=== PATIENT | female | born 1940 | race Caucasian/White ===

== ENCOUNTER 2021-05-27 18:54 | Inpatient (IN) ==
[2021-05-27] MEDS ORDERED: IOPAMIDOL 100 ML BOTTLE IV ONE (18:55)
--- NOTE | 2021-05-27 19:19 | Emergency Department Note ---
HPI General Chief complaint: Abdominal Pain Stated complaint: Abdominal pain Time Seen by Provider: 05/27/21 19:18 Source: patient and family (son) Mode of arrival: ambulatory Limitations: no limitations History of Present Illness HPI Narrative: Narrative: 81-year-old female presents emergency department complaining of severe right lower quadrant pain that radiates across the lower abdomen to the left lower quadrant. She rates the pain is a 10 on a 0-to-10 scale. States it is constant. Describes it as sharp. No prior similar. States it has somewhat of a rumbly feeling with it. States the pain began at 1430 today. Has associated mild bilateral lower back pain. Nothing makes it better. Palpation makes it worse. Patient has a history of diverticulitis and possibly polyps. She had a partial colectomy years ago. Patient has COPD which has left her oxygen dependent. States that she quit smoking tobacco. Related Data Home Medications Medication Instructions Recorded Confirmed ascorbate calcium (vitamin C) 500 500 mg PO QDAY 05/23/19 05/28/21 mg tablet cholecalciferol (vitamin D3) 1,000 mg PO DAILY 05/23/19 05/28/21 lorazepam 0.5 mg tablet 0.5 mg PO PRN PRN 05/27/21 05/28/21 Previous Rx's Medication Instructions Recorded fluticasone fur. 100 mcg-umeclid 1 inh INHALATION Q24H #60 ea 11/16/20 62.5 mcg-vilant 25 mcg inhalat.powder (Trelegy Ellipta) lisinopril 20 mg tablet 20 mg PO QDAY #90 tab 11/30/20 Allergies Allergy/AdvReac Type Severity Reaction Status Date / Time prednisone Allergy Intermediate Nervousness Verified 05/27/21 18:58 Review of Systems ROS ROS Narrative: Narrative: Constitutional: Denies fever Eyes: Denies eye pain ENT ED: Reports rhinorrhea; Denies ear pain or throat pain Cardiovascular: Denies chest pain Respiratory: Reports shortness of breath (Chronic, COPD,.) Gastrointestinal: Reports abdominal pain (Right lower quadrant with radiation to the left lower quadrant); Denies nausea or vomiting Genitourinary: Denies dysuria Musculoskeletal: Reports back pain Integumentary: Denies rash Neurological: Denies headache Psychiatric: Reports anxiety; Denies depression Hematological/Lymphatic: Denies easy bleeding Allergic/Immunologic: Denies facial swelling PFSH Narrative Patient History Narrative: Narrative: Medical/Surgical/Family History All Active Problems (Updated 05/28/21 @ 11:34 by Stef Bruno MD) Small bowel obstruction (Acute) COPD (chronic obstructive pulmonary disease) (Acute) Diverticulosis of colon (Acute) SBO (small bowel obstruction) (Acute) Allergic contact dermatitis (Acute) Acute diverticulitis (Chronic) Lower abdominal pain (Chronic) Medicare annual wellness visit, subsequent (Chronic) Asymptomatic bacteriuria (Chronic) Community acquired pneumonia (Chronic) Generalized anxiety disorder with panic attacks (Chronic) Osteoporosis (Chronic) Hypoxia (Chronic) HTN (hypertension) (Chronic) Emphysema of lung (Chronic) Bronchitis (Chronic) Mumps (Chronic) Measles (Chronic) Diverticulitis (Chronic ~2006) COPD (chronic obstructive pulmonary disease) (Chronic) Medication side effects (Chronic) Acute anxiety (Chronic) Abdominal pain (Chronic) Medical History Abdominal pain Acute anxiety Acute exacerbation of chronic obstructive airways disease Treated for pneumonia with COPD exacerbation. Back to baseline. Continue baseline treatment for COPD including Pulmicort, Anoro, as needed albuterol, and supplemental O2. Bronchitis COPD (chronic obstructive pulmonary disease) Diverticulitis (~2006) Emphysema of lung HTN (hypertension) Well-controlled at rest Continue lisinopril 20 mg daily Low-sodium diet Hypoxia 3 L continuously Measles As a child Medicare annual wellness visit, subsequent Medication side effects Mumps As a child Surgical History H/O section History of colonoscopy History of hernia repair History of hysterectomy Hx of appendectomy Hx of tonsillectomy S/P KLARISSA-BSO (~1969) Family History Father Old age Father Old age Social History Smoking Status: Former smoker Alcohol Intake Frequency: holiday/special occasion only Substance Use: does not use Exam Narrative Narrative: Narrative: Well-developed well-nourished almost cachectic appearing elderly female. Moderate acute distress. General Limitations: no limitations General appearance: Present alert and in distress Head Head: Present atraumatic and normocephalic Eye Eye: Present normal appearance and EOMI ENT ENT: Present mucous membranes moist and other (Mostly edentulous. Rotten tooth left upper.) Neck Neck: Present normal inspection, full ROM and trachea midline Chest Chest: Present symmetric chest wall rise Respiratory Respiratory: Present normal lung sounds bilaterally; Absent respiratory distress or wheezes Cardiovascular Cardiovascular: Present regular rate and normal rhythm Adbominal Abdominal: Present tenderness (Right lower quadrant at McBurney's point maximally. No rebound tenderness. Minimal to no referred pain with palpation.) and guarding; Absent rebound Extremities Extremities: Present normal inspection; Absent pedal edema Back Back: Present normal inspection and tenderness (Minimal tenderness with percussion of lower back bilaterally.) Neurological Neurological: Present alert and oriented X3 Psychiatric Psychiatric: Present normal affect and normal mood Skin Skin: Present warm (WNL) and dry Course Reevaluation(s) Reevaluation #1: Patient states her pain after the first dose of morphine was now down to a 4 or 5 out of 10. She was laughing with her son. I advised her that she may require hospitalization for this small bowel obstruction. Time: 20:50 Consultations Consultation #1: Patient CT came back showing findings consistent with small bowel obstruction. I discussed the case with our on-call surgeon Dr. Almaguer. He felt that because the patient was O2 dependent with her COPD and that she may require surgery which could lead to complications which could require an ICU stay and because we do not have a brass finisher and because we do not have an bottle feeder and because the patient could have an extended course he felt itwas most appropriate for the patient to be transferred to a higher level of care. Time: 20:40 Consultation #2: Discussed with Dr. Aj the hospitalist at [facility]. He pointed out that it would be a lateral transfer since they do not have a brass finisher or bottle feeder either. He stated that 60 to 70% of the time patients with this small bowel obstruction will resolve on their own and go home and not require surgery. He suggested that our hospitalist may be able to admit the patient to this facility since the patient today does not require higher level of care. If the patient fell into the category that did require higher level of care later in the patient be transferred to that point. Time: 21:35 Vital Signs Vital signs: Vital Signs Temperature 97.5 F 05/27/21 18:55 Pulse Rate 91 H 05/27/21 18:55 Respiratory Rate 22 05/27/21 18:55 Blood Pressure 167/97 05/27/21 18:55 Pulse Oximetry (%) 98 05/27/21 18:55 Temperature 97.7 F 05/28/21 07:23 Pulse Rate 73 05/28/21 07:23 Respiratory Rate 18 05/28/21 07:23 Blood Pressure 109/63 05/28/21 07:23 Pulse Oximetry (%) 99 05/28/21 08:30 MDM MDM Narrative Medical decision making narrative: Narrative: Elderly cachectic female presents to the emergency department complaining of s evere right lower quadrant pain. History of partial colectomy secondary to diverticulitis and possibly polyps. Quit smoking but has oxygen dependent COPD. Differential diagnosis includes acute appendicitis, diverticulitis, perforated viscus, Meckel's diverticulum, UTI, pyelonephritis, bowel obstruction, tumor, other UA will be obtained to evaluate for urinary tract infection or pyelonephritis. Blood work will be obtained to assess the patient. CT scan of the abdomen is pending. Patient was medicated with morphine initially to help control her 10 out of 10 pain. She was given Zofran for control of nausea. White count normal at 10.4. hg. 13.1. plt 145. LACTATE normal at 1.0. lipase normal at 44. Chem panel unremarkable. UA neg. CT = Extensive Diverticulosis. small bowel obstruction with transition point within the RLQ. Discussed paraprofessional aide Surgeon Dr. Almaguer. He felt pt. should be transferred to higher level of care because we did not have brass finisher nor bottle feeder. Discussed with Dr. Vitale, hospitalist at [facility]. He said they were not a higher level of care, but this was a pt. that they would admit if she presented to their hospital. He felt our hospitalist would likely admit since 60-70% of these pt. are discharged home without surgery. Said if our hospitalist would not admit, then call him back and he would accept even though they do not have a brass finisher nor an bottle feeder. Discussed with our hospitalist Dr. Shay. He had some concerns about the difficulty of transferring the pt. if pt needed higher level of care. he also said chance of pt. gonig home without surgery was >70%. he agreed to accept the pt. for admission. Post Morphine 2 mg. pt. was feeling much better. Covid test negative. Lab Data Result diagrams: 05/27/21 19:39 05/28/21 05:27 Labs: Lab Results 05/27/21 05/27/21 05/27/21 Range/Units 19:39 19:39 19:39 WBC 10.4 (4.5-11.0) K/mcL RBC 4.17 (3.59-5.38) M/mcL Hgb 13.1 (11.2-15.7) g/dL Hct 41.0 (34.1-44.9) % MCV 98.3 (80.0-100.0) fL MCH 31.4 (26.0-34.0) pg MCHC 32.0 (31.0-36.0) g/dL RDW 12.7 (11.5-14.5) % Plt Count 145 (140-440) K/mcL MPV 13.6 H (7.4-10.4) fL Neut % (Auto) 82.4 H (38.0-78.0) % Lymph % (Auto) 10.0 L (15.5-49.0) % [place] % (Auto) 6.0 (1.0-12.0) % Eos % (Auto) 1.3 (0.0-7.0) % Baso % (Auto) 0.3 (0.0-2.0) % Lymph # (Auto) 1.04 L (1.50-4.80) K/mcL [place] # (Auto) 0.62 (0.10-0.90) K/mcL Eos # (Auto) 0.14 (0.00-0.70) K/mcL Baso # (Auto) 0.03 (0.00-0.30) K/mcL Absolute Neutrophils 8.56 H (1.80-8.00) K/mcL VBG Lactic Acid 1.0 (0.5-2.0) mmol/L Sodium 137 (133-145) mmol/L Potassium 4.0 (3.3-5.1) mmol/L Chloride 98 (96-108) mmol/L Carbon Dioxide 33 H (22-30) mmol/L Anion Gap 6.0 L (8.0-16.0) BUN 12 (8-23) mg/dL Creatinine 0.5 L (0.6-1.1) mg/dL POC Creatinine 0.6 (0.6-1.2) mg/dL GFR Calculation 91 Glucose 118 H (70-105) mg/dL Calcium 9.6 (8.6-10.4) mg/dL Total Bilirubin 0.5 (0.1-1.0) mg/dL AST 21 (<32) U/L ALT 16 (<40) U/L Alkaline Phosphatase 69 (39-117) U/L Total Protein 6.7 (5.9-8.4) gm/dL Albumin 4.2 (3.2-5.2) gm/dL Globulin 2.5 (2.2-3.7) gm/dL Albumin/Globulin Ratio 1.7 (1.0-2.3) Lipase 44 (7-60) U/L Urine Color Urine Appearance (Clear) Urine pH (5.0-9.0) Ur Specific [place] (1.000-1.035) Urine Protein (Negative) mg/dL Urine Glucose (UA) (Negative) mg/dL Urine Ketones (Negative) mg/dL Urine Occult Blood (Negative) mg/dL Urine Nitrate (Negative) Urine Bilirubin (Negative) mg/dL Urine Urobilinogen mg/dL Ur Leukocyte Esterase (Negative) /uL Ur Culture Indicated? 05/27/21 Range/Units 20:55 WBC (4.5-11.0) K/mcL RBC (3.59-5.38) M/mcL Hgb (11.2-15.7) g/dL Hct (34.1-44.9) % MCV (80.0-100.0) fL MCH (26.0-34.0) pg MCHC (31.0-36.0) g/dL RDW (11.5-14.5) % Plt Count (140-440) K/mcL MPV (7.4-10.4) fL Neut % (Auto) (38.0-78.0) % Lymph % (Auto) (15.5-49.0) % [place] % (Auto) (1.0-12.0) % Eos % (Auto) (0.0-7.0) % Baso % (Auto) (0.0-2.0) % Lymph # (Auto) (1.50-4.80) K/mcL [place] # (Auto) (0.10-0.90) K/mcL Eos # (Auto) (0.00-0.70) K/mcL Baso # (Auto) (0.00-0.30) K/mcL Absolute Neutrophils (1.80-8.00) K/mcL VBG Lactic Acid (0.5-2.0) mmol/L Sodium (133-145) mmol/L Potassium (3.3-5.1) mmol/L Chloride (96-108) mmol/L Carbon Dioxide (22-30) mmol/L Anion Gap (8.0-16.0) BUN (8-23) mg/dL Creatinine (0.6-1.1) mg/dL POC Creatinine (0.6-1.2) mg/dL GFR Calculation Glucose (70-105) mg/dL Calcium (8.6-10.4) mg/dL Total Bilirubin (0.1-1.0) mg/dL AST (<32) U/L ALT (<40) U/L Alkaline Phosphatase (39-117) U/L Total Protein (5.9-8.4) gm/dL Albumin (3.2-5.2) gm/dL Globulin (2.2-3.7) gm/dL Albumin/Globulin Ratio (1.0-2.3) Lipase (7-60) U/L Urine Color Yellow Urine Appearance Hazy A (Clear) Urine pH 8.0 (5.0-9.0) Ur Specific [place] 1.030 (1.000-1.035) Urine Protein Negative (Negative) mg/dL Urine Glucose (UA) Negative (Negative) mg/dL Urine Ketones Negative (Negative) mg/dL Urine Occult Blood Negative (Negative) mg/dL Urine Nitrate Negative (Negative) Urine Bilirubin Negative (Negative) mg/dL Urine Urobilinogen Negative mg/dL Ur Leukocyte Esterase Negative (Negative) /uL Ur Culture Indicated? No ED POC Tests ED POC Tests: FABIANA - SARS Antigen Negative EKG Data EKG #1: EKG attestation: Yes I reviewed and interpreted this EKG. EKG shows normal: sinus rhythm Rate: normal Rhythm: NSR and PAC's [place]/QRS: normal Voltage: normal Heart block present: None ST segment elevation in: None ST segment depression in: None Hyperacute T waves: None Ectopy: PAC Interpretation: other (Abnormal EKG) Discharge Plan Patient/Caregiver Discharge Instructions Pt seen by ELECTRIC TRUCKER/PA only: No Clinical Impression: Small bowel obstruction, Diverticulosis of colon COPD (chronic obstructive pulmonary disease) Qualifiers: COPD type: emphysema Emphysema type: unspecified Qualified Code(s): J43.9 - Emphysema, unspecified Patient Disposition: Xfer As Inpt ([facility]) Condition: Fair Discharge Date/Time: 05/27/21 23:23
[2021-05-27] MEDS ORDERED: 0.9 % SODIUM CHLORIDE 1,000 ML IV ONE (19:29)
[2021-05-27] MEDS ORDERED: ONDANSETRON 4 MG/2 ML VIAL IV ONE (19:29)
[2021-05-27 19:55] LABS: POC Creatinine 0.6 mg/dL (0.6-1.2)
[2021-05-27] MEDS: morphine 2 MG/ML VIAL IV PRN ×2 (19:55→21:54)
[2021-05-27 20:24] LABS: Basophils # (Auto) 0.03 K/mcL (0.00-0.30); Basophils % (Auto) 0.3 % (0.0-2.0); Eosinophils # (Auto) 0.14 K/mcL (0.00-0.70); Eosinophils % (Auto) 1.3 % (0.0-7.0); Hemoglobin 13.1 g/dL (11.2-15.7); Lymphocytes # (Auto) 1.04 K/mcL (1.50-4.80); Mean Cell Volume 98.3 fL (80.0-100.0); Mean Platelet Volume 13.6 fL (7.4-10.4); Monocytes # (Auto) 0.62 K/mcL (0.10-0.90); Neutrophils % (Auto) 82.4 % (38.0-78.0); Platelet Count 145 K/mcL (140-440); RBC 4.17 M/mcL (3.59-5.38); Red Cell Distribution Width 12.7 % (11.5-14.5); WBC 10.4 K/mcL (4.5-11.0)
[2021-05-27 20:42] LABS: ALT/SGPT 16 U/L (<40); AST/SGOT 21 U/L (<32); Albumin 4.2 gm/dL (3.2-5.2); Albumin/Globulin Ratio 1.7 (1.0-2.3); Alkaline Phosphatase 69 U/L (39-117); Bilirubin,Total 0.5 mg/dL (0.1-1.0); Blood Urea Nitrogen 12 mg/dL (8-23); Calcium 9.6 mg/dL (8.6-10.4); Carbon Dioxide 33 mmol/L (22-30); Chloride 98 mmol/L (96-108); Globulin 2.5 gm/dL (2.2-3.7); Glomerular Filtration Rate 91; Glucose 118 mg/dL (70-105)
--- NOTE | 2021-05-27 22:05 | Internal Med History&Physical ---
HPI History of Present Illness Patient information: Note initiated : 05/27/21 at 10:00 pm Service Date, if different from initiated Date: [] Patient: Georgina Isaacs 81 y/o F admitted on for Abdominal pain. Chief Complaint: [] History of present illness: Ms. Isaacs is a 81 year old female with a history of partial colectomy, hysterectomy, oxygen dependent COPD, hypertension who presented to the emergency department for abdominal pain was found to have a small bowel obstruction on CT scan showing a transitional point in the right lower quadrant. General surgery recommended that the patient be transferred to a higher level of care, the emergency room department provider consulted with [facility] however transfer was refused at that facility. The patient did not want to transfer out of the [facility], instead wanted to try conservative management at [facility]. The concern is the patient's severe oxygen dependent COPD, if she required surgery it is unlikely we would be able to extubate the patient after surgery leading to prolonged ventilator weaning and possible requirement for tracheostomy. With the understanding that we would not provide operative intervention at [place] instead only conservative management, in keeping with the patient's wishes to remain in the [facility] medicine agreed to admit the patient for conservative management of the small bowel obstruction. Review of systems Constitutional: no fever, fatigue, or weight loss Eyes: no vision changes or pain Cardiovascular: no chest pain, no palpitations Respiratory: no cough or dyspnea Gastrointestinal: Positive for nausea, abdominal pain. Genitourinary: no dysuria or difficulty voiding Musculoskeletal: no arthralgia or myalgia Integumentary: no skin lesion or wound Neurological: no focal weakness or numbness Psychiatric: no anxiety or depression Physical exam Head: Atraumatic, normal inspection. Eyes: normal appearance, no scleral icterus. Neck: full ROM Respiratory: no respiratory distress. Cardiovascular: normal rate and rhythm, S1, S2. GI/Abdominal: Abdominal tenderness most pronounced in the right lower quadrant, no guarding, no rebound tenderness. Extremities: full range of motion, nontender. Neurological: CN II-XII intact, intact motor, intact sensation. Psychiatric: normal mood. Skin: warm, normal color PFSH PFSH All Active Problems (Updated 05/28/21 @ 11:34 by Stef Bruno MD) Small bowel obstruction (Acute) COPD (chronic obstructive pulmonary disease) (Acute) Diverticulosis of colon (Acute) SBO (small bowel obstruction) (Acute) Allergic contact dermatitis (Acute) Acute diverticulitis (Chronic) Lower abdominal pain (Chronic) Medicare annual wellness visit, subsequent (Chronic) Asymptomatic bacteriuria (Chronic) Community acquired pneumonia (Chronic) Generalized anxiety disorder with panic attacks (Chronic) Osteoporosis (Chronic) Hypoxia (Chronic) HTN (hypertension) (Chronic) Emphysema of lung (Chronic) Bronchitis (Chronic) Mumps (Chronic) Measles (Chronic) Diverticulitis (Chronic ~2006) COPD (chronic obstructive pulmonary disease) (Chronic) Medication side effects (Chronic) Acute anxiety (Chronic) Abdominal pain (Chronic) Medical History Abdominal pain Acute anxiety Acute exacerbation of chronic obstructive airways disease Treated for pneumonia with COPD exacerbation. Back to baseline. Continue baseline treatment for COPD including Pulmicort, Anoro, as needed albuterol, and supplemental O2. Bronchitis COPD (chronic obstructive pulmonary disease) Diverticulitis (~2006) Emphysema of lung HTN (hypertension) Well-controlled at rest Continue lisinopril 20 mg daily Low-sodium diet Hypoxia 3 L continuously Measles As a child Medicare annual wellness visit, subsequent Medication side effects Mumps As a child Surgical History H/O section History of colonoscopy History of hernia repair History of hysterectomy Hx of appendectomy Hx of tonsillectomy S/P KLARISSA-BSO (~1969) Family History Father Old age Father Old age Social History marital status: occupational status: retired smoking status: Former smoker quit date: 02/20/11 smoking status start date: 02/21/84 smoking status stop date: 02/20/11 alcohol intake frequency: holiday/special occasion only substance use type: does not use MEDS/ALLERGIES Home Medications and Allergies Home Medications Medication Instructions Recorded Confirmed Type ascorbate calcium (vitamin C) 500 500 mg PO QDAY 05/23/19 05/28/21 History mg tablet cholecalciferol (vitamin D3) 1,000 mg PO DAILY 05/23/19 05/28/21 History fluticasone fur. 100 mcg-umeclid 1 inh INHALATION Q24H #60 ea 11/16/20 05/28/21 Rx 62.5 mcg-vilant 25 mcg inhalat.powder (Trelegy Ellipta) lisinopril 20 mg tablet 20 mg PO QDAY #90 tab 11/30/20 05/28/21 Rx lorazepam 0.5 mg tablet 0.5 mg PO PRN PRN 05/27/21 05/28/21 History Allergies Allergy/AdvReac Type Severity Reaction Status Date / Time prednisone Allergy Intermediate Nervousness Verified 05/27/21 18:58 EXAM Constitutional Vitals: Temp Pulse Resp BP Pulse Ox 97.5 F 92 H 22 139/76 100 05/27/21 18:55 05/27/21 21:46 05/27/21 21:46 05/27/21 21:46 05/27/21 21:46 DATA Data Completed and Pending Labs: Labs from last 24 hours 05/27/21 05/27/21 05/27/21 20:55 19:39 19:39 WBC RBC Hgb Hct MCV MCH MCHC RDW Plt Count MPV Neut % (Auto) Lymph % (Auto) [place] % (Auto) Eos % (Auto) Baso % (Auto) Lymph # (Auto) [place] # (Auto) Eos # (Auto) Baso # (Auto) Absolute Neutrophils VBG Lactic Acid 1.0 Sodium 137 Potassium 4.0 Chloride 98 Carbon Dioxide 33 H Anion Gap 6.0 L BUN 12 Creatinine 0.5 L POC Creatinine 0.6 GFR Calculation 91 Glucose 118 H Calcium 9.6 Total Bilirubin 0.5 AST 21 ALT 16 Alkaline Phosphatase 69 Total Protein 6.7 Albumin 4.2 Globulin 2.5 Albumin/Globulin Ratio 1.7 Lipase 44 Urine Color Pending Urine Appearance Pending Urine pH Pending Ur Specific [place] Pending Urine Protein Pending Urine Glucose (UA) Pending Urine Ketones Pending Urine Occult Blood Pending Urine Nitrate Pending Urine Bilirubin Pending Urine Urobilinogen Pending Ur Leukocyte Esterase Pending 05/27/21 19:39 WBC 10.4 RBC 4.17 Hgb 13.1 Hct 41.0 MCV 98.3 MCH 31.4 MCHC 32.0 RDW 12.7 Plt Count 145 MPV 13.6 H Neut % (Auto) 82.4 H Lymph % (Auto) 10.0 L [place] % (Auto) 6.0 Eos % (Auto) 1.3 Baso % (Auto) 0.3 Lymph # (Auto) 1.04 L [place] # (Auto) 0.62 Eos # (Auto) 0.14 Baso # (Auto) 0.03 Absolute Neutrophils 8.56 H VBG Lactic Acid Sodium Potassium Chloride Carbon Dioxide Anion Gap BUN Creatinine POC Creatinine GFR Calculation Glucose Calcium Total Bilirubin AST ALT Alkaline Phosphatase Total Protein Albumin Globulin Albumin/Globulin Ratio Lipase Urine Color Urine Appearance Urine pH Ur Specific [place] Urine Protein Urine Glucose (UA) Urine Ketones Urine Occult Blood Urine Nitrate Urine Bilirubin Urine Urobilinogen Ur Leukocyte Esterase A/P Narrative A/P Narrative: Assessment: 81 year old female with a history of partial colectomy, hysterectomy, oxygen dependent COPD, hypertension admitted for a small bowel obstruction. #Small bowel obstruction #COPD with chronic hypoxia, stable #Essential hypertension Plan -IV fluid, analgesics prn. -Serial abdominal exams. -Replace electrolytes as needed. -Nasogastric tube placement for suctioning. -NPO until bowel function begins to recover. -Consider empiric antibiotic coverage -Home medications reconciliation, resume important meds. -DVT prophylaxis: Lovenox -Disposition: TBD, if small bowel obstruction does not resolve with conservative management will likely have to transfer to a higher level of care. Time Spent With Patient Time: Total time spent is greater than 50% in coordination of care (as documented) at patient's floor/unit and/or counseling patient:
[2021-05-27 22:25] LABS: Appearance,Urine HAZY (Clear); Bilirubin,Urine Negative (Negative); Color,Urine YELLOW; Culture Indicated,Urine No; Glucose,Urine (UA) Negative (Negative); Ketones,Urine Negative (Negative); Leukocyte Esterase,Urine Negative /uL (Negative); Nitrate,Urine Negative (Negative); Protein,Urine Negative (Negative); Urine Blood Negative (Negative); Urobilinogen,Urine Negative
[2021-05-27] MEDS: 0.9 % SODIUM CHLORIDE 10 ML SYRINGE IV SCH (23:48)
[2021-05-27] MEDS: LACTATED RINGERS 1,000 ML IV SCH (23:49)
[2021-05-28] MEDS: HYDROcodone/APAP 5/325MG TABLET PO PRN ×2 (02:46→10:36)
[2021-05-28] MEDS ORDERED: HYDROcodone/APAP 5/325MG TABLET PO ONE (02:51)
[2021-05-28] MEDS: HYDROmorphone 0.5 MG/0.5 ML SYRINGE IV PRN ×2 (04:48→20:28)
[2021-05-28] MEDS: 0.9 % SODIUM CHLORIDE 10 ML SYRINGE IV SCH ×3 (04:54→21:26)
[2021-05-28] MEDS ORDERED: HYDROmorphone 0.5 MG/0.5 ML SYRINGE ONE (04:55)
[2021-05-28] MEDS: ONDANSETRON 4 MG/2 ML VIAL IV PRN ×2 (06:02→12:38)
--- NOTE | 2021-05-28 06:56 | Cat Scan Report ---
INDICATION: RLQ abd pain. s/p part colectomy divertic. polyps? COMPARISON: Previous examinations dated 03/25/2020, 08/29/2018, 10/11/2017 TECHNIQUE: Axial images were obtained through the abdomen and pelvis. Sagittally and coronally reformatted images. 70 mL Isovue 370 injected intravenously. Oral contrast material was not administered FINDINGS: Examination was initially interpreted by [facility] Lung bases:Severe emphysema. No parenchymal consolidation or suspicious mass. Liver:Negative. No focal intrahepatic mass. No focal abnormality. Liver contour is smooth. No evidence for cirrhosis Gallbladder, bilary:No calcified gallstones. No gallbladder wall thickening. No dilated intra or extrahepatic bile ducts. Spleen:No splenomegaly. Normal enhancement of splenic and portal veins. Pancreas:No pancreatic mass. No peripancreatic abnormality Adrenal glands:Negative Kidneys,ureters,bladder:Negative right kidney. No hydronephrosis. No solid right renal mass. 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 Patient does not give a history of left nephrectomy No hydroureter. No ureteral calculus. No bladder stone. No detectable bladder mass. Gastrointestinal:History of previous partial colon resection. There is extensive sigmoid diverticulosis. No evidence for diverticulitis. No detectable colonic mass Dilated jejunum and portion of the ileum. Appearance is consistent with mechanical small bowel obstruction. There is small bowel dilatation. Small bowel contains fluid and gas. Small bowel measures approximately 2.5 cm in cross-sectional diameter. There is a transition point in the right lower quadrant. There is no evidence for closed loop obstruction. Bowel appears perfused. Stomach is not significantly distended. Appendix: The appendix is nonvisualized and probably removed Vascular:Calcification of the abdominal aorta. No abdominal aortic aneurysm. 14 mm calcified right renal artery as described above Lymphatic:No retroperitoneal or mesenteric adenopathy Mesentery, peritoneum: No pneumoperitoneum. No intra-abdominal abscess. Reproductive:Previous hysterectomy. No pelvic mass Musculoskeletal:Degenerative disc disease at L4-5. No compression fractures. No sacral or pelvic fracture. Hips are negative There is a large anterior abdominal wall has. No abdominal wall or inguinal hernia IMPRESSION: 1. Mechanical small bowel obstruction. Transition point in the right lower quadrant 2. Severe emphysema 3. 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 Extensive diverticulosis. No evidence for diverticulitis 5. 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 Previous partial colon resection, left nephrectomy, appendectomy, hysterectomy, oophorectomy The exam was performed using radiation dose optimization techniques including, but not limited to, automated exposure control, adjustment of the mA and/or kV according to patient size and use of iterative reconstruction technique. Interpreted and Authenticated by: Darell Milner 05/28/21
--- NOTE | 2021-05-28 06:57 | XRay Report ---
INDICATION: Severe abdominal pain TECHNIQUE: AP portable semiupright chest x-ray COMPARISON: Previous chest x-ray dated 11/24/2019. Previous chest CT scan dated 11/24/2019, 07/05/2019 FINDINGS: Lungs:Severe emphysema. No acute parenchymal infiltrate or mass. Heart, vascular:No significant cardiomegaly. Pulmonary vascularity is normal. No pulmonary edema or pulmonary congestion Mediastinum, too:No mediastinal widening. No hilar mass Pleura:No pleural fluid. No pleural-based mass or calcification Skeletal:Negative. IMPRESSION: 1. Severe emphysema 2. No acute infiltrate Interpreted and Authenticated by: Darell Milner 05/28/21
[2021-05-28 07:34] LABS: ALT/SGPT 14 U/L (<40); AST/SGOT 22 U/L (<32); Albumin 3.7 gm/dL (3.2-5.2); Albumin/Globulin Ratio 1.9 (1.0-2.3); Alkaline Phosphatase 60 U/L (39-117); Bilirubin,Direct < 0.2 mg/dL (0-0.3); Bilirubin,Total 0.6 mg/dL (0.1-1.0); Blood Urea Nitrogen 8 mg/dL (8-23); Calcium 8.8 mg/dL (8.6-10.4); Carbon Dioxide 32 mmol/L (22-30); Chloride 100 mmol/L (96-108); Globulin 1.9 gm/dL (2.2-3.7); Glomerular Filtration Rate 91; Glucose 104 mg/dL (70-105); Lactate Dehydrogenase 284 U/L (135-225); Triglycerides 51 mg/dL (<150); Uric Acid 3.8 mg/dL (2.5-8.0)
[2021-05-28] MEDS: LACTATED RINGERS 1,000 ML IV SCH ×2 (10:03→20:27)
[2021-05-28] MEDS: ENOXAPARIN 40 MG/0.4 ML SYRINGE SQ SCH (10:04)
[2021-05-28] MEDS: DOCUSATE SODIUM 100 MG CAPSULE PO SCH ×2 (10:06→20:27)
--- NOTE | 2021-05-28 10:06 | EKG ---
[facility] Test Date: 2021-05-27 Pat Name: Georgina Isaacs Department: ED Room: Gender: Female [employer] Referee: MARIA DEL CARMEN : 1940 Requested By: Stef Bruno Order Number: [id number] Reading MD: Darell Sanderson M.D. Measurements Intervals [place] Rate: 91 P: 82 OH: 164 QRS: 85 QRSD: 86 T: 68 QT: 333 QTc: 410 Interpretive Statements Sinus rhythm Atrial premature complexes Biatrial enlargement Electronically Signed On 05-28-2021 10:06:49 PDT by Darell Sanderson M.D. /store/[email or web address]/[id number]
--- NOTE | 2021-05-28 11:05 | General Surgery Consult Note ---
HPI Data of Consult Patient: new to practice Consult date: 05/28/21 Requesting physician: Celestino Jo Primary Care Provider: Darell Leo DO Consult Narrative Chief complaint: Abdominal Pain Reason for consult: Evidence of a SBO History of present illness: Ms Isaacs is seen in consultation today after presentation to the ER last night with a short duration of increasing abdominal pain localized to the RLQ and radi ographic evidence of an SBO. She has had numerous past operations including a prior presumed Left or Sigmoid Colectomy for past bouts of diverticulitis. This was many years ago. She has not had prior bowel obstructions per her history. Of note, she has severe end stage COPD/Emphysema and remains SOB on constant supplemental Oxygen. She is not currently on any oral anticoagulation. cc:: CC: Celestino Jo MD PFSH PFSH All Active Problems (Updated 05/28/21 @ 11:12 by Familia Almaguer MD) SBO (small bowel obstruction) (Acute) Allergic contact dermatitis (Acute) Acute diverticulitis (Chronic) Lower abdominal pain (Chronic) Medicare annual wellness visit, subsequent (Chronic) Asymptomatic bacteriuria (Chronic) Community acquired pneumonia (Chronic) Generalized anxiety disorder with panic attacks (Chronic) Osteoporosis (Chronic) Hypoxia (Chronic) HTN (hypertension) (Chronic) Emphysema of lung (Chronic) Bronchitis (Chronic) Mumps (Chronic) Measles (Chronic) Diverticulitis (Chronic ~2006) COPD (chronic obstructive pulmonary disease) (Chronic) Medication side effects (Chronic) Acute anxiety (Chronic) Abdominal pain (Chronic) Medical History Abdominal pain Acute anxiety Acute exacerbation of chronic obstructive airways disease Treated for pneumonia with COPD exacerbation. Back to baseline. Continue baseline treatment for COPD including Pulmicort, Anoro, as needed albuterol, and supplemental O2. Bronchitis COPD (chronic obstructive pulmonary disease) Diverticulitis (~2006) Emphysema of lung HTN (hypertension) Well-controlled at rest Continue lisinopril 20 mg daily Low-sodium diet Hypoxia 3 L continuously Measles As a child Medicare annual wellness visit, subsequent Medication side effects Mumps As a child Surgical History H/O section History of colonoscopy History of hernia repair History of hysterectomy Hx of appendectomy Hx of tonsillectomy S/P KLARISSA-BSO (~1970) Family History Father Old age Father Old age Social History marital status: occupational status: retired smoking status: Former smoker quit date: 02/20/11 smoking status start date: 02/21/84 smoking status stop date: 02/20/11 alcohol intake frequency: holiday/special occasion only substance use type: does not use MEDS/ALLERGIES Home Medications and Allergies Home Medications Medication Instructions Recorded Confirmed Type ascorbate calcium (vitamin C) 500 500 mg PO QDAY 05/23/19 05/28/21 History mg tablet cholecalciferol (vitamin D3) 1,000 mg PO DAILY 05/23/19 05/28/21 History fluticasone fur. 100 mcg-umeclid 1 inh INHALATION Q24H #60 ea 11/16/20 05/28/21 Rx 62.5 mcg-vilant 25 mcg inhalat.powder (Trelegy Ellipta) lisinopril 20 mg tablet 20 mg PO QDAY #90 tab 11/30/20 05/28/21 Rx lorazepam 0.5 mg tablet 0.5 mg PO PRN PRN 05/27/21 05/28/21 History Allergies Allergy/AdvReac Type Severity Reaction Status Date / Time prednisone Allergy Intermediate Nervousness Verified 05/27/21 18:58 Physical Examination Vital Signs Vital signs: Temp Pulse Resp BP Pulse Ox 97.7 F 73 18 109/63 99 05/28/21 07:23 05/28/21 07:23 05/28/21 07:23 05/28/21 07:23 05/28/21 08:30 General physical appearance General physical exam: other (Speaks in short sentences but otherwise appears in NAD and states her abdominal pain is substantially improved ) ENT ENT exam: other (normal appearing facial exam ) Head Head exam IM: Present atraumatic, normal inspection and normocephalic Neck Neck exam: no masses, trachea midline and no lymphadenopathy Cardiovascular Cardiovascular exam IM: Present normal rate and rhythm Respiratory Respiratory exam: other (on supplemental O2 with minimally labored respiratory effort ) Abdomen Abdomen: Present soft (belly is soft but somewhat protuberant, minimally tender in the RLQ and non tender elsewhere. No mass or hernia is noted ) and distended Integumentary Integumentary: Present other (normal appearing intact skin ) Neurologic Neurologic: Present other (appears intact and fully oriented ) Results Labs Result diagrams: 05/27/21 19:39 05/28/21 05:27 Labs: Abnormal lab results 05/27/21 05/27/21 05/27/21 Range/Units 19:39 19:39 20:55 MPV 13.6 H (7.4-10.4) fL Neut % (Auto) 82.4 H (38.0-78.0) % Lymph % (Auto) 10.0 L (15.5-49.0) % Lymph # (Auto) 1.04 L (1.50-4.80) K/mcL Absolute Neutrophils 8.56 H (1.80-8.00) K/mcL Carbon Dioxide 33 H (22-30) mmol/L Anion Gap 6.0 L (8.0-16.0) Creatinine 0.5 L (0.6-1.1) mg/dL Glucose 118 H (70-105) mg/dL Lactate Dehydrogenase (135-225) U/L Total Protein (5.9-8.4) gm/dL Globulin (2.2-3.7) gm/dL Urine Appearance Hazy A (Clear) 05/28/21 Range/Units 05:27 MPV (7.4-10.4) fL Neut % (Auto) (38.0-78.0) % Lymph % (Auto) (15.5-49.0) % Lymph # (Auto) (1.50-4.80) K/mcL Absolute Neutrophils (1.80-8.00) K/mcL Carbon Dioxide 32 H (22-30) mmol/L Anion Gap 5.0 L (8.0-16.0) Creatinine 0.5 L (0.6-1.1) mg/dL Glucose (70-105) mg/dL Lactate Dehydrogenase 284 H (135-225) U/L Total Protein 5.6 L (5.9-8.4) gm/dL Globulin 1.9 L (2.2-3.7) gm/dL Urine Appearance (Clear) Diabetes panel 05/27/21 05/28/21 Range/Units 19:39 05:27 Sodium 137 137 (133-145) mmol/L Potassium 4.0 4.2 (3.3-5.1) mmol/L Chloride 98 100 (96-108) mmol/L Carbon Dioxide 33 H 32 H (22-30) mmol/L BUN 12 8 (8-23) mg/dL Creatinine 0.5 L 0.5 L (0.6-1.1) mg/dL Glucose 118 H 104 (70-105) mg/dL Calcium 9.6 8.8 (8.6-10.4) mg/dL AST 21 22 (<32) U/L ALT 16 14 (<40) U/L Alkaline Phosphatase 69 60 (39-117) U/L Total Protein 6.7 5.6 L (5.9-8.4) gm/dL Albumin 4.2 3.7 (3.2-5.2) gm/dL Triglycerides 51 (<150) mg/dL Calcium panel 05/27/21 05/28/21 Range/Units 19:39 05:27 Calcium 9.6 8.8 (8.6-10.4) mg/dL Phosphorus 3.0 (2.5-4.5) mg/dL Albumin 4.2 3.7 (3.2-5.2) gm/dL Pituitary panel 05/27/21 05/28/21 Range/Units 19:39 05:27 Sodium 137 137 (133-145) mmol/L Potassium 4.0 4.2 (3.3-5.1) mmol/L Chloride 98 100 (96-108) mmol/L Carbon Dioxide 33 H 32 H (22-30) mmol/L BUN 12 8 (8-23) mg/dL Creatinine 0.5 L 0.5 L (0.6-1.1) mg/dL Glucose 118 H 104 (70-105) mg/dL Calcium 9.6 8.8 (8.6-10.4) mg/dL Adrenal panel 05/27/21 05/28/21 Range/Units 19:39 05:27 Sodium 137 137 (133-145) mmol/L Potassium 4.0 4.2 (3.3-5.1) mmol/L Chloride 98 100 (96-108) mmol/L Carbon Dioxide 33 H 32 H (22-30) mmol/L BUN 12 8 (8-23) mg/dL Creatinine 0.5 L 0.5 L (0.6-1.1) mg/dL Glucose 118 H 104 (70-105) mg/dL Calcium 9.6 8.8 (8.6-10.4) mg/dL Total Bilirubin 0.5 0.6 (0.1-1.0) mg/dL AST 21 22 (<32) U/L ALT 16 14 (<40) U/L Alkaline Phosphatase 69 60 (39-117) U/L Total Protein 6.7 5.6 L (5.9-8.4) gm/dL Albumin 4.2 3.7 (3.2-5.2) gm/dL All other labs normal. A/P Assessment and plan (1) SBO (small bowel obstruction): Status: Acute Narrative A/P Narrative: Presumed adhesion related SBO Recommend NGT, IVFs, bowel rest and IV ABs Any operative intervention would almost certainly leave her intubated requiring prolonged ventilatory support post operatively and consideration of transfer to a higher level of care is again recommended and discussed We will continue to follow Time Spent With Patient Time: Total time spent is greater than 50% in coordination of care (as documented) at patient's floor/unit and/or counseling patient:
--- NOTE | 2021-05-28 15:13 | XRay Report ---
INDICATION: NG tube placement TECHNIQUE: Supine abdomen. COMPARISON: Previous CT scan dated 05/27/2021 FINDINGS:Esophagogastric tube with its tip in the body the stomach. There is dilated gas-filled small bowel consistent with this patient's diagnosis of mechanical small bowel obstruction. IMPRESSION: Esophagogastric tube within the stomach. Complete Interpreted and Authenticated by: Darell Milner 05/28/21
[2021-05-28] MEDS ORDERED: LORazepam 0.5 MG TABLET PO PRN (16:23)
[2021-05-28] MEDS: PIPERACILLIN SODIUM/TAZOBACTAM 3.375 GM in DEXTROSE 5% IN WATER 50 ML IV SCH (17:13)
[2021-05-28] MEDS: LORazepam 2 MG/ML VIAL IV PRN (17:26)
[2021-05-28] MEDS: SENNOSIDES 1 TABLET PO SCH (20:27)
[2021-05-29] MEDS: PIPERACILLIN SODIUM/TAZOBACTAM 3.375 GM in DEXTROSE 5% IN WATER 50 ML IV SCH ×5 (00:03→23:14)
[2021-05-29] MEDS: 0.9 % SODIUM CHLORIDE 10 ML SYRINGE IV SCH ×4 (05:06→23:14)
[2021-05-29] MEDS: ONDANSETRON 4 MG/2 ML VIAL IV PRN (05:41)
[2021-05-29] MEDS: LACTATED RINGERS 1,000 ML IV SCH ×2 (06:10→19:03)
[2021-05-29 07:13] LABS: ALT/SGPT 13 U/L (<40); AST/SGOT 25 U/L (<32); Albumin 3.9 gm/dL (3.2-5.2); Albumin/Globulin Ratio 2.1 (1.0-2.3); Alkaline Phosphatase 61 U/L (39-117); Bilirubin,Direct < 0.2 mg/dL (0-0.3); Bilirubin,Total 0.8 mg/dL (0.1-1.0); Blood Urea Nitrogen 8 mg/dL (8-23); Calcium 9.2 mg/dL (8.6-10.4); Carbon Dioxide 32 mmol/L (22-30); Chloride 96 mmol/L (96-108); Globulin 1.9 gm/dL (2.2-3.7); Glomerular Filtration Rate 86; Glucose 81 mg/dL (70-105); Lactate Dehydrogenase 217 U/L (135-225); Phosphorous 2.8 mg/dL (2.5-4.5); Triglycerides 72 mg/dL (<150); Uric Acid 3.1 mg/dL (2.5-8.0)
[2021-05-29] MEDS ORDERED: MAGNESIUM SULFATE 2 GM/50 ML BAG IV ONE (08:00)
[2021-05-29] MEDS: DOCUSATE SODIUM 100 MG CAPSULE PO SCH ×2 (09:56→21:06)
[2021-05-29] MEDS: ENOXAPARIN 40 MG/0.4 ML SYRINGE SQ SCH (09:57)
[2021-05-29] MEDS: Fluticasone-Umeclidin-Vilanter [Trelegy Ellipta] Inhaler INH SCH (10:08)
--- NOTE | 2021-05-29 15:03 | Internal Med Progress Note ---
SUBJECTIVE Subjective Patient information: Note initiated : 05/29/21 at 3:02 pm Service Date, if different from initiated Date: [] Patient: Georgina Isaacs 81 y/o F admitted on 05/27/21 for Abdominal pain. Chief Complaint: [] Interval history: Ms. Isaacs is a 81 year old female with a history of partial colectomy, hysterectomy, oxygen dependent COPD, hypertension who presented to the emergency department for abdominal pain was found to have a small bowel obstruction on CT scan showing a transitional point in the right lower quadrant. General surgery recommended that the patient be transferred to a higher level of care, the emergency room department provider consulted with [facility] however transfer was refused at that facility. The patient did not want to transfer out of the [facility], instead wanted to try conservative management at [facility]. The concern is the patient's severe oxygen dependent COPD, if she required surgery it is unlikely we would be able to extubate the patient after surgery leading to prolonged ventilator weaning and possible requirement for tracheostomy. With the understanding that we would not provide operative intervention at [place] instead only conservative management, in keeping with the patient's wishes to remain in the [facility] medicine agreed to admit the patient for conservative management of the small bowel obstruction. 05/29 Passing gas, NG tube suctioned 200 mL, SBO likely beginning to resolve. Surgery following, on Zosyn. Physical exam Head: Atraumatic, normal inspection. Eyes: normal appearance, no scleral icterus. Neck: full ROM Respiratory: no respiratory distress. Cardiovascular: normal rate and rhythm, S1, S2. GI/Abdominal: Nasogastric tube to suction, abdominal tenderness most pronounced in the right lower quadrant, no guarding, no rebound tenderness. Extremities: full range of motion, nontender. Neurological: CN II-XII intact, intact motor, intact sensation. Psychiatric: normal mood. Skin: warm, normal color Constitutional Vitals: Vital Signs Temp Pulse Resp BP Pulse Ox 98 F 83 16 118/90 96 05/29/21 11:34 05/29/21 11:34 05/29/21 11:34 05/29/21 11:34 05/29/21 11:34 Period Temp Pulse Resp BP Sys/Helm Pulse Ox Last 24 Hr 98 F-99.8 F 83-100 14-20 118-144/65-90 96-100 Intake and Output 05/29/21 05/29/21 05/29/21 05:59 13:59 21:59 Intake Total 50 1650 Output Total 550 250 Balance -500 1400 Intake & Output: Intake & Output 05/29/21 05/29/21 05/29/21 05:59 13:59 21:59 Intake Total 50 1650 Output Total 550 250 Balance -500 1400 Intake: IV 50 1150 Lactated Ringers 1,000 ml @ 100 1000 mls/hr IV .Q10H [facility] Rx#: [id number] Zosyn 3.375 gm In Dextrose 5% 50 100 in Water 50 ml @ 100 mls/hr IV Q6H [facility] Rx#:[id number] Oral 500 Tube Feeding 0 Output: Gastric Drainage 200 Right Nare NG/OG 200 Void Amount 350 250 Other: Urine Appearance Clear Urine Color Dark Yellow Bright Yellow Urine Odor Strong # Voids 1 OBJ DATA Labs CBC & Chem 7: 05/27/21 19:39 05/29/21 05:37 Labs: Abnormal Lab Results 05/29/21 05/28/21 05/27/21 05:37 05:27 20:55 MPV Neut % (Auto) Lymph % (Auto) Lymph # (Auto) Absolute Neutrophils Carbon Dioxide 32 H 32 H Anion Gap 5.0 L Creatinine 0.5 L Glucose Lactate Dehydrogenase 284 H Total Protein 5.8 L 5.6 L Globulin 1.9 L 1.9 L Urine Appearance Hazy A 05/27/21 05/27/21 19:39 19:39 MPV 13.6 H Neut % (Auto) 82.4 H Lymph % (Auto) 10.0 L Lymph # (Auto) 1.04 L Absolute Neutrophils 8.56 H Carbon Dioxide 33 H Anion Gap 6.0 L Creatinine 0.5 L Glucose 118 H Lactate Dehydrogenase Total Protein Globulin Urine Appearance Meds: Medications Acetaminophen (Acetaminophen 325 Mg Tablet) 650 mg PO Q6HP PRN; Protocol PRN Reason: Per Pain Protocol/Fever > 101 Hydrocodone Bitart/Acetaminophen (Hydrocodone/Apap 5/325mg Tablet) 1 tab PO Q4HP PRN; Protocol PRN Reason: Per Pain Protocol Last Admin: 05/28/21 10:36 Dose: 1 tab Documented by: Docusate Sodium (Docusate Sodium 100 Mg Capsule) 100 mg PO BID [facility] Last Admin: 05/29/21 09:56 Dose: 100 mg Documented by: Enoxaparin Sodium (Enoxaparin 40 Mg/0.4 Ml Syringe) 40 mg SQ DAILY [facility] Last Admin: 05/29/21 09:57 Dose: 40 mg Documented by: Hydromorphone HCl (Hydromorphone 0.5 Mg/0.5 Ml Syringe) 0.5 mg IV Q2HP PRN; Protocol PRN Reason: Per Pain Protocol Last Admin: 05/28/21 20:28 Dose: 0.5 mg Documented by: Lactated Ringer's (Lactated Ringers) 1,000 mls @ 100 mls/hr IV .Q10H [facility] Last Admin: 05/29/21 06:10 Dose: 100 mls/hr Documented by: Piperacillin Sod/Tazobactam (Sod 3.375 gm/ Dextrose) 50 mls @ 100 mls/hr IV Q6H [facility]; Protocol Last Infusion: 05/29/21 12:45 Dose: Infused Documented by: Lorazepam (Lorazepam 2 Mg/Ml Vial) 0.5 mg IV Q6HP PRN PRN Reason: ANXIETY/SEDATION Last Admin: 05/28/21 17:26 Dose: 0.5 mg Documented by: Ondansetron HCl (Ondansetron 4 Mg/2 Ml Vial) 4 mg IV Q6HP PRN PRN Reason: Nausea And Vomiting Last Admin: 05/29/21 05:41 Dose: 4 mg Documented by: Fluticasone- Umeclidin-Vilanter [ Trelegy Ellipta] Inhaler 1 dose INH Q24H [facility] Last Admin: 05/29/21 10:08 Dose: Not Given Documented by: Senna (Sennosides 1 Tablet) 2 tab PO HS [facility] Last Admin: 05/28/21 20:27 Dose: 2 tab Documented by: Sodium Chloride (0.9 % Sodium Chloride 10 Ml Syringe) 10 ml IV Q8 [facility] Last Admin: 05/29/21 13:37 Dose: Not Given Documented by: A/P Narrative A/P Narrative: Assessment: 81 year old female with a history of partial colectomy, hysterectomy, oxygen dependent COPD, hypertension admitted for a small bowel obstruction. #Small bowel obstruction #COPD with chronic hypoxia, stable #Essential hypertension Plan -IV fluid, analgesics prn. -Serial abdominal exams. -Replace electrolytes as needed. -Nasogastric tube placement for suctioning. -NPO until bowel function begins to recover. -On Zosyn. -DVT prophylaxis: Lovenox -Disposition: TBD, if small bowel obstruction does not resolve with conservative management will likely have to transfer to a higher level of care. Time Spent With Patient Time: Total time spent is greater than 50% in coordination of care (as documented) at patient's floor/unit and/or counseling patient: QUALITY VTE Deep Vein Thrombosis/Pulmonary Embolism Present on Admission: No
[2021-05-29] MEDS: LORazepam 2 MG/ML VIAL IV PRN (16:12)
--- NOTE | 2021-05-29 19:29 | General Surgery Progress Note ---
SUBJECTIVE Subjective Patient information: Note initiated : 05/29/21 at 1030 am Service Date, if different from initiated Date: [] Patient: Georgina Isaacs 81 y/o F admitted on 05/27/21 for Abdominal pain. Chief Complaint: [] Feels better this am, has now started to pass some gas and feels RLQ pain has largely resolved Constitutional Vitals: Vital Signs Temp Pulse Resp BP Pulse Ox 98.5 F 102 H 20 145/86 97 05/29/21 19:03 05/29/21 19:03 05/29/21 19:03 05/29/21 19:03 05/29/21 19:03 Period Temp Pulse Resp BP Sys/Helm Pulse Ox Last 24 Hr 97.6 F-98.6 F 80-102 14-20 118-145/65-90 90-100 Intake and Output 05/29/21 05/29/21 05/29/21 05:59 13:59 21:59 Intake Total 50 1650 1050 Output Total 550 250 300 Balance -500 1400 750 Weight 103 lb 4 oz Patient Weight 05/30/21 05:59 Weight 103 lb 4 oz Intake & Output: Intake & Output 05/29/21 05/29/21 05/29/21 05:59 13:59 21:59 Intake Total 50 1650 1050 Output Total 550 250 300 Balance -500 1400 750 Weight 103 lb 4 oz Intake: IV 50 1150 1050 Lactated Ringers 1,000 ml @ 100 1000 1000 mls/hr IV .Q10H [facility] Rx#: [id number] Zosyn 3.375 gm In Dextrose 5% 50 100 50 in Water 50 ml @ 100 mls/hr IV Q6H [facility] Rx#:[id number] Oral 500 Tube Feeding 0 Output: Gastric Drainage 200 150 Right Nare NG/OG 200 150 Void Amount 350 250 150 Other: Urine Appearance Clear Clear Urine Color Dark Yellow Bright Yellow Bright Yellow Urine Odor Strong Strong # Voids 1 Exam: awake and fully conversant GI/Abdominal Additional comments: remains mildly distended still but soft today and entirely non tender NGT in place and appears functional A/P Assessment and plan (1) Small bowel obstruction: Status: Acute Plan Presumed adhesion related SBO Appears to be clinically resolving Re check Abdominal plain films in the AM Continue NGT and NPO for now Time Spent With Patient Time: Total time spent is greater than 50% in coordination of care (as documented) at patient's floor/unit and/or counseling patient:
[2021-05-29] MEDS: SENNOSIDES 1 TABLET PO SCH (21:06)
[2021-05-30] MEDS: LACTATED RINGERS 1,000 ML IV SCH ×2 (05:11→15:56)
[2021-05-30] MEDS: 0.9 % SODIUM CHLORIDE 10 ML SYRINGE IV SCH ×3 (05:12→21:54)
[2021-05-30] MEDS: PIPERACILLIN SODIUM/TAZOBACTAM 3.375 GM in DEXTROSE 5% IN WATER 50 ML IV SCH ×3 (05:22→17:00)
[2021-05-30 07:34] LABS: ALT/SGPT 13 U/L (<40); AST/SGOT 25 U/L (<32); Albumin 3.6 gm/dL (3.2-5.2); Alkaline Phosphatase 53 U/L (39-117); Bilirubin,Direct < 0.2 mg/dL (0-0.3); Bilirubin,Total 0.5 mg/dL (0.1-1.0); Blood Urea Nitrogen 9 mg/dL (8-23); Carbon Dioxide 33 mmol/L (22-30); Chloride 94 mmol/L (96-108); Globulin 1.8 gm/dL (2.2-3.7); Glomerular Filtration Rate 86; Glucose 80 mg/dL (70-105); Lactate Dehydrogenase 205 U/L (135-225); Phosphorous 2.9 mg/dL (2.5-4.5); Triglycerides 89 mg/dL (<150); Uric Acid 3.6 mg/dL (2.5-8.0)
[2021-05-30] MEDS: Fluticasone-Umeclidin-Vilanter [Trelegy Ellipta] Inhaler INH SCH (08:11)
[2021-05-30] MEDS: DOCUSATE SODIUM 100 MG CAPSULE PO SCH ×2 (08:16→20:10)
[2021-05-30] MEDS: ENOXAPARIN 40 MG/0.4 ML SYRINGE SQ SCH (08:17)
--- NOTE | 2021-05-30 08:30 | XRay Report ---
INDICATION: eval SBO TECHNIQUE: Supine and upright abdomen. COMPARISON: Previous plain film examination dated 05/28/2021. Previous CT scan dated 05/27/2021 FINDINGS:No change in endotracheal tube position. Tube tip is in the stomach. There is persistent small bowel obstruction. There is gas-filled small bowel with dilatation. Cross-sectional diameter small bowel measures approximately 4.5 cm. There are associated air-fluid levels. There is no significant gas or fecal material within the colon. Bowel gas pattern is essentially stable since 05/28/2021 IMPRESSION: 1. Mechanical small bowel obstruction 2. No significant interval change since 05/28/2021 Interpreted and Authenticated by: Darell Milner 05/30/21
--- NOTE | 2021-05-30 11:11 | Internal Med Progress Note ---
SUBJECTIVE Subjective Patient information: Note initiated : 05/30/21 at 11:08 am Service Date, if different from initiated Date: [] Patient: Georgina Isaacs 81 y/o F admitted on 05/27/21 for Abdominal pain. Chief Complaint: [] Interval history: Ms. Isaacs is a 81 year old female with a history of partial colectomy, hysterectomy, oxygen dependent COPD, hypertension who presented to the emergency department for abdominal pain was found to have a small bowel obstruction on CT scan showing a transitional point in the right lower quadrant. General surgery recommended that the patient be transferred to a higher level of care, the emergency room department provider consulted with [facility] however transfer was refused at that facility. The patient did not want to transfer out of the [facility], instead wanted to try conservative management at [facility]. The concern is the patient's severe oxygen dependent COPD, if she required surgery it is unlikely we would be able to extubate the patient after surgery leading to prolonged ventilator weaning and possible requirement for tracheostomy. With the understanding that we would not provide operative intervention at [place] instead only conservative management, in keeping with the patient's wishes to remain in the [facility] medicine agreed to admit the patient for conservative management of the small bowel obstruction. 05/29 Passing gas, NG tube suctioned 200 mL, SBO likely beginning to resolve. Surgery following, on Zosyn. 05/30 Passing more gas today and no bowel movement yet. Abdominal x-ray showed mechanical small bowel obstruction, no significant interval change since 05/28/2021. Physical exam Head: Atraumatic, normal inspection. Eyes: normal appearance, no scleral icterus. Neck: full ROM Respiratory: no respiratory distress. Cardiovascular: normal rate and rhythm, S1, S2. GI/Abdominal: Nasogastric tube to suction, abdominal tenderness most pronounced in the right lower quadrant, no guarding, no rebound tenderness. Extremities: full range of motion, nontender. Neurological: CN II-XII intact, intact motor, intact sensation. Psychiatric: normal mood. Skin: warm, normal color Constitutional Vitals: Vital Signs Temp Pulse Resp BP Pulse Ox 97.6 F 90 18 138/65 100 05/30/21 08:00 05/30/21 08:00 05/30/21 08:00 05/30/21 08:00 05/30/21 08:00 Period Temp Pulse Resp BP Sys/Helm Pulse Ox Last 24 Hr 97.6 F-98.7 F 80-102 16-20 100-145/56-90 90-100 Intake and Output 05/29/21 05/30/21 05/30/21 21:59 05:59 13:59 Intake Total 1050 1200 0 Output Total 450 875 150 Balance 600 325 -150 Weight 46.833 kg Intake & Output: Intake & Output 05/29/21 05/30/21 05/30/21 21:59 05:59 13:59 Intake Total 1050 1200 0 Output Total 450 875 150 Balance 600 325 -150 Weight 46.833 kg Intake: IV 1050 1100 Lactated Ringers 1,000 ml @ 100 1000 1000 mls/hr IV .Q10H [facility] Rx#: [id number] Zosyn 3.375 gm In Dextrose 5% 50 100 in Water 50 ml @ 100 mls/hr IV Q6H [facility] Rx#:[id number] Oral 100 Tube Feeding 0 0 Output: Gastric Drainage 150 550 Right Nare NG/OG 150 550 Void Amount 300 325 150 Other: Urine Appearance Clear Clear Urine Color Dark Yellow Dark Yellow Urine Odor Strong Strong Stool Size Small Stool Color Brown Stool Consistency Soft OBJ DATA Labs CBC & Chem 7: 05/27/21 19:39 05/30/21 05:52 Labs: Abnormal Lab Results 05/30/21 05/29/21 05/28/21 05:52 05:37 05:27 MPV Neut % (Auto) Lymph % (Auto) Lymph # (Auto) Absolute Neutrophils Chloride 94 L Carbon Dioxide 33 H 32 H 32 H Anion Gap 5.0 L Creatinine 0.5 L Glucose Lactate Dehydrogenase 284 H Total Protein 5.4 L 5.8 L 5.6 L Globulin 1.8 L 1.9 L 1.9 L Urine Appearance 05/27/21 05/27/21 05/27/21 20:55 19:39 19:39 MPV 13.6 H Neut % (Auto) 82.4 H Lymph % (Auto) 10.0 L Lymph # (Auto) 1.04 L Absolute Neutrophils 8.56 H Chloride Carbon Dioxide 33 H Anion Gap 6.0 L Creatinine 0.5 L Glucose 118 H Lactate Dehydrogenase Total Protein Globulin Urine Appearance Hazy A Meds: Medications Acetaminophen (Acetaminophen 325 Mg Tablet) 650 mg PO Q6HP PRN; Protocol PRN Reason: Per Pain Protocol/Fever > 101 Hydrocodone Bitart/Acetaminophen (Hydrocodone/Apap 5/325mg Tablet) 1 tab PO Q4HP PRN; Protocol PRN Reason: Per Pain Protocol Last Admin: 05/28/21 10:36 Dose: 1 tab Documented by: Docusate Sodium (Docusate Sodium 100 Mg Capsule) 100 mg PO BID [facility] Last Admin: 05/30/21 08:16 Dose: 100 mg Documented by: Enoxaparin Sodium (Enoxaparin 40 Mg/0.4 Ml Syringe) 40 mg SQ DAILY [facility] Last Admin: 05/30/21 08:17 Dose: 40 mg Documented by: Hydromorphone HCl (Hydromorphone 0.5 Mg/0.5 Ml Syringe) 0.5 mg IV Q2HP PRN; Protocol PRN Reason: Per Pain Protocol Last Admin: 05/28/21 20:28 Dose: 0.5 mg Documented by: Lactated Ringer's (Lactated Ringers) 1,000 mls @ 100 mls/hr IV .Q10H [facility] Last Admin: 05/30/21 05:11 Dose: 100 mls/hr Documented by: Piperacillin Sod/Tazobactam (Sod 3.375 gm/ Dextrose) 50 mls @ 100 mls/hr IV Q6H [facility]; Protocol Last Infusion: 05/30/21 05:53 Dose: Infused Documented by: Lorazepam (Lorazepam 2 Mg/Ml Vial) 0.5 mg IV Q6HP PRN PRN Reason: ANXIETY/SEDATION Last Admin: 05/29/21 16:12 Dose: 0.5 mg Documented by: Ondansetron HCl (Ondansetron 4 Mg/2 Ml Vial) 4 mg IV Q6HP PRN PRN Reason: Nausea And Vomiting Last Admin: 05/29/21 05:41 Dose: 4 mg Documented by: Fluticasone- Umeclidin-Vilanter [ Trelegy Ellipta] Inhaler 1 dose INH Q24H [facility] Last Admin: 05/30/21 08:11 Dose: Not Given Documented by: Senna (Sennosides 1 Tablet) 2 tab PO HS [facility] Last Admin: 05/29/21 21:06 Dose: 2 tab Documented by: Sodium Chloride (0.9 % Sodium Chloride 10 Ml Syringe) 10 ml IV Q8 [facility] Last Admin: 05/30/21 05:12 Dose: 10 ml Documented by: A/P Narrative A/P Narrative: Assessment: 81 year old female with a history of partial colectomy, hysterectomy, oxygen dependent COPD (4 L/min nasal cannula) hypertension admitted for a small bowel obstruction. CT abdomen and pelvis showed a mechanical small bowel obstruction with a transition point in the right lower quadrant. #Small bowel obstruction #Severe with chronic hypoxia #Essential hypertension #History of left nephrectomy #History of prior partial colectomy, appendectomy, hysterectomy, oophorectomy Plan -IV fluid, analgesics prn. -Serial abdominal exams. -Replace electrolytes as needed. -Nasogastric tube placement for suctioning. -NPO until bowel function begins to recover. -On Zosyn. -General surgery following. -DVT prophylaxis: Lovenox -Disposition: TBD, if small bowel obstruction does not resolve with conservative management will likely have to transfer to a higher level of care. Time Spent With Patient Time: Total time spent is greater than 50% in coordination of care (as documented) at patient's floor/unit and/or counseling patient: QUALITY VTE Deep Vein Thrombosis/Pulmonary Embolism Present on Admission: No
--- NOTE | 2021-05-30 14:39 | Internal Med Progress Note ---
SUBJECTIVE Subjective Patient information: Note initiated : 05/30/21 at 2:36 pm Service Date, if different from initiated Date: [] Patient: Georgina Isaacs 81 y/o F admitted on 05/27/21 for Abdominal pain. Chief Complaint: [] Interval history: Ms. Isaacs is a 81 year old female with a history of partial colectomy, hysterectomy, oxygen dependent COPD, hypertension who presented to the emergency department for abdominal pain was found to have a small bowel obstruction on CT scan showing a transitional point in the right lower quadrant. General surgery recommended that the patient be transferred to a higher level of care, the emergency room department provider consulted with [facility] however transfer was refused at that facility. The patient did not want to transfer out of the [facility], instead wanted to try conservative management at [facility]. The concern is the patient's severe oxygen dependent COPD, if she required surgery it is unlikely we would be able to extubate the patient after surgery leading to prolonged ventilator weaning and possible requirement for tracheostomy. With the understanding that we would not provide operative intervention at [place] instead only conservative management, in keeping with the patient's wishes to remain in the [facility] medicine agreed to admit the patient for conservative management of the small bowel obstruction. 05/29 Passing gas, NG tube suctioned 200 mL, SBO likely beginning to resolve. Surgery following, on Zosyn. 05/30 Passing more gas today and no bowel movement yet. Abdominal x-ray showed mechanical small bowel obstruction, no significant interval change since 05/28/2021. Physical exam Head: Atraumatic, normal inspection. Eyes: normal appearance, no scleral icterus. Neck: full ROM Respiratory: no respiratory distress. Cardiovascular: normal rate and rhythm, S1, S2. GI/Abdominal: Nasogastric tube to suction, abdominal tenderness most pronounced in the right lower quadrant, no guarding, no rebound tenderness. Extremities: full range of motion, nontender. Neurological: CN II-XII intact, intact motor, intact sensation. Psychiatric: normal mood. Skin: warm, normal color Constitutional Vitals: Vital Signs Temp Pulse Resp BP Pulse Ox 98.7 F 95 H 20 147/79 98 05/30/21 12:00 05/30/21 12:00 05/30/21 12:00 05/30/21 12:05/30/21 12:00 Period Temp Pulse Resp BP Sys/Helm Pulse Ox Last 24 Hr 97.6 F-98.7 F 80-102 18-20 100-147/56-86 90-100 Intake and Output 05/30/21 05/30/21 05/30/21 05:59 13:59 21:59 Intake Total 1200 0 50 Output Total 875 300 Balance 325 -300 50 Intake & Output: Intake & Output 05/30/21 05/30/21 05/30/21 05:59 13:59 21:59 Intake Total 1200 0 50 Output Total 875 300 Balance 325 -300 50 Intake: IV 1100 50 Lactated Ringers 1,000 ml @ 100 1000 mls/hr IV .Q10H [facility] Rx#: [id number] Zosyn 3.375 gm In Dextrose 5% 100 50 in Water 50 ml @ 100 mls/hr IV Q6H [facility] Rx#:[id number] Oral 100 Tube Feeding 0 Output: Gastric Drainage 550 Right Nare NG/OG 550 Void Amount 325 300 Other: Urine Appearance Clear Urine Color Pale Urine Odor Normal Stool Size Small Stool Color Brown Stool Consistency Soft OBJ DATA Labs CBC & Chem 7: 05/27/21 19:39 05/30/21 05:52 Labs: Abnormal Lab Results 05/30/21 05/29/21 05/28/21 05:52 05:37 05:27 MPV Neut % (Auto) Lymph % (Auto) Lymph # (Auto) Absolute Neutrophils Chloride 94 L Carbon Dioxide 33 H 32 H 32 H Anion Gap 5.0 L Creatinine 0.5 L Glucose Lactate Dehydrogenase 284 H Total Protein 5.4 L 5.8 L 5.6 L Globulin 1.8 L 1.9 L 1.9 L Urine Appearance 05/27/21 05/27/21 05/27/21 20:55 19:39 19:39 MPV 13.6 H Neut % (Auto) 82.4 H Lymph % (Auto) 10.0 L Lymph # (Auto) 1.04 L Absolute Neutrophils 8.56 H Chloride Carbon Dioxide 33 H Anion Gap 6.0 L Creatinine 0.5 L Glucose 118 H Lactate Dehydrogenase Total Protein Globulin Urine Appearance Hazy A Meds: Medications Acetaminophen (Acetaminophen 325 Mg Tablet) 650 mg PO Q6HP PRN; Protocol PRN Reason: Per Pain Protocol/Fever > 101 Hydrocodone Bitart/Acetaminophen (Hydrocodone/Apap 5/325mg Tablet) 1 tab PO Q4HP PRN; Protocol PRN Reason: Per Pain Protocol Last Admin: 05/28/21 10:36 Dose: 1 tab Documented by: Docusate Sodium (Docusate Sodium 100 Mg Capsule) 100 mg PO BID [facility] Last Admin: 05/30/21 08:16 Dose: 100 mg Documented by: Enoxaparin Sodium (Enoxaparin 40 Mg/0.4 Ml Syringe) 40 mg SQ DAILY [facility] Last Admin: 05/30/21 08:17 Dose: 40 mg Documented by: Hydromorphone HCl (Hydromorphone 0.5 Mg/0.5 Ml Syringe) 0.5 mg IV Q2HP PRN; Protocol PRN Reason: Per Pain Protocol Last Admin: 05/28/21 20:28 Dose: 0.5 mg Documented by: Lactated Ringer's (Lactated Ringers) 1,000 mls @ 100 mls/hr IV .Q10H [facility] Last Admin: 05/30/21 05:11 Dose: 100 mls/hr Documented by: Piperacillin Sod/Tazobactam (Sod 3.375 gm/ Dextrose) 50 mls @ 100 mls/hr IV Q6H [facility]; Protocol Last Infusion: 05/30/21 14:21 Dose: Infused Documented by: Lorazepam (Lorazepam 2 Mg/Ml Vial) 0.5 mg IV Q6HP PRN PRN Reason: ANXIETY/SEDATION Last Admin: 05/29/21 16:12 Dose: 0.5 mg Documented by: Ondansetron HCl (Ondansetron 4 Mg/2 Ml Vial) 4 mg IV Q6HP PRN PRN Reason: Nausea And Vomiting Last Admin: 05/29/21 05:41 Dose: 4 mg Documented by: Fluticasone- Umeclidin-Vilanter [ Trelegy Ellipta] Inhaler 1 dose INH Q24H [facility] Last Admin: 05/30/21 08:11 Dose: Not Given Documented by: Senna (Sennosides 1 Tablet) 2 tab PO HS [facility] Last Admin: 05/29/21 21:06 Dose: 2 tab Documented by: Sodium Chloride (0.9 % Sodium Chloride 10 Ml Syringe) 10 ml IV Q8 [facility] Last Admin: 05/30/21 14:21 Dose: 10 ml Documented by: A/P Narrative A/P Narrative: A: #SBO: #Severe COPD with chronic hypoxia (4L@home) #HTN: #h/o left nephrectomy: #h/o partial colectomy/appendectomy/hysterectomy/oophorectomy Plan -IV fluid, analgesics prn -Serial abdominal exam -Nasogastric tube placement for suctioning. -NPO until bowel function begins to recover. -Replace electrolytes as needed -Gen surgery following -On Zosyn per surgery. -DVT prophylaxis: Lovenox Time Spent With Patient Time: Total time spent is greater than 50% in coordination of care (as documented) at patient's floor/unit and/or counseling patient: QUALITY VTE Deep Vein Thrombosis/Pulmonary Embolism Present on Admission: No
--- NOTE | 2021-05-30 20:04 | General Surgery Progress Note ---
SUBJECTIVE Subjective Patient information: Note initiated : 05/30/21 at 7:51 pm Service Date, if different from initiated Date: [] Patient: Georgina Isaacs 81 y/o F admitted on 05/27/21 for Abdominal pain. Chief Complaint: [Abdominal Pain] Continues to feel like she has improved, has had several small stools per her history with some flatus. Abdominal x rays this am continue to show evidence of SBO Principal diagnosis: SBO Constitutional Vitals: Vital Signs Temp Pulse Resp BP Pulse Ox 98.9 F 89 16 133/76 96 05/30/21 16:00 05/30/21 16:00 05/30/21 16:00 05/30/21 16:00 05/30/21 16:00 Period Temp Pulse Resp BP Sys/Helm Pulse Ox Last 24 Hr 97.6 F-98.9 F 89-99 16-20 100-147/56-79 96-100 Intake and Output 05/30/21 05/30/21 05/30/21 05:59 13:59 21:59 Intake Total 1200 0 1200 Output Total 875 300 650 Balance 325 -300 550 Intake & Output: Intake & Output 05/30/21 05/30/21 05/30/21 05:59 13:59 21:59 Intake Total 1200 0 1200 Output Total 875 300 650 Balance 325 -300 550 Intake: IV 1100 1100 Lactated Ringers 1,000 ml @ 100 1000 1000 mls/hr IV .Q10H [facility] Rx#: [id number] Zosyn 3.375 gm In Dextrose 5% 100 100 in Water 50 ml @ 100 mls/hr IV Q6H [facility] Rx#:[id number] Oral 100 100 Tube Feeding 0 Output: Gastric Drainage 550 550 Right Nare NG/OG 550 550 Void Amount 325 300 100 Other: Urine Appearance Clear Clear Urine Color Pale Bright Yellow Urine Odor Normal Normal Stool Size Small Small Stool Color Brown Brown Stool Consistency Soft Soft Formed Formed # Bowel Movements 1 Exam: conversant, non toxic, NAD GI/Abdominal Additional comments: soft and minimally tender, distension remains, NGT non functional - irrigated and flushed, returned to function A/P Assessment and plan (1) Small bowel obstruction: Assessment and plan: Despite the improvement she's had, radiographic evidence of obstruction remains If she hasn't resolved in the next few days then in all likelihood operative intervention will be required to resolve this Small Bowel Follow Through has the potential to be therapeutic and so if she's not substantially improved in 48 hours or so, then will proceed with SBFT and if obstruction remains evident on that study, then would recommend operative intervention ? PICC Line TPN Status: Acute Time Spent With Patient Time: Total time spent is greater than 50% in coordination of care (as documented) at patient's floor/unit and/or counseling patient:
[2021-05-30] MEDS: SENNOSIDES 1 TABLET PO SCH (20:10)
[2021-05-30] MEDS: LORazepam 2 MG/ML VIAL IV PRN (21:53)
[2021-05-31] MEDS: PIPERACILLIN SODIUM/TAZOBACTAM 3.375 GM in DEXTROSE 5% IN WATER 50 ML IV SCH ×5 (00:02→23:48)
[2021-05-31] MEDS: LACTATED RINGERS 1,000 ML IV SCH ×3 (02:11→17:45)
[2021-05-31] MEDS: 0.9 % SODIUM CHLORIDE 10 ML SYRINGE IV SCH ×3 (04:21→22:35)
[2021-05-31 07:12] LABS: Basophils # (Auto) 0.02 K/mcL (0.00-0.30); Basophils % (Auto) 0.2 % (0.0-2.0); Eosinophils # (Auto) 0.28 K/mcL (0.00-0.70); Eosinophils % (Auto) 3.5 % (0.0-7.0); Hematocrit 36.1 % (34.1-44.9); Hemoglobin 11.9 g/dL (11.2-15.7); Lymphocytes # (Auto) 0.94 K/mcL (1.50-4.80); Lymphocytes % (Auto) 11.7 % (15.5-49.0); Mean Cell Volume 95.8 fL (80.0-100.0); Mean Platelet Volume 12.8 fL (7.4-10.4); Neutrophils % (Auto) 74.6 % (38.0-78.0); Platelet Count 132 K/mcL (140-440); RBC 3.77 M/mcL (3.59-5.38); Red Cell Distribution Width 12.5 % (11.5-14.5)
[2021-05-31 07:40] LABS: ALT/SGPT 15 U/L (<40); AST/SGOT 31 U/L (<32); Albumin 3.6 gm/dL (3.2-5.2); Alkaline Phosphatase 50 U/L (39-117); Bilirubin,Direct < 0.2 mg/dL (0-0.3); Bilirubin,Total 0.6 mg/dL (0.1-1.0); Blood Urea Nitrogen 10 mg/dL (8-23); Calcium 8.9 mg/dL (8.6-10.4); Carbon Dioxide 36 mmol/L (22-30); Chloride 94 mmol/L (96-108); Globulin 1.8 gm/dL (2.2-3.7); Glomerular Filtration Rate 86; Glucose 63 mg/dL (70-105); Lactate Dehydrogenase 225 U/L (135-225); Phosphorous 2.7 mg/dL (2.5-4.5); Triglycerides 85 mg/dL (<150); Uric Acid 4.2 mg/dL (2.5-8.0)
--- NOTE | 2021-05-31 08:38 | Internal Med Progress Note ---
SUBJECTIVE Subjective Patient information: Note initiated : 05/31/21 at 8:36 am Service Date, if different from initiated Date: [] Patient: Georgina Isaacs 81 y/o F admitted on 05/27/21 for Abdominal pain. Chief Complaint: [] Principal diagnosis: SBO Interval history: Ms. Isaacs is a 81 year old female with a history of partial colectomy, hysterectomy, oxygen dependent COPD, hypertension who presented to the emergency department for abdominal pain was found to have a small bowel obstruction on CT scan showing a transitional point in the right lower quadrant. General surgery recommended that the patient be transferred to a higher level of care, the emergency room department provider consulted with [facility] however transfer was refused at that facility. The patient did not want to transfer out of the [facility], instead wanted to try conservative management at [facility]. The concern is the patient's severe oxygen dependent COPD, if she required surgery it is unlikely we would be able to extubate the patient after surgery leading to prolonged ventilator weaning and possible requirement for tracheostomy. With the understanding that we would not provide operative intervention at [place] instead only conservative management, in keeping with the patient's wishes to remain in the [facility] medicine agreed to admit the patient for conservative management of the small bowel obstruction. 05/29 Passing gas, NG tube suctioned 200 mL, SBO likely beginning to resolve. Surgery following, on Zosyn. 05/30 Passing more gas today and no bowel movement yet. Abdominal x-ray showed mechanical small bowel obstruction, no significant interval change since 05/28/2021. 05/31 Yesterday abdominal x-ray no improvement. Patient did states she had a BM this morning. NG tube in place with significant output. Small bowel follow-through pending Review of Systems: denies headache/fever/chills/nausea/vomiting/chest or abdominal pain/cough/dyspnea/diarrhea. Otherwise see above. Constitutional Vitals: Vital Signs Temp Pulse Resp BP Pulse Ox 98.2 F 82 15 139/72 94 05/31/21 07:39 05/31/21 07:39 05/31/21 07:39 05/31/21 07:39 05/31/21 07:39 Period Temp Pulse Resp BP Sys/Helm Pulse Ox Last 24 Hr 97.2 F-98.9 F 82-95 15-22 132-150/72-92 94-98 Intake and Output 05/30/21 05/31/21 05/31/21 21:59 05:59 13:59 Intake Total 1200 1170 Output Total 1100 900 175 Balance 100 270 -175 Weight 48.081 kg Intake & Output: Intake & Output 05/30/21 05/31/21 05/31/21 21:59 05:59 13:59 Intake Total 1200 1170 Output Total 1100 900 175 Balance 100 270 -175 Weight 48.081 kg Intake: IV 1100 1050 Lactated Ringers 1,000 ml @ 100 1000 1000 mls/hr IV .Q10H [facility] Rx#: [id number] Zosyn 3.375 gm In Dextrose 5% 100 50 in Water 50 ml @ 100 mls/hr IV Q6H [facility] Rx#:[id number] Oral 100 120 Tube Feeding 0 0 Output: Gastric Drainage 1000 500 Right Nare NG/OG 1000 500 Void Amount 100 400 Urine/Stool Mix 175 Other: Urine Appearance Clear Clear Clear Urine Color Bright Yellow Bright Yellow Bright Yellow Urine Odor Normal Normal Normal Stool Size Small Small Small Stool Color Brown Brown Brown Stool Consistency Soft Soft Loose Formed Formed # Bowel Movements 1 1 Exam: General: Alert, Awake, No acute Distress Eyes/N/T: EOMI, PERRL, MM Head/Neck: neck supple, normocephalic atraumatic CV: RRR, No murmurs, normal s1/s2 Pulm: Clear b/l, no wheezing/rhonchi/rales Abd: soft, mild tenderness, +BS x4, NG tube in place Ext: no clubbing/cyanosis/edema Neuro: Alert, no focal deficits, moves all extremities, Skin: warm/dry OBJ DATA Labs CBC & Chem 7: 05/31/21 05:16 05/31/21 05:16 Labs: Abnormal Lab Results 05/31/21 05/31/21 05/30/21 05:16 05:16 05:52 Plt Count 132 L MPV 12.8 H Lymph % (Auto) 11.7 L Lymph # (Auto) 0.94 L Potassium 3.1 L Chloride 94 L 94 L Carbon Dioxide 36 H 33 H Glucose 63 L Total Protein 5.4 L 5.4 L Globulin 1.8 L 1.8 L 05/29/21 05:37 Plt Count MPV Lymph % (Auto) Lymph # (Auto) Potassium Chloride Carbon Dioxide 32 H Glucose Total Protein 5.8 L Globulin 1.9 L Meds: Medications Acetaminophen (Acetaminophen 325 Mg Tablet) 650 mg PO Q6HP PRN; Protocol PRN Reason: Per Pain Protocol/Fever > 101 Hydrocodone Bitart/Acetaminophen (Hydrocodone/Apap 5/325mg Tablet) 1 tab PO Q4HP PRN; Protocol PRN Reason: Per Pain Protocol Last Admin: 05/28/21 10:36 Dose: 1 tab Documented by: Docusate Sodium (Docusate Sodium 100 Mg Capsule) 100 mg PO BID [facility] Last Admin: 05/30/21 20:10 Dose: 100 mg Documented by: Enoxaparin Sodium (Enoxaparin 40 Mg/0.4 Ml Syringe) 40 mg SQ DAILY [facility] Last Admin: 05/30/21 08:17 Dose: 40 mg Documented by: Hydromorphone HCl (Hydromorphone 0.5 Mg/0.5 Ml Syringe) 0.5 mg IV Q2HP PRN; Protocol PRN Reason: Per Pain Protocol Last Admin: 05/28/21 20:28 Dose: 0.5 mg Documented by: Lactated Ringer's (Lactated Ringers) 1,000 mls @ 100 mls/hr IV .Q10H [facility] Last Admin: 05/31/21 02:11 Dose: 100 mls/hr Documented by: Piperacillin Sod/Tazobactam (Sod 3.375 gm/ Dextrose) 50 mls @ 100 mls/hr IV Q6H [facility]; Protocol Last Admin: 05/31/21 06:02 Dose: 100 mls/hr Documented by: Lorazepam (Lorazepam 2 Mg/Ml Vial) 0.5 mg IV Q6HP PRN PRN Reason: ANXIETY/SEDATION Last Admin: 05/30/21 21:53 Dose: 0.5 mg Documented by: Ondansetron HCl (Ondansetron 4 Mg/2 Ml Vial) 4 mg IV Q6HP PRN PRN Reason: Nausea And Vomiting Last Admin: 05/29/21 05:41 Dose: 4 mg Documented by: Fluticasone- Umeclidin-Vilanter [ Trelegy Ellipta] Inhaler 1 dose INH Q24H [facility] Last Admin: 05/30/21 08:11 Dose: Not Given Documented by: Senna (Sennosides 1 Tablet) 2 tab PO HS [facility] Last Admin: 05/30/21 20:10 Dose: 2 tab Documented by: Sodium Chloride (0.9 % Sodium Chloride 10 Ml Syringe) 10 ml IV Q8 [facility] Last Admin: 05/31/21 04:21 Dose: 10 ml Documented by: A/P Narrative A/P Narrative: A: #SBO: #Severe COPD with chronic hypoxia (4L@home) #HTN: #h/o left nephrectomy: #h/o partial colectomy/appendectomy/hysterectomy/oophorectomy Plan -IV fluid, analgesics prn -f/u bowel imaging today -Nasogastric tube -NPO until bowel function begins to recover -Replace electrolytes as needed -Gen surgery following -On Zosyn per surgery -ppx: Lovenox Time Spent With Patient Time: Total time spent is greater than 50% in coordination of care (as documented) at patient's floor/unit and/or counseling patient: Total time spent with greater than 50% in coordination of care (as documented) at patient's floor/unit and/or counseling patient:: 25 - 35 minutes QUALITY VTE Deep Vein Thrombosis/Pulmonary Embolism Present on Admission: No
--- NOTE | 2021-05-31 10:04 | General Surgery Progress Note ---
SUBJECTIVE Subjective Patient information: Note initiated : 05/31/21 at 9:59 am Service Date, if different from initiated Date: [] Patient: Georgina Isaacs 81 y/o F admitted on 05/27/21 for Abdominal pain. Chief Complaint: [] Has continued to feel better with improved NGT function yesterday, some small stools, minimal pain SBFT has been ordered and is ongoing now Principal diagnosis: SBO Constitutional Vitals: Vital Signs Temp Pulse Resp BP Pulse Ox 98.2 F 82 15 139/72 94 05/31/21 07:39 05/31/21 07:39 05/31/21 07:39 05/31/21 07:39 05/31/21 07:39 Period Temp Pulse Resp BP Sys/Helm Pulse Ox Last 24 Hr 97.2 F-98.9 F 82-95 - 132-150/72-92 94-98 Intake and Output 05/30/21 05/31/21 05/31/21 21:59 05:59 13:59 Intake Total 1200 1170 Output Total 1100 900 325 Balance 100 270 -325 Weight 106 lb Intake & Output: Intake & Output 05/30/21 05/31/21 05/31/21 21:59 05:59 13:59 Intake Total 1200 1170 Output Total 1100 900 325 Balance 100 270 -325 Weight 106 lb Intake: IV 1100 1050 Lactated Ringers 1,000 ml @ 100 1000 1000 mls/hr IV .Q10H [facility] Rx#: [id number] Zosyn 3.375 gm In Dextrose 5% 100 50 in Water 50 ml @ 100 mls/hr IV Q6H [facility] Rx#:[id number] Oral 100 120 Tube Feeding 0 0 Output: Gastric Drainage 1000 500 Right Nare NG/OG 1000 500 Void Amount 100 400 150 Urine/Stool Mix 175 Other: Urine Appearance Clear Clear Clear Urine Color Bright Yellow Bright Yellow Bright Yellow Urine Odor Normal Normal Normal Stool Size Small Small Small Stool Color Brown Brown Brown Stool Consistency Soft Soft Soft Formed Formed Formed # Bowel Movements 1 1 Exam: she looks well and non toxic GI/Abdominal Additional comments: belly seems non tender, NGT capped for study, some distension remains A/P Assessment and plan (1) Small bowel obstruction: Assessment and plan: Presumed adhesion related SBO Some improvement over the past few days but not full resolution Small Bowel Follow Through is ongoing now If SBFT shows obstruction then will likely require exploration at some point - we're happy to perform that here if her Medical Team feels they can manage her pulmonary needs post operatively but if not then transfer to higher level of care would be needed Status: Acute Time Spent With Patient Time: Total time spent is greater than 50% in coordination of care (as documented) at patient's floor/unit and/or counseling patient:
[2021-05-31] MEDS: ONDANSETRON 4 MG/2 ML VIAL IV PRN (10:41)
[2021-05-31] MEDS: ENOXAPARIN 40 MG/0.4 ML SYRINGE SQ SCH (11:48)
[2021-05-31] MEDS: DOCUSATE SODIUM 100 MG CAPSULE PO SCH ×2 (11:49→22:35)
[2021-05-31] MEDS: Fluticasone-Umeclidin-Vilanter [Trelegy Ellipta] Inhaler INH SCH (11:49)
[2021-05-31] MEDS ORDERED: POTASSIUM CHLORIDE 20 MEQ in DEXTROSE 5% IN WATER 250 ML IV ONE (12:00)
--- NOTE | 2021-05-31 20:08 | XRay Report ---
INDICATION: ?obstruction, transition point TECHNIQUE: Small bowel study was performed with water-soluble contrast material. Contrast material was injected through this patient's esophagogastric tube. Serial imaging through 11 hours post ingestion performed. Patient had significant vomiting and the nasogastric tube was placed to suction. COMPARISON: Previous CT scan dated 05/27/2021. Previous plain film examinations dated 05/28/2021, 05/30/2021 FINDINGS: High-grade mechanical small bowel obstruction. Contrast material passes to the right side of the abdomen at the transition point identified on previous CT scan. There is no colonic contrast material while 11 hours post ingestion. Contrast material has dissipated and examination is terminated at this time IMPRESSION: 1. High-grade mechanical small bowel obstruction with small bowel visualized to the right side of the abdomen the right lower quadrant 2. No contrast material within colon by 11 hours post ingestion Interpreted and Authenticated by: Darell Milner 05/31/21
[2021-05-31] MEDS: SENNOSIDES 1 TABLET PO SCH (22:39)
[2021-06-01] MEDS: LORazepam 2 MG/ML VIAL IV PRN ×2 (00:30→20:54)
[2021-06-01] MEDS: LACTATED RINGERS 1,000 ML IV SCH ×3 (03:54→15:30)
[2021-06-01] MEDS: 0.9 % SODIUM CHLORIDE 10 ML SYRINGE IV SCH ×4 (05:09→20:47)
[2021-06-01] MEDS: ACETAMINOPHEN 325 MG TABLET PO PRN (05:13)
[2021-06-01] MEDS: PIPERACILLIN SODIUM/TAZOBACTAM 3.375 GM in DEXTROSE 5% IN WATER 50 ML IV SCH ×3 (06:05→18:34)
--- NOTE | 2021-06-01 08:17 | Internal Med Progress Note ---
SUBJECTIVE Subjective Patient information: Note initiated : 06/01/21 at 8:15 am Service Date, if different from initiated Date: [] Patient: Georgina Isaacs 81 y/o F admitted on 05/27/21 for Abdominal pain. Chief Complaint: [] Principal diagnosis: SBO Interval history: Ms. Isaacs is a 81 year old female with a history of partial colectomy, hysterectomy, oxygen dependent COPD, hypertension who presented to the emergency department for abdominal pain was found to have a small bowel obstruction on CT scan showing a transitional point in the right lower quadrant. General surgery recommended that the patient be transferred to a higher level of care, the emergency room department provider consulted with [facility] however transfer was refused at that facility. The patient did not want to transfer out of the [facility], instead wanted to try conservative management at [facility]. The concern is the patient's severe oxygen dependent COPD, if she required surgery it is unlikely we would be able to extubate the patient after surgery leading to prolonged ventilator weaning and possible requirement for tracheostomy. With the understanding that we would not provide operative intervention at [facility] instead only conservative management, in keeping with the patient's wishes to remain in the [facility] medicine agreed to admit the patient for conservative management of the small bowel obstruction. 05/29 Passing gas, NG tube suctioned 200 mL, SBO likely beginning to resolve. Surgery following, on Zosyn. 05/30 Passing more gas today and no bowel movement yet. Abdominal x-ray showed mechanical small bowel obstruction, no significant interval change since 05/28/2021. 05/31 Yesterday abdominal x-ray no improvement. Patient did states she had a BM this morning. NG tube in place with significant output. Small bowel follow-through pending 06/01 Patient states she is feeling okay this morning. No worse. She says she had a small bowel movement last night but per nursing note there is no bowel movements. Small bowel follow-through showed high-grade small bowel obstruction. Will await plan once surgery discussion with patient family. Review of Systems: denies headache/fever/chills/nausea/vomiting/chest or abdominal pain/cough/dyspnea/diarrhea. Otherwise see above. Constitutional Vitals: Vital Signs Temp Pulse Resp BP Pulse Ox 97.2 F 101 H 18 144/91 99 06/01/21 07:50 06/01/21 07:50 06/01/21 07:50 06/01/21 07:50 06/01/21 07:50 Period Temp Pulse Resp BP Sys/Helm Pulse Ox Last 24 Hr 97.2 F-99.8 F 92-105 16-20 138-174/75-99 93-99 Intake and Output 05/31/21 06/01/21 06/01/21 21:59 05:59 13:59 Intake Total 1510 50 50 Output Total 125 675 Balance 1385 -625 50 Weight 44.679 kg Intake & Output: Intake & Output 05/31/21 06/01/21 06/01/21 21:59 05:59 13:59 Intake Total 1510 50 50 Output Total 125 675 Balance 1385 -625 50 Weight 44.679 kg Intake: IV 1310 50 50 Lactated Ringers 1,000 ml @ 100 1000 mls/hr IV .Q10H [facility] Rx#: [id number] Zosyn 3.375 gm In Dextrose 5% 50 50 50 in Water 50 ml @ 100 mls/hr IV Q6H [facility] Rx#:[id number] Potassium Chloride 20 Meq In 260 Dextrose 5% in Water 250 ml @ 130 mls/hr IV ONCE ONE Rx#: [id number] Oral 200 0 Tube Feeding 0 Output: Gastric Drainage 400 Right Nare NG/OG 400 Void Amount 125 275 Other: Urine Appearance Clear Clear Urine Color Bright Yellow Dark Yellow Urine Odor Normal Exam: General: Alert, Awake, No acute Distress Eyes/N/T: EOMI, Head/Neck: neck supple, normocephalic atraumatic CV: RRR, No murmurs, normal s1/s2 Pulm: Clear b/l, no wheezing/rhonchi/rales Abd: soft, mild tenderness, +BS x4, NG tube in place Ext: no clubbing/cyanosis/edema Neuro: Alert, no focal deficits, moves all extremities, Skin: warm/dry OBJ DATA Labs CBC & Chem 7: 05/31/21 05:16 05/31/21 05:16 Labs: Abnormal Lab Results 05/31/21 05/31/21 05/30/21 05:16 05:16 05:52 Plt Count 132 L MPV 12.8 H Lymph % (Auto) 11.7 L Lymph # (Auto) 0.94 L Potassium 3.1 L Chloride 94 L 94 L Carbon Dioxide 36 H 33 H Glucose 63 L Total Protein 5.4 L 5.4 L Globulin 1.8 L 1.8 L Meds: Medications Acetaminophen (Acetaminophen 325 Mg Tablet) 650 mg PO Q6HP PRN; Protocol PRN Reason: Per Pain Protocol/Fever > 101 Last Admin: 06/01/21 05:13 Dose: 650 mg Documented by: Hydrocodone Bitart/Acetaminophen (Hydrocodone/Apap 5/325mg Tablet) 1 tab PO Q4HP PRN; Protocol PRN Reason: Per Pain Protocol Last Admin: 05/28/21 10:36 Dose: 1 tab Documented by: Docusate Sodium (Docusate Sodium 100 Mg Capsule) 100 mg PO BID [facility] Last Admin: 05/31/21 22:35 Dose: 100 mg Documented by: Enoxaparin Sodium (Enoxaparin 40 Mg/0.4 Ml Syringe) 40 mg SQ DAILY [facility] Last Admin: 05/31/21 11:48 Dose: 40 mg Documented by: Hydromorphone HCl (Hydromorphone 0.5 Mg/0.5 Ml Syringe) 0.5 mg IV Q2HP PRN; Protocol PRN Reason: Per Pain Protocol Last Admin: 05/28/21 20:28 Dose: 0.5 mg Documented by: Piperacillin Sod/Tazobactam (Sod 3.375 gm/ Dextrose) 50 mls @ 100 mls/hr IV Q6H [facility]; Protocol Last Infusion: 06/01/21 06:35 Dose: Infused Documented by: Lactated Ringer's (Lactated Ringers) 1,000 mls @ 70 mls/hr IV .[id number] [facility] Last Admin: 06/01/21 03:54 Dose: Not Given Documented by: Lorazepam (Lorazepam 2 Mg/Ml Vial) 0.5 mg IV Q6HP PRN PRN Reason: ANXIETY/SEDATION Last Admin: 06/01/21 00:30 Dose: 0.5 mg Documented by: Ondansetron HCl (Ondansetron 4 Mg/2 Ml Vial) 4 mg IV Q6HP PRN PRN Reason: Nausea And Vomiting Last Admin: 05/31/21 10:41 Dose: 4 mg Documented by: Fluticasone- Umeclidin-Vilanter [ Trelegy Ellipta] Inhaler 1 dose INH Q24H [facility] Last Admin: 05/31/21 11:49 Dose: Not Given Documented by: Senna (Sennosides 1 Tablet) 2 tab PO HS [facility] Last Admin: 05/31/21 22:39 Dose: 2 tab Documented by: Sodium Chloride (0.9 % Sodium Chloride 10 Ml Syringe) 10 ml IV Q8 [facility] Last Admin: 06/01/21 05:09 Dose: Not Given Documented by: A/P Narrative A/P Narrative: A: #SBO: not improving to any significant degree #Severe COPD with chronic hypoxia (4L@home) #HTN: #h/o left nephrectomy: #h/o partial colectomy/appendectomy/hysterectomy/oophorectomy Plan: -IV fluid, analgesics prn -Nasogastric tube -NPO -plan to be decided once surgery talks to pt/family -Replace electrolytes as needed -Gen surgery following -On Zosyn per surgery -ppx: Lovenox Time Spent With Patient Time: Total time spent is greater than 50% in coordination of care (as documented) at patient's floor/unit and/or counseling patient: Total time spent with greater than 50% in coordination of care (as documented) at patient's floor/unit and/or counseling patient:: 25 - 35 minutes QUALITY VTE Deep Vein Thrombosis/Pulmonary Embolism Present on Admission: No
[2021-06-01] MEDS: ENOXAPARIN 40 MG/0.4 ML SYRINGE SQ SCH (08:26)
[2021-06-01] MEDS: DOCUSATE SODIUM 100 MG CAPSULE PO SCH ×2 (08:41→20:43)
[2021-06-01] MEDS: Fluticasone-Umeclidin-Vilanter [Trelegy Ellipta] Inhaler INH SCH (10:18)
--- NOTE | 2021-06-01 13:04 | XRay Report ---
INDICATION: NG placement TECHNIQUE: Supine abdomen. COMPARISON: Previous examinations dated 05/31/2021, 05/30/2021, 05/28/2021 FINDINGS:Esophagogastric tube within the stomach. The tip is kinked and deflected cephalad. Apparently there is reduced output. Tube should be straightened. Bowel gas pattern is abnormal. There is persisting gas-filled small bowel, unchanged IMPRESSION: Abnormal esophagogastric tube position as above Interpreted and Authenticated by: Darell Milner 06/01/21
--- NOTE | 2021-06-01 13:05 | General Surgery Progress Note ---
SUBJECTIVE Subjective Patient information: Note initiated : 06/01/21 at 1:00 pm Service Date, if different from initiated Date: [] Patient: Georgina Isaacs 81 y/o F admitted on 05/27/21 for Abdominal pain. Chief Complaint: [SBO] SBFT yesterday demonstrated ongoing obstruction. Passed a small amount of gas late last night and possibly this am. Feels very well, has no abdominal pain at this time. NGT in place. Family at bedside Principal diagnosis: SBO Constitutional Vitals: Vital Signs Temp Pulse Resp BP Pulse Ox 97.7 F 91 H 18 154/84 98 06/01/21 12:00 06/01/21 12:00 06/01/21 12:00 06/01/21 12:00 06/01/21 12:00 Period Temp Pulse Resp BP Sys/Helm Pulse Ox Last 24 Hr 97.2 F-99.8 F 91-105 18-20 140-174/78-99 93-99 Intake and Output 05/31/21 06/01/21 06/01/21 21:59 05:59 13:59 Intake Total 1510 1050 50 Output Total 125 675 Balance 1385 375 50 Weight 98 lb 8 oz Intake & Output: Intake & Output 05/31/21 06/01/21 06/01/21 21:59 05:59 13:59 Intake Total 1510 1050 50 Output Total 125 675 Balance 1385 375 50 Weight 98 lb 8 oz Intake: IV 1310 1050 50 Lactated Ringers 1,000 ml @ 70 1000 1000 mls/hr IV .[id number] [facility] Rx#: [id number] Zosyn 3.375 gm In Dextrose 5% 50 50 50 in Water 50 ml @ 100 mls/hr IV Q6H [facility] Rx#:[id number] Potassium Chloride 20 Meq In 260 Dextrose 5% in Water 250 ml @ 130 mls/hr IV ONCE ONE Rx#: [id number] Oral 200 0 Tube Feeding 0 0 Output: Gastric Drainage 400 Right Nare NG/OG 400 Void Amount 125 275 Other: Urine Appearance Clear Clear Urine Color Bright Yellow Dark Yellow Urine Odor Normal Exam: Looks well, non toxic, fully conversant GI/Abdominal Additional comments: belly does seem far softer and less distended than before and is non tender to exam NGT flushed at bedside A/P Narrative A/P Narrative: SBO presumed adhesion related Despite SBFT yesterday, does seem improved today Will check KUB for progression and for NGT position Options reviewed with patient and family. She would like to hold off on surgery for longer yet in hopes this will resolve of its own accord. My contact info is provided and all questions and concerns discussed and reviewed Time Spent With Patient Time: Total time spent is greater than 50% in coordination of care (as documented) at patient's floor/unit and/or counseling patient:
[2021-06-01] MEDS ORDERED: 0.9 % SODIUM CHLORIDE 10 ML SYRINGE IV PRN (13:46)
--- NOTE | 2021-06-01 15:20 | XRay Report ---
INDICATION: NG confirmtion TECHNIQUE: Supine abdomen. COMPARISON: Previous examination dated 06/01/2021 FINDINGS:No change in position of the esophagogastric tube. This catheter remains kinked with its tip directed cephalad. IMPRESSION: No change in position of the esophagogastric tube 06/01/2021 at 1237 Interpreted and Authenticated by: Darell Milner 06/01/21
--- NOTE | 2021-06-01 16:48 | XRay Report ---
INDICATION: PICC PLACEMENT TECHNIQUE: AP portable semiupright chest x-ray COMPARISON: None FINDINGS: Left-sided PICC line with its tip at the junction of the brachiocephalic vein and superior vena cava. There is an esophagogastric tube with its tip off the plane of this film. The sidehole of the nasogastric tube is at the level of the gastroesophageal junction IMPRESSION: Left-sided PICC line with its tip at the junction of the brachiocephalic vein and superior vena cava Interpreted and Authenticated by: Darell Milner 06/01/21
--- NOTE | 2021-06-01 17:05 | XRay Report ---
INDICATION: NG placement TECHNIQUE: Supine abdomen. COMPARISON: Previous examination dated 06/01/2021 FINDINGS:There is an esophagogastric tube with its tip in the gastric fundus. The sidehole of the catheter is at approximately the gastroesophageal junction Bowel gas pattern remains abnormal consistent with mechanical small bowel obstruction IMPRESSION: Esophagogastric tube as above Interpreted and Authenticated by: Darell Milner 06/01/21
[2021-06-01 18:14] LABS: ALT/SGPT 23 U/L (<40); AST/SGOT 42 U/L (<32); Albumin 3.7 gm/dL (3.2-5.2); Albumin/Globulin Ratio 1.9 (1.0-2.3); Alkaline Phosphatase 47 U/L (39-117); Bilirubin,Direct < 0.2 mg/dL (0-0.3); Bilirubin,Total 0.5 mg/dL (0.1-1.0); Blood Urea Nitrogen 9 mg/dL (8-23); Calcium 8.8 mg/dL (8.6-10.4); Carbon Dioxide 36 mmol/L (22-30); Chloride 90 mmol/L (96-108); Glomerular Filtration Rate 91; Glucose 69 mg/dL (70-105); Lactate Dehydrogenase 294 U/L (135-225); Phosphorous 2.7 mg/dL (2.5-4.5); Triglycerides 100 mg/dL (<150); Uric Acid 4.7 mg/dL (2.5-8.0)
[2021-06-01 18:16] LABS: Prealbumin 11.4 mg/dL (20.0-40.0)
[2021-06-01] MEDS ORDERED: POTASSIUM CHLORIDE 40 MEQ in DEXTROSE 5% IN WATER 500 ML IV ONE (18:46)
[2021-06-01] MEDS ORDERED: POTASSIUM CHLORIDE 20 MEQ in DEXTROSE 5% IN WATER 250 ML IV ONE (18:48)
[2021-06-01] MEDS ORDERED: POTASSIUM CHLORIDE 20 MEQ/10 ML VIAL IV ONE (20:19)
[2021-06-01] MEDS: SENNOSIDES 1 TABLET PO SCH (20:42)
[2021-06-01] MEDS: DEXTROSE 5%-1/2NS W/20MEQ KCL 1,000 ML IV SCH (23:04)
[2021-06-02] MEDS: PIPERACILLIN SODIUM/TAZOBACTAM 3.375 GM in DEXTROSE 5% IN WATER 50 ML IV SCH ×5 (00:38→22:55)
[2021-06-02] MEDS: ACETAMINOPHEN 325 MG TABLET PO PRN (05:39)
[2021-06-02] MEDS: 0.9 % SODIUM CHLORIDE 10 ML SYRINGE IV SCH ×5 (05:41→20:08)
[2021-06-02 06:38] LABS: Basophils # (Auto) 0.02 K/mcL (0.00-0.30); Basophils % (Auto) 0.2 % (0.0-2.0); Eosinophils # (Auto) 0.53 K/mcL (0.00-0.70); Eosinophils % (Auto) 6.1 % (0.0-7.0); Hematocrit 35.3 % (34.1-44.9); Hemoglobin 11.6 g/dL (11.2-15.7); Lymphocytes # (Auto) 0.59 K/mcL (1.50-4.80); Lymphocytes % (Auto) 6.7 % (15.5-49.0); Mean Cell Volume 97.5 fL (80.0-100.0); Mean Corpuscular HGB Conc 32.9 g/dL (31.0-36.0); Mean Platelet Volume 12.9 fL (7.4-10.4); Platelet Count 120 K/mcL (140-440); RBC 3.62 M/mcL (3.59-5.38); Red Cell Distribution Width 12.5 % (11.5-14.5); WBC 8.8 K/mcL (4.5-11.0)
[2021-06-02 06:52] LABS: ALT/SGPT 23 U/L (<40); AST/SGOT 39 U/L (<32); Albumin 3.6 gm/dL (3.2-5.2); Albumin/Globulin Ratio 2.1 (1.0-2.3); Alkaline Phosphatase 44 U/L (39-117); Bilirubin,Direct < 0.2 mg/dL (0-0.3); Bilirubin,Total 0.5 mg/dL (0.1-1.0); Blood Urea Nitrogen 8 mg/dL (8-23); Calcium 8.6 mg/dL (8.6-10.4); Carbon Dioxide 40 mmol/L (22-30); Chloride 93 mmol/L (96-108); Globulin 1.7 gm/dL (2.2-3.7); Glomerular Filtration Rate 91; Glucose 101 mg/dL (70-105); Lactate Dehydrogenase 261 U/L (135-225); Phosphorous 2.4 mg/dL (2.5-4.5); Triglycerides 96 mg/dL (<150); Uric Acid 4.3 mg/dL (2.5-8.0)
--- NOTE | 2021-06-02 08:11 | Internal Med Progress Note ---
SUBJECTIVE Subjective Patient information: Note initiated : 06/02/21 at 8:09 am Service Date, if different from initiated Date: [] Patient: Georgina Isaacs 81 y/o F admitted on 05/27/21 for Abdominal pain. Chief Complaint: [] Principal diagnosis: SBO Interval history: Ms. Isaacs is a 81 year old female with a history of partial colectomy, hysterectomy, oxygen dependent COPD, hypertension who presented to the emergency department for abdominal pain was found to have a small bowel obstruction on CT scan showing a transitional point in the right lower quadrant. General surgery recommended that the patient be transferred to a higher level of care, the emergency room department provider consulted with [facility] however transfer was refused at that facility. The patient did not want to transfer out of the [facility], instead wanted to try conservative management at [facility]. The concern is the patient's severe oxygen dependent COPD, if she required surgery it is unlikely we would be able to extubate the patient after surgery leading to prolonged ventilator weaning and possible requirement for tracheostomy. With the understanding that we would not provide operative intervention at [place] instead only conservative management, in keeping with the patient's wishes to remain in the [facility] medicine agreed to admit the patient for conservative management of the small bowel obstruction. 05/29 Passing gas, NG tube suctioned 200 mL, SBO likely beginning to resolve. Surgery following, on Zosyn. 05/30 Passing more gas today and no bowel movement yet. Abdominal x-ray showed mechanical small bowel obstruction, no significant interval change since 05/28/2021. 05/31 Yesterday abdominal x-ray no improvement. Patient did states she had a BM this morning. NG tube in place with significant output. Small bowel follow-through pending 06/01 Patient states she is feeling okay this morning. No worse. She says she had a small bowel movement last night but per nursing note there is no bowel movements. Small bowel follow-through showed high-grade small bowel obstruction. Will await plan once surgery discussion with patient family. 06/02 Patient reports having several moderate BMs overnight and this morning. NG output seems to be better. TPN ordered for today. Review of Systems: denies headache/fever/chills/nausea/vomiting/chest or abdominal pain/cough/dyspnea/diarrhea. Otherwise see above. Constitutional Vitals: Vital Signs Temp Pulse Resp BP Pulse Ox 98.1 F 78 20 144/83 100 06/02/21 07:22 06/02/21 07:22 06/02/21 07:22 06/02/21 04:10 06/02/21 07:22 Period Temp Pulse Resp BP Sys/Helm Pulse Ox Last 24 Hr 97.4 F-98.7 F 78-93 18-20 138-175/83-99 96-100 Intake and Output 06/01/21 06/02/21 06/02/21 21:59 05:59 13:59 Intake Total 671 430 50 Output Total 700 425 Balance -29 5 50 Weight 46.402 kg Intake & Output: Intake & Output 06/01/21 06/02/21 06/02/21 21:59 05:59 13:59 Intake Total 671 430 50 Output Total 700 425 Balance -29 5 50 Weight 46.402 kg Intake: IV 671 310 50 Lactated Ringers 1,000 ml @ 70 621 mls/hr IV .[id number] [facility] Rx#: [id number] Zosyn 3.375 gm In Dextrose 5% 50 50 50 in Water 50 ml @ 100 mls/hr IV Q6H [facility] Rx#:[id number] Potassium Chloride 20 Meq In 260 Dextrose 5% in Water 250 ml @ 130 mls/hr IV ONCE ONE Rx#: [id number] Oral 120 Tube Feeding 0 Output: Gastric Drainage 500 325 Right Nare NG/OG 500 325 Void Amount 200 100 Other: Urine Appearance Clear Urine Color Dark Yellow Urine Odor Normal Stool Size Small Small Stool Color Brown Brown Stool Consistency Soft Loose Formed # Bowel Movements 1 1 Exam: General: Alert, Awake, No acute Distress Eyes/N/T: EOMI, Head/Neck: neck supple, normocephalic atraumatic CV: RRR, No murmurs, normal s1/s2 Pulm: Clear b/l, no wheezing/rhonchi/rales Abd: soft, minimally tender, +BS x4, NG tube in place Ext: no clubbing/cyanosis/edema Neuro: Alert, no focal deficits, moves all extremities, Skin: warm/dry OBJ DATA Labs CBC & Chem 7: 06/02/21 05:07 06/02/21 05:07 Labs: Abnormal Lab Results 0406/[id number] 06/01/21 05:07 05:07 17:00 Plt Count 120 L MPV 12.9 H Neut % (Auto) 79.0 H Lymph % (Auto) 6.7 L Lymph # (Auto) 0.59 L Potassium 3.0 L Chloride 93 L 90 L Carbon Dioxide 40 H 36 H Anion Gap 6.0 L Creatinine 0.5 L 0.5 L Glucose 69 L Phosphorus 2.4 L AST 39 H 42 H Lactate Dehydrogenase 261 H 294 H Total Protein 5.3 L 5.7 L Globulin 1.7 L 2.0 L Prealbumin 11.4 L 05/31/21 05/31/21 05:16 05:16 Plt Count 132 L MPV 12.8 H Neut % (Auto) Lymph % (Auto) 11.7 L Lymph # (Auto) 0.94 L Potassium 3.1 L Chloride 94 L Carbon Dioxide 36 H Anion Gap Creatinine Glucose 63 L Phosphorus AST Lactate Dehydrogenase Total Protein 5.4 L Globulin 1.8 L Prealbumin Meds: Medications Acetaminophen (Acetaminophen 325 Mg Tablet) 650 mg PO Q6HP PRN; Protocol PRN Reason: Per Pain Protocol/Fever > 101 Last Admin: 06/02/21 05:39 Dose: 650 mg Documented by: Hydrocodone Bitart/Acetaminophen (Hydrocodone/Apap 5/325mg Tablet) 1 tab PO Q4HP PRN; Protocol PRN Reason: Per Pain Protocol Last Admin: 05/28/21 10:36 Dose: 1 tab Documented by: Diagnostic Test (Pha) (Accu-Chek 1 Each Strip) 1 each FS Q6 [facility]; Protocol Stop: 06/02/21 12:01 Last Admin: 06/02/21 05:40 Dose: 1 each Documented by: Docusate Sodium (Docusate Sodium 100 Mg Capsule) 100 mg PO BID [facility] Last Admin: 06/01/21 20:43 Dose: 100 mg Documented by: Enoxaparin Sodium (Enoxaparin 40 Mg/0.4 Ml Syringe) 40 mg SQ DAILY [facility] Last Admin: 06/01/21 08:26 Dose: 40 mg Documented by: Heparin Sodium (Porcine) (Heparin Flush 10 Units/Ml 5 Ml Syringe) 2 ml IV Q12 [facility] Last Admin: 06/01/21 20:44 Dose: 2 ml Documented by: Hydromorphone HCl (Hydromorphone 0.5 Mg/0.5 Ml Syringe) 0.5 mg IV Q2HP PRN; Protocol PRN Reason: Per Pain Protocol Last Admin: 05/28/21 20:28 Dose: 0.5 mg Documented by: Piperacillin Sod/Tazobactam (Sod 3.375 gm/ Dextrose) 50 mls @ 100 mls/hr IV Q6H [facility]; Protocol Last Infusion: 06/02/21 06:40 Dose: Infused Documented by: Potassium Chloride/Dextrose/Sod Cl (Dextrose 5%-1/2ns W/20meq Kcl) 1,000 mls @ 70 mls/hr IV .[id number] [facility] Last Admin: 06/01/21 23:04 Dose: 70 mls/hr Documented by: Lorazepam (Lorazepam 2 Mg/Ml Vial) 0.5 mg IV Q6HP PRN PRN Reason: ANXIETY/SEDATION Last Admin: 06/01/21 20:54 Dose: 0.5 mg Documented by: Ondansetron HCl (Ondansetron 4 Mg/2 Ml Vial) 4 mg IV Q6HP PRN PRN Reason: Nausea And Vomiting Last Admin: 05/31/21 10:41 Dose: 4 mg Documented by: Fluticasone- Umeclidin-Vilanter [ Trelegy Ellipta] Inhaler 1 dose INH Q24H [facility] Last Admin: 06/01/21 10:18 Dose: Not Given Documented by: Senna (Sennosides 1 Tablet) 2 tab PO HS [facility] Last Admin: 06/01/21 20:42 Dose: 2 tab Documented by: Sodium Chloride (0.9 % Sodium Chloride 10 Ml Syringe) 10 ml IV Q8 [facility] Last Admin: 06/02/21 05:41 Dose: 10 ml Documented by: Sodium Chloride (0.9 % Sodium Chloride 10 Ml Syringe) 10 ml IV UD PRN PRN Reason: FLUSH Sodium Chloride (0.9 % Sodium Chloride 10 Ml Syringe) 10 ml IV Q12 [facility] Last Admin: 06/01/21 20:45 Dose: 10 ml Documented by: A/P Narrative A/P Narrative: A: #SBO: several BM's o/n #Severe COPD w/chronic hypoxia (4L@home) & chronic met alkalosis compensation: #HTN: #h/o left nephrectomy: #h/o partial colectomy/appendectomy/hysterectomy/oophorectomy #Hypokalemia: replace Plan: -IV fluid, analgesics prn -Nasogastric tube -NPO -Replace electrolytes as needed -Gen surgery following -Zosyn per surgery -TPN -ppx: Lovenox Time Spent With Patient Time: Total time spent is greater than 50% in coordination of care (as documented) at patient's floor/unit and/or counseling patient: Total time spent with greater than 50% in coordination of care (as documented) at patient's floor/unit and/or counseling patient:: 25 - 35 minutes QUALITY VTE Deep Vein Thrombosis/Pulmonary Embolism Present on Admission: No
[2021-06-02] MEDS: DOCUSATE SODIUM 100 MG CAPSULE PO SCH ×2 (08:24→20:07)
[2021-06-02] MEDS: ENOXAPARIN 40 MG/0.4 ML SYRINGE SQ SCH (08:24)
[2021-06-02] MEDS: Fluticasone-Umeclidin-Vilanter [Trelegy Ellipta] Inhaler INH SCH (09:44)
[2021-06-02] MEDS: DEXTROSE 5%-1/2NS W/20MEQ KCL 1,000 ML IV SCH ×2 (11:50→17:13)
[2021-06-02] MEDS ORDERED: CALCIUM GLUCONATE 5 MEQ, MAGNESIUM SULFATE 8.12 MEQ, SODIUM CHLORIDE 20 MEQ, POTASSIUM ... IV SCH (12:00)
[2021-06-02] MEDS: BENZOCAINE 1 SPRAY BOTTLE TOPICAL PRN (12:54)
[2021-06-02] MEDS: INSULIN LISPRO 1 UNIT/0.01 ML UNIT SQ SCH ×3 (13:17→23:00)
--- NOTE | 2021-06-02 13:23 | XRay Report ---
INDICATION: eval bowel gas pattern ? resolving SBO TECHNIQUE: Supine and upright abdomen. COMPARISON: Previous film examinations dated 06/01/2021, 05/31/2021, 05/30/2021 FINDINGS:Esophagogastric tube in the proximal stomach Dilated gas filled small bowel remains present. There is some contrast material within small bowel. There is some contrast material with in the colon at the splenic flexure. Continued follow-up recommended. IMPRESSION: 1. Persistent dilated small bowel 2. Small amount of contrast material within the colon Interpreted and Authenticated by: Darell Milner 06/02/21
[2021-06-02 14:29] LABS: Prealbumin 11.7 mg/dL (20.0-40.0)
[2021-06-02 14:35] LABS: ALT/SGPT 25 U/L (<40); AST/SGOT 42 U/L (<32); Albumin 3.7 gm/dL (3.2-5.2); Albumin/Globulin Ratio 2.1 (1.0-2.3); Alkaline Phosphatase 46 U/L (39-117); Bilirubin,Direct 0.2 mg/dL (<0.3); Bilirubin,Total 0.6 mg/dL (0.1-1.0); Blood Urea Nitrogen 6 mg/dL (8-23); Calcium 8.9 mg/dL (8.6-10.4); Carbon Dioxide 39 mmol/L (22-30); Chloride 90 mmol/L (96-108); Globulin 1.8 gm/dL (2.2-3.7); Glomerular Filtration Rate 98; Glucose 138 mg/dL (70-105); Lactate Dehydrogenase 284 U/L (135-225); Phosphorous 1.8 mg/dL (2.5-4.5); Triglycerides 77 mg/dL (<150); Uric Acid 3.1 mg/dL (2.5-8.0)
[2021-06-02] MEDS ORDERED: POTASSIUM CHLORIDE 40 MEQ in DEXTROSE 5% IN WATER 500 ML IV ONE (14:49)
[2021-06-02] MEDS ORDERED: MAGNESIUM SULFATE 8.12 MEQ in DEXTROSE 5% IN WATER 50 ML IV ONE (14:50)
--- NOTE | 2021-06-02 16:30 | General Surgery Progress Note ---
SUBJECTIVE Subjective Patient information: Note initiated : 06/02/21 at 1230 pm Service Date, if different from initiated Date: [] Patient: Georgina Isaacs 81 y/o F admitted on 05/27/21 for Abdominal pain. Chief Complaint: [] She feels improved overall and has now been passing some gas and stool on a more regular basis. She feels all of her adominal pain has resolved. Principal diagnosis: SBO Constitutional Vitals: Vital Signs Temp Pulse Resp BP Pulse Ox 98.2 F 75 20 147/85 99 06/02/21 12:00 06/02/21 12:00 06/02/21 12:00 06/02/21 12:00 06/02/21 12:00 Period Temp Pulse Resp BP Sys/Helm Pulse Ox Last 24 Hr 98.1 F-98.7 F 75-89 18-20 138-175/83-99 96-100 Intake and Output 06/02/21 06/02/21 06/02/21 05:59 13:59 21:59 Intake Total 702 336 3191 Output Total 031 730 5001 Balance 5 -150 -300 Intake & Output: Intake & Output 06/02/21 06/02/21 06/02/21 05:59 13:59 21:59 Intake Total 877 078 9524 Output Total 592 971 9274 Balance 5 -150 -300 Intake: IV 674 31 7387 Dextrose 5%-1/2Ns W/20Meq KCl 1 1000 ,000 ml @ 70 mls/hr IV .[id number] [facility] Rx#:[id number] Zosyn 3.375 gm In Dextrose 5% 50 50 50 in Water 50 ml @ 100 mls/hr IV Q6H [facility] Rx#:[id number] Potassium Chloride 20 Meq In 260 Dextrose 5% in Water 250 ml @ 130 mls/hr IV ONCE ONE Rx#: [id number] Oral 120 100 Tube Feeding 0 Output: Gastric Drainage 325 700 Right Nare NG/OG 325 700 Void Amount 100 300 650 Other: Stool Size Small Small Small Stool Color Brown Brown Stool Consistency Loose Loose Loose # Bowel Movements 1 2 3 Exam: She looks well, non toxic GI/Abdominal Additional comments: belly is softer and non tender although some distension remains NGT in place and seems functional A/P Assessment and plan (1) Small bowel obstruction: Status: Acute Plan SBO Plain films today show persistent distension but looks lessened to me and there is now clear colonic gas present in the Right Colon Continue TPN and NGT for now Re check in AM - once bowel pattern has normalized will consider repeat SBFT vs NGT Clamp Trial with clears Time Spent With Patient Time: Total time spent is greater than 50% in coordination of care (as documented) at patient's floor/unit and/or counseling patient:
[2021-06-02] MEDS: FAT EMULSION 20% 250 ML in PREMIX 1 BAG IV SCH (17:13)
[2021-06-02] MEDS ORDERED: LISINOPRIL 20 MG TABLET PO ONE (19:55)
[2021-06-02] MEDS: SENNOSIDES 1 TABLET PO SCH (20:06)
[2021-06-02] MEDS: LORazepam 2 MG/ML VIAL IV PRN (20:07)
[2021-06-03] MEDS: BENZOCAINE 1 SPRAY BOTTLE TOPICAL PRN ×2 (03:34→05:03)
[2021-06-03] MEDS: 0.9 % SODIUM CHLORIDE 10 ML SYRINGE IV SCH ×5 (05:04→21:26)
[2021-06-03] MEDS: PIPERACILLIN SODIUM/TAZOBACTAM 3.375 GM in DEXTROSE 5% IN WATER 50 ML IV SCH ×4 (05:04→23:57)
[2021-06-03] MEDS: INSULIN LISPRO 1 UNIT/0.01 ML UNIT SQ SCH ×3 (05:13→17:43)
[2021-06-03 06:03] LABS: Basophils # (Auto) 0.02 K/mcL (0.00-0.30); Basophils % (Auto) 0.2 % (0.0-2.0); Eosinophils # (Auto) 0.61 K/mcL (0.00-0.70); Eosinophils % (Auto) 6.3 % (0.0-7.0); Hemoglobin 10.6 g/dL (11.2-15.7); Lymphocytes # (Auto) 0.53 K/mcL (1.50-4.80); Lymphocytes % (Auto) 5.5 % (15.5-49.0); Mean Cell Volume 101.5 fL (80.0-100.0); Mean Corpuscular HGB Conc 31.2 g/dL (31.0-36.0); Mean Platelet Volume 12.8 fL (7.4-10.4); Monocytes # (Auto) 0.64 K/mcL (0.10-0.90); Monocytes % (Auto) 6.6 % (1.0-12.0); Neutrophils % (Auto) 81.4 % (38.0-78.0); Platelet Count 108 K/mcL (140-440); RBC 3.35 M/mcL (3.59-5.38); WBC 9.7 K/mcL (4.5-11.0)
[2021-06-03 07:47] LABS: Basophils # (Auto) 0.02 K/mcL (0.00-0.30); Basophils % (Auto) 0.2 % (0.0-2.0); Eosinophils # (Auto) 0.62 K/mcL (0.00-0.70); Eosinophils % (Auto) 5.8 % (0.0-7.0); Hematocrit 40.2 % (34.1-44.9); Hemoglobin 12.6 g/dL (11.2-15.7); Lymphocytes % (Auto) 7.4 % (15.5-49.0); Mean Cell Volume 101.5 fL (80.0-100.0); Mean Corpuscular HGB Conc 31.3 g/dL (31.0-36.0); Mean Platelet Volume 12.2 fL (7.4-10.4); Monocytes # (Auto) 0.75 K/mcL (0.10-0.90); Neutrophils % (Auto) 79.6 % (38.0-78.0); Platelet Count 113 K/mcL (140-440); RBC 3.96 M/mcL (3.59-5.38); Red Cell Distribution Width 12.8 % (11.5-14.5); WBC 10.8 K/mcL (4.5-11.0)
[2021-06-03 08:07] LABS: ALT/SGPT 32 U/L (<40); AST/SGOT 46 U/L (<32); Albumin 3.6 gm/dL (3.2-5.2); Albumin/Globulin Ratio 1.9 (1.0-2.3); Alkaline Phosphatase 46 U/L (39-117); Bilirubin,Direct < 0.2 mg/dL (0-0.3); Bilirubin,Total 0.4 mg/dL (0.1-1.0); Blood Urea Nitrogen 4 mg/dL (8-23); Calcium 8.8 mg/dL (8.6-10.4); Carbon Dioxide 36 mmol/L (22-30); Chloride 94 mmol/L (96-108); Globulin 1.9 gm/dL (2.2-3.7); Glomerular Filtration Rate 91; Glucose 144 mg/dL (70-105); Lactate Dehydrogenase 287 U/L (135-225); Phosphorous 1.9 mg/dL (2.5-4.5); Triglycerides 73 mg/dL (<150)
[2021-06-03] MEDS ORDERED: hydrALAZINE 20 MG/ML VIAL IV PRN (08:16)
[2021-06-03] MEDS ORDERED: POTASSIUM PHOSPHATE 40 MEQ in DEXTROSE 5% IN WATER 500 ML IV ONE (08:18)
[2021-06-03] MEDS ORDERED: acetaZOLAMIDE SOD 500 MG VIAL IV ONE (08:18)
--- NOTE | 2021-06-03 08:18 | Internal Med Progress Note ---
SUBJECTIVE Subjective Patient information: Note initiated : 06/03/21 at 8:16 am Service Date, if different from initiated Date: [] Patient: Georgina Isaacs 81 y/o F admitted on 05/27/21 for Abdominal pain. Chief Complaint: [] Principal diagnosis: SBO Interval history: Ms. Isaacs is a 81 year old female with a history of partial colectomy, hysterectomy, oxygen dependent COPD, hypertension who presented to the emergency department for abdominal pain was found to have a small bowel obstruction on CT scan showing a transitional point in the right lower quadrant. General surgery recommended that the patient be transferred to a higher level of care, the emergency room department provider consulted with [facility] however transfer was refused at that facility. The patient did not want to transfer out of the [facility], instead wanted to try conservative management at [facility]. The concern is the patient's severe oxygen dependent COPD, if she required surgery it is unlikely we would be able to extubate the patient after surgery leading to prolonged ventilator weaning and possible requirement for tracheostomy. With the understanding that we would not provide operative intervention at [place] instead only conservative management, in keeping with the patient's wishes to remain in the [facility] medicine agreed to admit the patient for conservative management of the small bowel obstruction. 05/29 Passing gas, NG tube suctioned 200 mL, SBO likely beginning to resolve. Surgery following, on Zosyn. 05/30 Passing more gas today and no bowel movement yet. Abdominal x-ray showed mechanical small bowel obstruction, no significant interval change since 05/28/2021. 05/31 Yesterday abdominal x-ray no improvement. Patient did states she had a BM this morning. NG tube in place with significant output. Small bowel follow-through pending 06/01 Patient states she is feeling okay this morning. No worse. She says she had a small bowel movement last night but per nursing note there is no bowel movements. Small bowel follow-through showed high-grade small bowel obstruction. Will await plan once surgery discussion with patient family. 06/02 Patient reports having several moderate BMs overnight and this morning. NG output seems to be better. TPN ordered for today. 06/03 Patient states she is feeling okay. Says she had several BMs overnight. No nausea or vomiting. NG tube still putting out fluid. Review of Systems: denies headache/fever/chills/nausea/vomiting/chest or abdominal pain/cough/dyspnea/diarrhea. Otherwise see above. Constitutional Vitals: Vital Signs Temp Pulse Resp BP Pulse Ox 98.7 F 92 H 18 142/80 94 06/03/21 07:59 06/03/21 07:59 06/03/21 07:59 06/03/21 07:59 06/03/21 07:59 Period Temp Pulse Resp BP Sys/Helm Pulse Ox Last 24 Hr 96.9 F-98.7 F 68-92 - 132-162/80-100 92-99 Intake and Output 06/02/21 06/03/21 06/03/21 21:59 05:59 13:59 Intake Total 2101 410 Output Total 2100 650 450 Balance 1 -240 -450 Weight 46.04 kg Intake & Output: Intake & Output 06/02/21 06/03/21 06/03/21 21:59 05:59 13:59 Intake Total 2101 410 Output Total 2100 650 450 Balance 1 -240 -450 Weight 46.04 kg Intake: IV 2051 350 Dextrose 5%-1/2Ns W/20Meq KCl 1 1000 ,000 ml @ 70 mls/hr IV .[id number] [facility] Rx#:[id number] Intralipid 20% 250 ml In Premix 250 1 Bag @ 25 mls/hr IV Q48@1600 [facility] Rx#:[id number] Lactated Ringers 1,000 ml @ 70 379 mls/hr IV .[id number] [facility] Rx#: [id number] Magnesium Sulfate 8.12 Meq In 52 Dextrose 5% in Water 50 ml @ 52 mls/hr IV ONCE ONE Rx#: [id number] Zosyn 3.375 gm In Dextrose 5% 100 100 in Water 50 ml @ 100 mls/hr IV Q6H [facility] Rx#:[id number] Potassium Chloride 40 Meq In 520 Dextrose 5% in Water 500 ml @ 130 mls/hr IV ONCE ONE Rx#: [id number] Oral 50 60 Tube Feeding 0 Output: Gastric Drainage 700 400 Right Nare NG/OG 700 400 Void Amount 850 250 450 Urine/Stool Mix 550 Other: Urine Appearance Clear Urine Color Bright Yellow Dark Yellow Stool Size Small Small Stool Color Brown Brown Stool Consistency Loose Liquid Loose # Bowel Movements 3 1 Exam: General: Alert, Awake, No acute Distress Eyes/N/T: EOMI, Head/Neck: neck supple, normocephalic atraumatic CV: RRR, No murmurs, normal s1/s2 Pulm: Clear b/l, no wheezing/rhonchi/rales Abd: soft, minimally tender, +BS x4, NG tube in place Ext: no clubbing/cyanosis/edema Neuro: Alert, no focal deficits, moves all extremities, Skin: warm/dry OBJ DATA Labs CBC & Chem 7: 06/03/21 07:13 06/03/21 07:14 Labs: Abnormal Lab Results 06/03/21 06/03/21 06/03/21 07:14 07:13 05:08 RBC 3.35 L Hgb 10.6 L Hct 34.0 L MCV 101.5 H 101.5 H Plt Count 113 L 108 L MPV 12.2 H 12.8 H Neut % (Auto) 79.6 H 81.4 H Lymph % (Auto) 7.4 L 5.5 L Lymph # (Auto) 0.80 L 0.53 L Absolute Neutrophils 8.57 H Potassium 3.2 L Chloride 94 L Carbon Dioxide 36 H Anion Gap 5.0 L BUN 4 L Creatinine 0.5 L Glucose 144 H Uric Acid 2.0 L Phosphorus 1.9 L AST 46 H Lactate Dehydrogenase 287 H Total Protein 5.5 L Globulin 1.9 L Prealbumin 06/02/21 06/02/21 06/02/21 13:38 05:07 05:07 RBC Hgb Hct MCV Plt Count 120 L MPV 12.9 H Neut % (Auto) 79.0 H Lymph % (Auto) 6.7 L Lymph # (Auto) 0.59 L Absolute Neutrophils Potassium 2.9 L* Chloride 90 L 93 L Carbon Dioxide 39 H 40 H Anion Gap 6.0 L BUN 6 L Creatinine 0.4 L 0.5 L Glucose 138 H Uric Acid Phosphorus 1.8 L 2.4 L AST 42 H 39 H Lactate Dehydrogenase 284 H 261 H Total Protein 5.5 L 5.3 L Globulin 1.8 L 1.7 L Prealbumin 11.7 L 06/01/21 17:00 RBC Hgb Hct MCV Plt Count MPV Neut % (Auto) Lymph % (Auto) Lymph # (Auto) Absolute Neutrophils Potassium 3.0 L Chloride 90 L Carbon Dioxide 36 H Anion Gap BUN Creatinine 0.5 L Glucose 69 L Uric Acid Phosphorus AST 42 H Lactate Dehydrogenase 294 H Total Protein 5.7 L Globulin 2.0 L Prealbumin 11.4 L Meds: Medications Acetaminophen (Acetaminophen 325 Mg Tablet) 650 mg PO Q6HP PRN; Protocol PRN Reason: Per Pain Protocol/Fever > 101 Last Admin: 06/02/21 05:39 Dose: 650 mg Documented by: Hydrocodone Bitart/Acetaminophen (Hydrocodone/Apap 5/325mg Tablet) 1 tab PO Q4HP PRN; Protocol PRN Reason: Per Pain Protocol Last Admin: 05/28/21 10:36 Dose: 1 tab Documented by: Benzocaine (Benzocaine 1 [place] Bottle) 1 spray TOPICAL PRN PRN PRN Reason: Sore Throat Last Admin: 06/03/21 05:03 Dose: 1 spray Documented by: Diagnostic Test (Pha) (Accu-Chek 1 Each Strip) 1 each FS Q6 [facility] Last Admin: 06/03/21 05:04 Dose: 1 each Documented by: Docusate Sodium (Docusate Sodium 100 Mg Capsule) 100 mg PO BID [facility] Last Admin: 06/02/21 20:07 Dose: 100 mg Documented by: Enoxaparin Sodium (Enoxaparin 40 Mg/0.4 Ml Syringe) 40 mg SQ DAILY [facility] Last Admin: 06/02/21 08:24 Dose: 40 mg Documented by: Heparin Sodium (Porcine) (Heparin Flush 10 Units/Ml 5 Ml Syringe) 2 ml IV Q12 [facility] Last Admin: 06/02/21 20:10 Dose: 2 ml Documented by: Hydromorphone HCl (Hydromorphone 0.5 Mg/0.5 Ml Syringe) 0.5 mg IV Q2HP PRN; Pro tocol PRN Reason: Per Pain Protocol Last Admin: 05/28/21 20:28 Dose: 0.5 mg Documented by: Piperacillin Sod/Tazobactam (Sod 3.375 gm/ Dextrose) 50 mls @ 100 mls/hr IV Q6H [facility]; Protocol Last Infusion: 06/03/21 05:47 Dose: Infused Documented by: Calcium Gluconate 5 meq/Magnesium Sulfate 8.12 meq/Sodium Chloride 20 meq/Potassium Chloride 40 meq/Potassium Phosphate 20 meq/Amino Acids 1,042.2981 mls @ 20 mls/hr IV Q24H [facility] Last Admin: 06/02/21 12:53 Dose: 20 mls/hr Documented by: Fat Emulsion Intravenous 250 (ml/ Premix) 250 mls @ 25 mls/hr IV Q48@1600 [facility] Last Infusion: 06/03/21 03:26 Dose: Infused Documented by: Potassium Chloride/Dextrose/Sod Cl (Dextrose 5%-1/2ns W/20meq Kcl) 1,000 mls @ 50 mls/hr IV .Q20H [facility] Last Admin: 06/02/21 17:13 Dose: 50 mls/hr Documented by: Insulin Human Lispro (Insulin Lispro 1 Unit/0.01 Ml Unit) 0 unit SQ Q6 [facility]; Protocol Last Admin: 06/03/21 05:13 Dose: Not Given Documented by: Lisinopril (Lisinopril 20 Mg Tablet) 20 mg PO DAILY [facility] Lorazepam (Lorazepam 2 Mg/Ml Vial) 0.5 mg IV Q6HP PRN PRN Reason: ANXIETY/SEDATION Last Admin: 06/02/21 20:07 Dose: 0.5 mg Documented by: Ondansetron HCl (Ondansetron 4 Mg/2 Ml Vial) 4 mg IV Q6HP PRN PRN Reason: Nausea And Vomiting Last Admin: 05/31/21 10:41 Dose: 4 mg Documented by: Fluticasone- Umeclidin-Vilanter [ Trelegy Ellipta] Inhaler 1 dose INH Q24H [facility] Last Admin: 06/02/21 09:44 Dose: Not Given Documented by: Senna (Sennosides 1 Tablet) 2 tab PO HS [facility] Last Admin: 06/02/21 20:06 Dose: 2 tab Documented by: Sodium Chloride (0.9 % Sodium Chloride 10 Ml Syringe) 10 ml IV Q8 [facility] Last Admin: 06/03/21 05:04 Dose: 10 ml Documented by: Sodium Chloride (0.9 % Sodium Chloride 10 Ml Syringe) 10 ml IV UD PRN PRN Reason: FLUSH Sodium Chloride (0.9 % Sodium Chloride 10 Ml Syringe) 10 ml IV Q12 [facility] Last Admin: 06/02/21 20:08 Dose: Not Given Documented by: A/P Narrative A/P Narrative: A: #SBO: several BM's o/n #Severe COPD w/chronic hypoxia (4L@home) & chronic met alkalosis compensation: #Met alkalosis: 2/2 above #Hypokalemia/phos: #HTN: #h/o left nephrectomy: #h/o partial colectomy/appendectomy/hysterectomy/oophorectomy #Hypokalemia/hypophos: replace Plan: -IV fluid / TPN -Nasogastric tube -diet per surg, NPO except ice chips -Gen surgery following -Zosyn per surgery -Replace electrolytes -started home lisinopril -ppx: Lovenox Time Spent With Patient Time: Total time spent is greater than 50% in coordination of care (as documented) at patient's floor/unit and/or counseling patient: Total time spent with greater than 50% in coordination of care (as documented) at patient's floor/unit and/or counseling patient:: 25 - 35 minutes QUALITY VTE Deep Vein Thrombosis/Pulmonary Embolism Present on Admission: No
[2021-06-03] MEDS: ENOXAPARIN 40 MG/0.4 ML SYRINGE SQ SCH (08:50)
[2021-06-03] MEDS: Fluticasone-Umeclidin-Vilanter [Trelegy Ellipta] Inhaler INH SCH (08:54)
[2021-06-03] MEDS: LISINOPRIL 20 MG TABLET PO SCH (08:54)
[2021-06-03] MEDS ORDERED: TPN PER PHARMACY IV SCH (10:00)
[2021-06-03] MEDS: DOCUSATE SODIUM 100 MG CAPSULE PO SCH ×2 (10:21→21:23)
--- NOTE | 2021-06-03 11:19 | XRay Report ---
INDICATION: eval SBO for resolution TECHNIQUE: Supine and upright abdomen. COMPARISON: Previous examinations dated 06/02/2021, 06/01/2021, 05/31/2021, 05/30/2021 FINDINGS:Esophagogastric tube in the proximal stomach. Sidehole of the catheter is slightly above the gastroesophageal junction. Bowel gas pattern is essentially unchanged. There is persistent tach gas-filled dilatation of the small bowel. Contrast material has almost completely dissipated. There is some contrast material within the colon. No pneumoperitoneum. No biliary or portal venous gas. There are calcifications consistent with gallstones IMPRESSION: 1. Persistent obstructive pattern with gas-filled dilatation of small bowel 2. Small amount of contrast material within the colon Interpreted and Authenticated by: Darell Milner 06/03/21
[2021-06-03] MEDS: DEXTROSE 5%-1/2NS W/20MEQ KCL 1,000 ML IV SCH ×2 (11:29→13:58)
[2021-06-03] MEDS ORDERED: CALCIUM GLUCONATE 5 MEQ, MAGNESIUM SULFATE 8.12 MEQ, SODIUM CHLORIDE 20 MEQ, POTASSIUM ... IV SCH (12:00)
[2021-06-03] MEDS: ACETAMINOPHEN 325 MG TABLET PO PRN (14:01)
[2021-06-03] MEDS: SENNOSIDES 1 TABLET PO SCH (21:23)
--- NOTE | 2021-06-03 22:05 | General Surgery Progress Note ---
SUBJECTIVE Subjective Patient information: Note initiated : 06/03/21 at 10:01 pm Service Date, if different from initiated Date: [] Patient: Georgina Isaacs 81 y/o F admitted on 05/27/21 for Abdominal pain. Chief Complaint: [] She continues to feel improved with passage of gas and stool and denies any pain now. Principal diagnosis: SBO Constitutional Vitals: Vital Signs Temp Pulse Resp BP Pulse Ox 98.0 F 88 16 101/65 95 06/03/21 20:00 06/03/21 20:00 06/03/21 20:00 06/03/21 20:00 06/03/21 20:00 Period Temp Pulse Resp BP Sys/Helm Pulse Ox Last 24 Hr 97.3 F-99 F 85-92 16-20 94-154/55-92 92-97 Intake and Output 06/03/21 06/03/21 06/04/21 13:59 21:59 05:59 Intake Total 2112.0909 110 Output Total 1150 1010 Balance 962.0909 -900 Intake & Output: Intake & Output 06/03/21 06/03/21 06/04/21 13:59 21:59 05:59 Intake Total 2112.0909 110 Output Total 1150 1010 Balance 962.0909 -900 Intake: IV 2112.0909 50 Calcium Gluconate 5 Meq 479 Magnesium Sulfate 8.12 Meq Sodium Chloride 20 Meq Potassium Chloride 40 Meq Potassium Phosphate 30 Meq In Clinimix 5%-20% Solution 1,000 ml @ 40 mls/hr IV Q24H [facility] Rx#: [id number] Dextrose 5%-1/2Ns W/20Meq KCl 1 1074 ,000 ml @ 30 mls/hr IV .Q24H [facility] Rx#:[id number] Zosyn 3.375 gm In Dextrose 5% 50 50 in Water 50 ml @ 100 mls/hr IV Q6H [facility] Rx#:[id number] Potassium Phosphate 40 Meq In 509.0909 Dextrose 5% in Water 500 ml @ 127.273 mls/hr IV ONCE ONE Rx#: [id number] Tube Feeding 0 0 NG Tube Flush 60 Right Nare NG/OG 60 Output: Gastric Drainage 500 Right Nare NG/OG 500 Void Amount 1150 500 Stool 10 Other: Urine Appearance Clear Urine Color Bright Yellow Bright Yellow Urine Odor Normal Stool Size Small Small Stool Color Brown Green Stool Consistency Liquid Loose Loose # Bowel Movements 1 1 General appearance: cooperative and no acute distress GI/Abdominal Additional comments: soft and non tender, mild residual distension, no mass or hernia noted NGT In place and functional A/P Assessment and plan (1) Small bowel obstruction: Assessment and plan: Clinically resolving SBO Check plain films again today - if pattern still suggestive of SBO then consider a repeat SBFT tomorrow and if appears resolved will clamp NGT and begin clears Issues and plans discussed with patient at length and she is in agreement with the plan Status: Acute Time Spent With Patient Time: Total time spent is greater than 50% in coordination of care (as documented) at patient's floor/unit and/or counseling patient:
[2021-06-03] MEDS: LORazepam 2 MG/ML VIAL IV PRN (23:57)
[2021-06-04] MEDS: BENZOCAINE 1 SPRAY BOTTLE TOPICAL PRN
[2021-06-04] MEDS: INSULIN LISPRO 1 UNIT/0.01 ML UNIT SQ SCH ×5 (00:03→20:43)
[2021-06-04] MEDS: ACETAMINOPHEN 325 MG TABLET PO PRN ×2 (05:45→20:08)
[2021-06-04] MEDS: PIPERACILLIN SODIUM/TAZOBACTAM 3.375 GM in DEXTROSE 5% IN WATER 50 ML IV SCH (05:46)
[2021-06-04] MEDS: 0.9 % SODIUM CHLORIDE 10 ML SYRINGE IV SCH ×5 (05:48→20:09)
[2021-06-04 07:17] LABS: ALT/SGPT 48 U/L (<40); AST/SGOT 54 U/L (<32); Albumin 3.7 gm/dL (3.2-5.2); Albumin/Globulin Ratio 2.1 (1.0-2.3); Alkaline Phosphatase 46 U/L (39-117); Bilirubin,Direct < 0.2 mg/dL (0-0.3); Bilirubin,Total 0.4 mg/dL (0.1-1.0); Blood Urea Nitrogen 7 mg/dL (8-23); Calcium 8.7 mg/dL (8.6-10.4); Carbon Dioxide 29 mmol/L (22-30); Chloride 102 mmol/L (96-108); Globulin 1.8 gm/dL (2.2-3.7); Glomerular Filtration Rate 91; Glucose 137 mg/dL (70-105); Lactate Dehydrogenase 293 U/L (135-225); Phosphorous 3.2 mg/dL (2.5-4.5); Triglycerides 78 mg/dL (<150); Uric Acid 1.3 mg/dL (2.5-8.0)
--- NOTE | 2021-06-04 07:55 | Internal Med Progress Note ---
SUBJECTIVE Subjective Patient information: Note initiated : 06/04/21 at 7:53 am Service Date, if different from initiated Date: [] Patient: Georgina Isaacs 81 y/o F admitted on 05/27/21 for Abdominal pain. Chief Complaint: [] Principal diagnosis: SBO Interval history: Ms. Isaacs is a 81 year old female with a history of partial colectomy, hysterectomy, oxygen dependent COPD, hypertension who presented to the emergency department for abdominal pain was found to have a small bowel obstruction on CT scan showing a transitional point in the right lower quadrant. General surgery recommended that the patient be transferred to a higher level of care, the emergency room department provider consulted with [facility] however transfer was refused at that facility. The patient did not want to transfer out of the [facility], instead wanted to try conservative management at [facility]. The concern is the patient's severe oxygen dependent COPD, if she required surgery it is unlikely we would be able to extubate the patient after surgery leading to prolonged ventilator weaning and possible requirement for tracheostomy. With the understanding that we would not provide operative intervention at [place] instead only conservative management, in keeping with the patient's wishes to remain in the [facility] agreed to admit the patient for conservative management of the small bowel obstruction. 05/29 Passing gas, NG tube suctioned 200 mL, SBO likely beginning to resolve. Surgery following, on Zosyn. 05/30 Passing more gas today and no bowel movement yet. Abdominal x-ray showed mechanical small bowel obstruction, no significant interval change since 05/28/2021. 05/31 Yesterday abdominal x-ray no improvement. Patient did states she had a BM this morning. NG tube in place with significant output. Small bowel follow-through pending 06/01 Patient states she is feeling okay this morning. No worse. She says she had a small bowel movement last night but per nursing note there is no bowel movements. Small bowel follow-through showed high-grade small bowel obstruction. Will await plan once surgery discussion with patient family. 06/02 Patient reports having several moderate BMs overnight and this morning. NG output seems to be better. TPN ordered for today. 06/03 Patient states she is feeling okay. Says she had several BMs overnight. No nausea or vomiting. NG tube still putting out fluid. 06/04 Patient says she had passed a lot of gas lately. No nausea vomiting or abdominal abdominal pain. Review of Systems: denies headache/fever/chills/nausea/vomiting/chest or abdominal pain/cough/dyspnea/diarrhea. Otherwise see above. Constitutional Vitals: Vital Signs Temp Pulse Resp BP Pulse Ox 98.6 F 81 14 102/63 99 06/04/21 07:29 06/04/21 07:29 06/04/21 07:29 06/04/21 07:29 06/04/21 07:29 Period Temp Pulse Resp BP Sys/Helm Pulse Ox Last 24 Hr 98.0 F-99 F 80-92 14-18 94-142/55-86 94-99 Intake and Output 06/03/21 06/04/21 06/04/21 21:59 05:59 13:59 Intake Total 110 50 50 Output Total 1510 1175 Balance -1400 -1125 50 Weight 45.722 kg Intake & Output: Intake & Output 06/03/21 06/04/21 06/04/21 21:59 05:59 13:59 Intake Total 110 50 50 Output Total 1510 1175 Balance -1400 -1125 50 Weight 45.722 kg Intake: IV 50 50 50 Zosyn 3.375 gm In Dextrose 5% 50 50 50 in Water 50 ml @ 100 mls/hr IV Q6H [facility] Rx#:[id number] Tube Feeding 0 NG Tube Flush 60 Right Nare NG/OG 60 Output: Gastric Drainage 500 300 Right Nare NG/OG 500 300 Urine Catheter Amount 325 Void Amount 1000 550 Stool 10 Other: Urine Appearance Clear Clear Urine Color Bright Yellow Bright Yellow Urine Odor Normal Normal Stool Size Small Moderate Stool Color Green Brown Green Stool Consistency Loose Loose # Bowel Movements 1 1 Exam: General: Alert, Awake, No acute Distress Eyes/N/T: EOMI, Head/Neck: neck supple, normocephalic atraumatic CV: RRR, No murmurs, normal s1/s2 Pulm: Clear b/l, no wheezing/rhonchi/rales Abd: soft, nontender, +BS x4, NG tube in place Ext: no clubbing/cyanosis/edema Neuro: Alert, no focal deficits, moves all extremities, Skin: warm/dry OBJ DATA Labs CBC & Chem 7: 06/03/21 07:13 06/04/21 05:20 Labs: Abnormal Lab Results 06/04/21 06/03/21 06/03/21 05:20 07:14 07:13 RBC Hgb Hct MCV 101.5 H Plt Count 113 L MPV 12.2 H Neut % (Auto) 79.6 H Lymph % (Auto) 7.4 L Lymph # (Auto) 0.80 L Absolute Neutrophils 8.57 H Potassium 3.2 L Chloride 94 L Carbon Dioxide 36 H Anion Gap 7.0 L 5.0 L BUN 7 L 4 L Creatinine 0.5 L 0.5 L Glucose 137 H 144 H Uric Acid 1.3 L 2.0 L Phosphorus 1.9 L AST 54 H 46 H ALT 48 H Lactate Dehydrogenase 293 H 287 H Total Protein 5.5 L 5.5 L Globulin 1.8 L 1.9 L Prealbumin 06/03/21 06/02/21 06/02/21 05:08 13:38 05:07 RBC 3.35 L Hgb 10.6 L Hct 34.0 L MCV 101.5 H Plt Count 108 L 120 L MPV 12.8 H 12.9 H Neut % (Auto) 81.4 H 79.0 H Lymph % (Auto) 5.5 L 6.7 L Lymph # (Auto) 0.53 L 0.59 L Absolute Neutrophils Potassium 2.9 L* Chloride 90 L Carbon Dioxide 39 H Anion Gap BUN 6 L Creatinine 0.4 L Glucose 138 H Uric Acid Phosphorus 1.8 L AST 42 H ALT Lactate Dehydrogenase 284 H Total Protein 5.5 L Globulin 1.8 L Prealbumin 11.7 L 06/02/21 06/01/21 05:07 17:00 RBC Hgb Hct MCV Plt Count MPV Neut % (Auto) Lymph % (Auto) Lymph # (Auto) Absolute Neutrophils Potassium 3.0 L Chloride 93 L 90 L Carbon Dioxide 40 H 36 H Anion Gap 6.0 L BUN Creatinine 0.5 L 0.5 L Glucose 69 L Uric Acid Phosphorus 2.4 L AST 39 H 42 H ALT Lactate Dehydrogenase 261 H 294 H Total Protein 5.3 L 5.7 L Globulin 1.7 L 2.0 L Prealbumin 11.4 L Meds: Medications Acetaminophen (Acetaminophen 325 Mg Tablet) 650 mg PO Q6HP PRN; Protocol PRN Reason: Per Pain Protocol/Fever > 101 Last Admin: 06/04/21 05:45 Dose: 650 mg Documented by: Hydrocodone Bitart/Acetaminophen (Hydrocodone/Apap 5/325mg Tablet) 1 tab PO Q4HP PRN; Protocol PRN Reason: Per Pain Protocol Last Admin: 05/28/21 10:36 Dose: 1 tab Documented by: Benzocaine (Benzocaine 1 [place] Bottle) 1 spray TOPICAL PRN PRN PRN Reason: Sore Throat Last Admin: 06/04/21 00:00 Dose: 1 spray Documented by: Diagnostic Test (Pha) (Accu-Chek 1 Each Strip) 1 each FS Q6 [facility] Last Admin: 06/04/21 05:46 Dose: 1 each Documented by: Docusate Sodium (Docusate Sodium 100 Mg Capsule) 100 mg PO BID [facility] Last Admin: 06/03/21 21:23 Dose: 100 mg Documented by: Enoxaparin Sodium (Enoxaparin 40 Mg/0.4 Ml Syringe) 40 mg SQ DAILY [facility] Last Admin: 06/03/21 08:50 Dose: 40 mg Documented by: Heparin Sodium (Porcine) (Heparin Flush 10 Units/Ml 5 Ml Syringe) 2 ml IV Q12 [facility] Last Admin: 06/03/21 21:23 Dose: 2 ml Documented by: Hydralazine HCl (Hydralazine 20 Mg/Ml Vial) 0 mg IV Q2HP PRN PRN Reason: Hypertension Hydromorphone HCl (Hydromorphone 0.5 Mg/0.5 Ml Syringe) 0.5 mg IV Q2HP PRN; Protocol PRN Reason: Per Pain Protocol Last Admin: 05/28/21 20:28 Dose: 0.5 mg Documented by: Piperacillin Sod/Tazobactam (Sod 3.375 gm/ Dextrose) 50 mls @ 100 mls/hr IV Q6H [facility]; Protocol Last Infusion: 06/04/21 06:30 Dose: Infused Documented by: Fat Emulsion Intravenous 250 (ml/ Premix) 250 mls @ 25 mls/hr IV Q48@1600 [facility] Last Infusion: 06/03/21 03:26 Dose: Infused Documented by: Potassium Chloride/Dextrose/Sod Cl (Dextrose 5%-1/2ns W/20meq Kcl) 1,000 mls @ 30 mls/hr IV .Q24H [facility] Last Admin: 06/03/21 13:58 Dose: 30 mls/hr Documented by: Calcium Gluconate 5 meq/Magnesium Sulfate 8.12 meq/Sodium Chloride 20 meq/Pota ssium Chloride 40 meq/Potassium Phosphate 30 meq/Amino Acids 1,044.5708 mls @ 40 mls/hr IV Q24H [facility] Last Infusion: 06/03/21 13:58 Dose: 40 mls/hr Documented by: Insulin Human Lispro (Insulin Lispro 1 Unit/0.01 Ml Unit) 0 unit SQ Q6 [facility]; Protocol Last Admin: 06/04/21 05:46 Dose: Not Given Documented by: Lisinopril (Lisinopril 20 Mg Tablet) 20 mg PO DAILY [facility] Last Admin: 06/03/21 08:54 Dose: 20 mg Documented by: Lorazepam (Lorazepam 2 Mg/Ml Vial) 0.5 mg IV Q6HP PRN PRN Reason: ANXIETY/SEDATION Last Admin: 06/03/21 23:57 Dose: 0.5 mg Documented by: Ondansetron HCl (Ondansetron 4 Mg/2 Ml Vial) 4 mg IV Q6HP PRN PRN Reason: Nausea And Vomiting Last Admin: 05/31/21 10:41 Dose: 4 mg Documented by: Fluticasone- Umeclidin-Vilanter [ Trelegy Ellipta] Inhaler 1 dose INH Q24H [facility] Last Admin: 06/03/21 08:54 Dose: 1 dose Documented by: Senna (Sennosides 1 Tablet) 2 tab PO HS [facility] Last Admin: 06/03/21 21:23 Dose: 2 tab Documented by: Sodium Chloride (0.9 % Sodium Chloride 10 Ml Syringe) 10 ml IV Q8 [facility] Last Admin: 06/04/21 05:48 Dose: Not Given Documented by: Sodium Chloride (0.9 % Sodium Chloride 10 Ml Syringe) 10 ml IV UD PRN PRN Reason: FLUSH Sodium Chloride (0.9 % Sodium Chloride 10 Ml Syringe) 10 ml IV Q12 [facility] Last Admin: 06/03/21 21:26 Dose: Not Given Documented by: A/P Narrative A/P Narrative: A: #SBO: #Severe COPD w/chronic hypoxia (4L@home) & chronic met alkalosis compensation: -only on 2.L currently with high sats #Met alkalosis: 2/2 above #Hypokalemia/phos: improved #HTN: #h/o left nephrectomy: #h/o partial colectomy/appendectomy/hysterectomy/oophorectomy Plan: -IV fluid / TPN -Nasogastric tube -diet per surg, NPO except ice chips -Gen surgery following -Zosyn per surgery -Replace electrolytes -started home lisinopril -ppx: Lovenox Time Spent With Patient Time: Total time spent is greater than 50% in coordination of care (as documented) at patient's floor/unit and/or counseling patient: QUALITY VTE Deep Vein Thrombosis/Pulmonary Embolism Present on Admission: No
[2021-06-04] MEDS: DOCUSATE SODIUM 100 MG CAPSULE PO SCH ×3 (08:49→20:08)
[2021-06-04] MEDS: ENOXAPARIN 40 MG/0.4 ML SYRINGE SQ SCH (08:49)
[2021-06-04] MEDS: LISINOPRIL 20 MG TABLET PO SCH (08:59)
[2021-06-04] MEDS: Fluticasone-Umeclidin-Vilanter [Trelegy Ellipta] Inhaler INH SCH (09:03)
--- NOTE | 2021-06-04 09:45 | XRay Report ---
INDICATION: SBO, patient passsing large amounts of flatus TECHNIQUE: Supine and upright abdomen. COMPARISON: Multiple previous plain film abdomen examinations FINDINGS:Esophagogastric tube remains unchanged in its tip in the proximal stomach. Sidehole of the catheter remains above the gastroesophageal junction There continues to be gas-filled and mildly distended small bowel. There is increased colonic and rectal gas consistent with interval improvement. IMPRESSION: Improved plain film examination with increased colonic and rectal gas Interpreted and Authenticated by: Darell Milner 06/04/21
--- NOTE | 2021-06-04 10:53 | General Surgery Progress Note ---
SUBJECTIVE Subjective Patient information: Note initiated : 06/04/21 at 10:50 am Service Date, if different from initiated Date: [] Patient: Georgina Isaacs 81 y/o F admitted on 05/27/21 for Abdominal pain. Chief Complaint: [] She is adamant about passing more gas now at this point and feels much improved. No pain or other issue Principal diagnosis: SBO Constitutional Vitals: Vital Signs Temp Pulse Resp BP Pulse Ox 98.6 F 96 H 14 118/76 95 06/04/21 07:29 06/04/21 09:05 06/04/21 07:29 06/04/21 09:05 06/04/21 10:04 Period Temp Pulse Resp BP Sys/Helm Pulse Ox Last 24 Hr 98.0 F-99 F 80-96 14-18 94-137/55-86 95-99 Intake and Output 06/03/21 06/04/21 06/04/21 21:59 05:59 13:59 Intake Total 110 50 80 Output Total 1510 1175 230 Balance -1400 -1125 -150 Weight 100 lb 12.8 oz Intake & Output: Intake & Output 06/03/21 06/04/21 06/04/21 21:59 05:59 13:59 Intake Total 110 50 80 Output Total 1510 1175 230 Balance -1400 -1125 -150 Weight 100 lb 12.8 oz Intake: IV 50 50 50 Zosyn 3.375 gm In Dextrose 5% 50 50 50 in Water 50 ml @ 100 mls/hr IV Q6H [facility] Rx#:[id number] Tube Feeding 0 0 NG Tube Flush 60 30 Right Nare NG/OG 60 30 Output: Gastric Drainage 500 300 30 Right Nare NG/OG 500 300 30 Urine Catheter Amount 325 Void Amount 1000 550 Urine/Stool Mix 200 Stool 10 Other: Urine Appearance Clear Clear Urine Color Bright Yellow Bright Yellow Straw Urine Odor Normal Normal Stool Size Small Moderate Small Stool Color Green Brown Brown Green Stool Consistency Loose Loose Liquid Watery Loose # Bowel Movements 1 1 Exam: she looks very good and is in no distress GI/Abdominal Additional comments: belly seems soft and less distended, non tender, no mass NGT in place A/P Assessment and plan (1) Small bowel obstruction: Assessment and plan: Resolving SBO Imaging demonstrates improving bowel gas pattern Clamp NGT and start clears Repeat imaging in the AM Status: Acute Time Spent With Patient Time: Total time spent is greater than 50% in coordination of care (as documented) at patient's floor/unit and/or counseling patient:
[2021-06-04] MEDS: DEXTROSE 5%-1/2NS W/20MEQ KCL 1,000 ML IV SCH (11:56)
[2021-06-04] MEDS ORDERED: [UNRECOGNIZED DRUG - OTHER] IV SCH (12:00)
[2021-06-04] MEDS ORDERED: CALCIUM GLUCONATE IV SCH (12:00)
[2021-06-04] MEDS ORDERED: SODIUM CHLORIDE IV SCH (12:00)
[2021-06-04] MEDS ORDERED: MAGNESIUM SULFATE IV SCH (12:00)
[2021-06-04] MEDS: FAT EMULSION 20% 250 ML in PREMIX 1 BAG IV SCH (16:15)
[2021-06-04] MEDS: SENNOSIDES 1 TABLET PO SCH (20:08)
[2021-06-04] MEDS: LORazepam 2 MG/ML VIAL IV PRN (20:49)
[2021-06-05] MEDS: DEXTROSE 5%-1/2NS W/20MEQ KCL 1,000 ML IV SCH ×2 (03:15→11:45)
[2021-06-05] MEDS: 0.9 % SODIUM CHLORIDE 10 ML SYRINGE IV SCH ×5 (05:35→20:30)
[2021-06-05 06:35] LABS: Basophils # (Auto) 0.03 K/mcL (0.00-0.30); Basophils % (Auto) 0.3 % (0.0-2.0); Eosinophils % (Auto) 3.8 % (0.0-7.0); Hematocrit 38.4 % (34.1-44.9); Hemoglobin 12.1 g/dL (11.2-15.7); Lymphocytes # (Auto) 0.67 K/mcL (1.50-4.80); Lymphocytes % (Auto) 6.4 % (15.5-49.0); Mean Cell Volume 100.5 fL (80.0-100.0); Mean Corpuscular HGB Conc 31.5 g/dL (31.0-36.0); Mean Platelet Volume 12.8 fL (7.4-10.4); Monocytes # (Auto) 0.68 K/mcL (0.10-0.90); Monocytes % (Auto) 6.5 % (1.0-12.0); Platelet Count 146 K/mcL (140-440); RBC 3.82 M/mcL (3.59-5.38); Red Cell Distribution Width 13.2 % (11.5-14.5); WBC 10.5 K/mcL (4.5-11.0)
[2021-06-05 07:02] LABS: ALT/SGPT 69 U/L (<40); AST/SGOT 63 U/L (<32); Albumin 3.4 gm/dL (3.2-5.2); Albumin/Globulin Ratio 1.4 (1.0-2.3); Alkaline Phosphatase 50 U/L (39-117); Bilirubin,Total 0.2 mg/dL (0.1-1.0); Blood Urea Nitrogen 16 mg/dL (8-23); Calcium 9.1 mg/dL (8.6-10.4); Carbon Dioxide 25 mmol/L (22-30); Chloride 105 mmol/L (96-108); Globulin 2.5 gm/dL (2.2-3.7); Glomerular Filtration Rate 91; Glucose 125 mg/dL (70-105)
[2021-06-05 07:03] LABS: Phosphorous 4.1 mg/dL (2.5-4.5)
[2021-06-05] MEDS: INSULIN LISPRO 1 UNIT/0.01 ML UNIT SQ SCH ×4 (07:17→20:28)
[2021-06-05] MEDS: LISINOPRIL 20 MG TABLET PO SCH (08:33)
[2021-06-05] MEDS: ENOXAPARIN 40 MG/0.4 ML SYRINGE SQ SCH (08:33)
[2021-06-05] MEDS: DOCUSATE SODIUM 100 MG CAPSULE PO SCH ×2 (08:33→20:27)
[2021-06-05] MEDS: Fluticasone-Umeclidin-Vilanter [Trelegy Ellipta] Inhaler INH SCH (08:35)
--- NOTE | 2021-06-05 10:04 | General Surgery Progress Note ---
SUBJECTIVE Subjective Patient information: Note initiated : 06/05/21 at 10:02 am Service Date, if different from initiated Date: [] Patient: Georgina Isaacs 81 y/o F admitted on 05/27/21 for Abdominal pain. Chief Complaint: [] Principal diagnosis: SBO Interval history: No significant changes overnight, slightly decreased NG tube output Constitutional Vitals: Vital Signs Temp Pulse Resp BP Pulse Ox 97.9 F 89 26 H 129/72 98 06/05/21 07:22 06/05/21 07:22 06/05/21 09:13 06/05/21 07:22 06/05/21 07:22 Period Temp Pulse Resp BP Sys/Helm Pulse Ox Last 24 Hr 97.9 F-99.4 F 86-107 16-28 114-150/68-86 95-99 Intake and Output 06/04/21 06/05/21 06/05/21 21:59 05:59 13:59 Intake Total 720 2090 0 Output Total 850 800 Balance -130 1290 0 Weight 96 lb 14.4 oz Intake & Output: Intake & Output 06/04/21 06/05/21 06/05/21 21:59 05:59 13:59 Intake Total 720 2090 0 Output Total 850 800 Balance -130 1290 0 Weight 96 lb 14.4 oz Intake: Nourishment/Supplement quantity 240 (ml) IV 1250 Dextrose 5%-1/2Ns W/20Meq KCl 1 1000 ,000 ml @ 10 mls/hr IV .Q24H [facility] Rx#:[id number] Intralipid 20% 250 ml In Premix 250 1 Bag @ 25 mls/hr IV Q48@1600 [facility] Rx#:[id number] Oral 480 840 Tube Feeding 0 0 Output: Void Amount 550 250 Urine/Stool Mix 300 550 Other: Meal Dinner Percent of Meal Consumed 50% Feeding Ability Independent Nourishment/Supplement name Mixed [place] Ensure Urine Appearance Clear Urine Color Dark Yellow Pale Urine Odor Normal Stool Size Small Stool Color Brown Stool Consistency Liquid General appearance: no acute distress GI/Abdominal GI/Abdominal exam: Present soft; Absent distended or tenderness A/P Narrative Plan of Treatment: Continue n.p.o., NG tube TPN. Time Spent With Patient Time: Total time spent is greater than 50% in coordination of care (as documented) at patient's floor/unit and/or counseling patient:
--- NOTE | 2021-06-05 10:13 | XRay Report ---
INDICATION: Eval improving SBO TECHNIQUE: Supine and upright abdomen. COMPARISON: Previous plain film abdomen dated 06/04/2021, 06/03/2021, 06/02/2021, 06/01/2021, 05/31/2021, 05/30/2021 FINDINGS:No change in esophagogastric tube position. Tip is in the proximal stomach. Sidehole is above the gastroesophageal junction. Stomach is now gas filled and moderately distended. Small bowel gas is less prominent than previously. There is some gas within the colon including the rectum. No biliary or portal venous gas. There is no pneumatosis. IMPRESSION: 1. Moderate gaseous distention of the stomach 2. Decreased small bowel distention. Small amount of gas in the colon and rectum Interpreted and Authenticated by: Darell Milner 06/05/21
--- NOTE | 2021-06-05 10:29 | Internal Med Progress Note ---
SUBJECTIVE Subjective Patient information: Note initiated : 06/05/21 at 10:25 am Service Date, if different from initiated Date: [] Patient: Georgina Isaacs 81 y/o F admitted on 05/27/21 for Abdominal pain. Chief Complaint: [] Principal diagnosis: SBO Interval history: Ms. Isaacs is a 81 year old female with a history of partial colectomy, hysterectomy, oxygen dependent COPD, hypertension who presented to the emergency department for abdominal pain was found to have a small bowel obstruction on CT scan showing a transitional point in the right lower quadrant. General surgery recommended that the patient be transferred to a higher level of care, the emergency room department provider consulted with [facility] however transfer was refused at that facility. The patient did not want to transfer out of the [facility], instead wanted to try conservative management at [facility]. The concern is the patient's severe oxygen dependent COPD, if she required surgery it is unlikely we would be able to extubate the patient after surgery leading to prolonged ventilator weaning and possible requirement for tracheostomy. With the understanding that we would not provide operative intervention at [place] instead only conservative management, in keeping with the patient's wishes to remain in the [facility] agreed to admit the patient for conservative management of the small bowel obstruction. 05/29 Passing gas, NG tube suctioned 200 mL, SBO likely beginning to resolve. Surgery following, on Zosyn. 05/30 Passing more gas today and no bowel movement yet. Abdominal x-ray showed mechanical small bowel obstruction, no significant interval change since 05/28/2021. 05/31 Yesterday abdominal x-ray no improvement. Patient did states she had a BM this morning. NG tube in place with significant output. Small bowel follow-through pending 06/01 Patient states she is feeling okay this morning. No worse. She says she had a small bowel movement last night but per nursing note there is no bowel movements. Small bowel follow-through showed high-grade small bowel obstruction. Will await plan once surgery discussion with patient family. 06/02 Patient reports having several moderate BMs overnight and this morning. NG output seems to be better. TPN ordered for today. 06/03 Patient states she is feeling okay. Says she had several BMs overnight. No nausea or vomiting. NG tube still putting out fluid. 06/04 Patient says she had passed a lot of gas lately. No nausea vomiting or abdominal abdominal pain. 06/05: Patient had a bowel movement earlier this morning. TPN clamped. Continue TPN. On clear liquid diet. Denies any nausea or vomiting. Denies abdominal pain. On 2.5L/min oxygen, denies shortness of breath, cough, or respiratory wheezing. Constitutional Vitals: Vital Signs Temp Pulse Resp BP Pulse Ox 36.6 C 89 26 H 129/72 98 06/05/21 07:22 06/05/21 07:22 06/05/21 09:13 06/05/21 07:22 06/05/21 07:22 Period Temp Pulse Resp BP Sys/Helm Pulse Ox Last 24 Hr 36.6 C-37.4 C 86-107 16-28 114-150/68-86 95-99 Intake and Output 06/04/21 06/05/21 06/05/21 21:59 05:59 13:59 Intake Total 720 2090 0 Output Total 850 800 450 Balance -130 1290 -450 Weight 43.953 kg Intake & Output: Intake & Output 06/04/21 06/05/21 06/05/21 21:59 05:59 13:59 Intake Total 720 2090 0 Output Total 850 800 450 Balance -130 1290 -450 Weight 43.953 kg Intake: Nourishment/Supplement quantity 240 (ml) IV 1250 Dextrose 5%-1/2Ns W/20Meq KCl 1 1000 ,000 ml @ 10 mls/hr IV .Q24H [facility] Rx#:[id number] Intralipid 20% 250 ml In Premix 250 1 Bag @ 25 mls/hr IV Q48@1600 [facility] Rx#:[id number] Oral 480 840 Tube Feeding 0 0 Output: Void Amount 550 250 Urine/Stool Mix 300 550 450 Other: Meal Dinner Breakfast Percent of Meal Consumed 50% 50% Feeding Ability Independent Independent Nourishment/Supplement name Mixed [place] Ensure Urine Appearance Clear Urine Color Dark Yellow Pale Urine Odor Normal Stool Size Small Stool Color Brown Stool Consistency Liquid General appearance: cooperative, no acute distress and thin Head Head exam: Present atraumatic and normal inspection Eye Eye exam: Present normal appearance ENT ENT exam: Present mucous membranes moist, normal exam and normal external ear exam Additional comments: Nasal cannula in place NG tube in place, clamped Neck Neck exam: Present normal inspection Respiratory Respiratory exam: Present decreased breath sounds Cardiovascular Cardiovascular exam: Present normal rate and rhythm GI/Abdominal GI/Abdominal exam: Present hypoactive bowel sounds Back Exam Back exam: Present normal inspection Neurological Exam Neurological exam: Present alert and oriented X3 Skin Skin exam: Present intact and warm OBJ DATA Labs CBC & Chem 7: 06/05/21 05:36 06/05/21 05:36 Labs: Abnormal Lab Results 06/05/21 06/05/21 06/05/21 05:54 05:36 05:36 RBC Hgb Hct MCV 100.5 H Plt Count MPV 12.8 H Neut % (Auto) 83.0 H Lymph % (Auto) 6.4 L Lymph # (Auto) 0.67 L Absolute Neutrophils 8.67 H Potassium Chloride Carbon Dioxide Anion Gap BUN Creatinine 0.5 L Glucose 125 H Uric Acid Phosphorus AST 63 H ALT 69 H Lactate Dehydrogenase Total Protein Globulin Prealbumin 14.6 L 06/04/21 06/03/21 06/03/21 05:20 07:14 07:13 RBC Hgb Hct MCV 101.5 H Plt Count 113 L MPV 12.2 H Neut % (Auto) 79.6 H Lymph % (Auto) 7.4 L Lymph # (Auto) 0.80 L Absolute Neutrophils 8.57 H Potassium 3.2 L Chloride 94 L Carbon Dioxide 36 H Anion Gap 7.0 L 5.0 L BUN 7 L 4 L Creatinine 0.5 L 0.5 L Glucose 137 H 144 H Uric Acid 1.3 L 2.0 L Phosphorus 1.9 L AST 54 H 46 H ALT 48 H Lactate Dehydrogenase 293 H 287 H Total Protein 5.5 L 5.5 L Globulin 1.8 L 1.9 L Prealbumin 06/03/21 06/02/21 05:08 13:38 RBC 3.35 L Hgb 10.6 L Hct 34.0 L MCV 101.5 H Plt Count 108 L MPV 12.8 H Neut % (Auto) 81.4 H Lymph % (Auto) 5.5 L Lymph # (Auto) 0.53 L Absolute Neutrophils Potassium 2.9 L* Chloride 90 L Carbon Dioxide 39 H Anion Gap BUN 6 L Creatinine 0.4 L Glucose 138 H Uric Acid Phosphorus 1.8 L AST 42 H ALT Lactate Dehydrogenase 284 H Total Protein 5.5 L Globulin 1.8 L Prealbumin 11.7 L Meds: Medications Acetaminophen (Acetaminophen 325 Mg Tablet) 650 mg PO Q6HP PRN; Protocol PRN Reason: Per Pain Protocol/Fever > 101 Last Admin: 06/04/21 20:08 Dose: 650 mg Documented by: Hydrocodone Bitart/Acetaminophen (Hydrocodone/Apap 5/325mg Tablet) 1 tab PO Q4HP PRN; Protocol PRN Reason: Per Pain Protocol Last Admin: 05/28/21 10:36 Dose: 1 tab Documented by: Benzocaine (Benzocaine 1 [place] Bottle) 1 spray TOPICAL PRN PRN PRN Reason: Sore Throat Last Admin: 06/04/21 00:00 Dose: 1 spray Documented by: Diagnostic Test (Pha) (Accu-Chek 1 Each Strip) 1 each FS ACHS [facility] Last Admin: 06/05/21 07:16 Dose: 1 each Documented by: Docusate Sodium (Docusate Sodium 100 Mg Capsule) 100 mg PO BID [facility] Last Admin: 06/05/21 08:33 Dose: 100 mg Documented by: Enoxaparin Sodium (Enoxaparin 40 Mg/0.4 Ml Syringe) 40 mg SQ DAILY [facility] Last Admin: 06/05/21 08:33 Dose: 40 mg Documented by: Heparin Sodium (Porcine) (Heparin Flush 10 Units/Ml 5 Ml Syringe) 2 ml IV Q12 [facility] Last Admin: 06/05/21 08:33 Dose: 2 ml Documented by: Hydralazine HCl (Hydralazine 20 Mg/Ml Vial) 0 mg IV Q2HP PRN PRN Reason: Hypertension Hydromorphone HCl (Hydromorphone 0.5 Mg/0.5 Ml Syringe) 0.5 mg IV Q2HP PRN; Protocol PRN Reason: Per Pain Protocol Last Admin: 05/28/21 20:28 Dose: 0.5 mg Documented by: Fat Emulsion Intravenous 250 (ml/ Premix) 250 mls @ 25 mls/hr IV Q48@1600 [facility] Last Infusion: 06/05/21 02:19 Dose: Infused Documented by: Calcium Gluconate 10 meq/Magnesium Sulfate 16.24 meq/Sodium Chloride 40 meq/Potassium Chloride 80 meq/Potassium Phosphate 100 meq/Amino Acids 2,098.2326 mls @ 60 mls/hr IV Q24H [facility] Last Admin: 06/04/21 11:55 Dose: 60 mls/hr Documented by: Potassium Chloride/Dextrose/Sod Cl (Dextrose 5%-1/2ns W/20meq Kcl) 1,000 mls @ 10 mls/hr IV .Q24H [facility] Last Admin: 06/05/21 03:15 Dose: 10 mls/hr Documented by: Insulin Human Lispro (Insulin Lispro 1 Unit/0.01 Ml Unit) 0 unit SQ ACHS [facility]; Protocol Last Admin: 06/05/21 07:17 Dose: Not Given Documented by: Lisinopril (Lisinopril 20 Mg Tablet) 20 mg PO DAILY [facility] Last Admin: 06/05/21 08:33 Dose: 20 mg Documented by: Lorazepam (Lorazepam 2 Mg/Ml Vial) 0.5 mg IV Q6HP PRN PRN Reason: ANXIETY/SEDATION Last Admin: 06/04/21 20:49 Dose: 0.5 mg Documented by: Ondansetron HCl (Ondansetron 4 Mg/2 Ml Vial) 4 mg IV Q6HP PRN PRN Reason: Nausea And Vomiting Last Admin: 05/31/21 10:41 Dose: 4 mg Documented by: Fluticasone- Umeclidin-Vilanter [ Trelegy Ellipta] Inhaler 1 dose INH Q24H [facility] Last Admin: 06/05/21 08:35 Dose: 1 dose Documented by: Senna (Sennosides 1 Tablet) 2 tab PO HS [facility] Last Admin: 06/04/21 20:08 Dose: 2 tab Documented by: Sodium Chloride (0.9 % Sodium Chloride 10 Ml Syringe) 10 ml IV Q8 [facility] Last Admin: 06/05/21 05:35 Dose: Not Given Documented by: Sodium Chloride (0.9 % Sodium Chloride 10 Ml Syringe) 10 ml IV UD PRN PRN Reason: FLUSH Sodium Chloride (0.9 % Sodium Chloride 10 Ml Syringe) 10 ml IV Q12 [facility] Last Admin: 06/04/21 20:09 Dose: Not Given Documented by: A/P Assessment and plan (1) Small bowel obstruction: Status: Acute (2) COPD (chronic obstructive pulmonary disease): Status: Acute Qualifiers: COPD type: emphysema Emphysema type: unspecified Qualified Code(s): J43.9 - Emphysema, unspecified (3) HTN (hypertension): Status: Chronic Comment: Well-controlled at rest Continue lisinopril 20 mg daily Low-sodium diet Qualifiers: Hypertension type: essential hypertension Qualified Code(s): I10 - Essential (primary) hypertension Narrative A/P Narrative: Assessment and Plans: 1. Small bowel obstruction: Inpatient med surg Consulting general surgeons Dr. Almaguer and Dr. Schmidt, recs. appreciated TPN NG tube, currently clamped Clear liquid diet Serial abdominal imaging as seen fit by surgeons [place] PRN moderate pain Dilaudid IV PRN severe pain Zofran IV PRN nausea vomiting 2. Stable COPD: Supplemental oxygen therapy, currently at 2.5L/min, baseline Trelegy Ellipta DuoNEB NEB PRN wheezing 3. Essential HTN: Currently normotensive Continue Lisinopril GI ppx: not currently indicated DVT ppx: Lovenox Code status: Full Prognosis: stable Disposition: inpatient med surg Time Spent With Patient Time: Total time spent is greater than 50% in coordination of care (as documented) at patient's floor/unit and/or counseling patient: Total time spent with greater than 50% in coordination of care (as documented) at patient's floor/unit and/or counseling patient:: 25 - 35 minutes QUALITY VTE Deep Vein Thrombosis/Pulmonary Embolism Present on Admission: No
[2021-06-05] MEDS ORDERED: MAGNESIUM SULFATE IV SCH (12:00)
[2021-06-05] MEDS ORDERED: [UNRECOGNIZED DRUG - OTHER] IV SCH (12:00)
[2021-06-05] MEDS ORDERED: SODIUM CHLORIDE IV SCH (12:00)
[2021-06-05] MEDS ORDERED: CALCIUM GLUCONATE IV SCH (12:00)
[2021-06-05] MEDS: LORazepam 2 MG/ML VIAL IV PRN (12:48)
[2021-06-05] MEDS: IPRATROPIUM/ALBUTEROL 3 ML AMPUL.NEB NEB PRN ×2 (12:49→19:36)
[2021-06-05] MEDS ORDERED: FUROSEMIDE 20 MG/2 ML VIAL IV ONE (13:02)
--- NOTE | 2021-06-05 13:36 | XRay Report ---
INDICATION: sob TECHNIQUE: AP portable upright chest x-ray COMPARISON: Previous examination dated 06/02/2019 FINDINGS:Left-sided PICC line with its tip in the superior vena cava just distal to the junction with the brachiocephalic vein. There is an esophagogastric tube in the stomach. The sidehole is been advanced to approximately the gastroesophageal junction Lungs:Lungs are negative. No focal pulmonary parenchymal infiltrate or mass Heart, vascular:No significant cardiomegaly. Pulmonary vascularity is normal. No pulmonary edema or pulmonary congestion Mediastinum, too:No mediastinal widening. No hilar mass Pleura:No pleural fluid. No pleural-based mass or calcification Skeletal:Negative. IMPRESSION: Negative AP chest x-ray. No acute or focal abnormality Interpreted and Authenticated by: Darell Milner 06/05/21
[2021-06-05] MEDS: BENZOCAINE 1 SPRAY BOTTLE TOPICAL PRN (13:44)
[2021-06-05] MEDS: BENZOCAINE/MENTHOL 1 LOZENGE PO PRN (19:49)
[2021-06-05] MEDS ORDERED: BENZOCAINE/MENTHOL 1 LOZENGE PO ONE (19:56)
[2021-06-05] MEDS ORDERED: LORazepam 0.5 MG TABLET PO PRN (20:10)
[2021-06-05] MEDS: SENNOSIDES 1 TABLET PO SCH (20:26)
[2021-06-05] MEDS ORDERED: LORazepam 0.5 MG TABLET ONE (20:33)
[2021-06-06] MEDS: ACETAMINOPHEN 325 MG TABLET PO PRN (03:41)
[2021-06-06] MEDS: 0.9 % SODIUM CHLORIDE 10 ML SYRINGE IV SCH ×5 (05:33→21:24)
[2021-06-06 07:01] LABS: Prealbumin 15.3 mg/dL (20.0-40.0)
[2021-06-06 07:06] LABS: ALT/SGPT 53 U/L (<40); AST/SGOT 36 U/L (<32); Albumin 3.7 gm/dL (3.2-5.2); Albumin/Globulin Ratio 1.9 (1.0-2.3); Alkaline Phosphatase 50 U/L (39-117); Bilirubin,Total 0.3 mg/dL (0.1-1.0); Blood Urea Nitrogen 19 mg/dL (8-23); Carbon Dioxide 28 mmol/L (22-30); Chloride 99 mmol/L (96-108); Glomerular Filtration Rate 98; Glucose 131 mg/dL (70-105); Phosphorous 2.7 mg/dL (2.5-4.5)
[2021-06-06 07:16] LABS: Basophils # (Auto) 0.03 K/mcL (0.00-0.30); Basophils % (Auto) 0.3 % (0.0-2.0); Eosinophils # (Auto) 0.13 K/mcL (0.00-0.70); Eosinophils % (Auto) 1.1 % (0.0-7.0); Hematocrit 36.3 % (34.1-44.9); Hemoglobin 11.2 g/dL (11.2-15.7); Lymphocytes # (Auto) 0.44 K/mcL (1.50-4.80); Lymphocytes % (Auto) 3.8 % (15.5-49.0); Mean Cell Volume 100.6 fL (80.0-100.0); Mean Corpuscular HGB Conc 30.9 g/dL (31.0-36.0); Mean Platelet Volume 13.4 fL (7.4-10.4); Monocytes # (Auto) 0.68 K/mcL (0.10-0.90); Monocytes % (Auto) 5.8 % (1.0-12.0); Platelet Count 161 K/mcL (140-440); RBC 3.61 M/mcL (3.59-5.38); Red Cell Distribution Width 13.2 % (11.5-14.5); WBC 11.7 K/mcL (4.5-11.0)
[2021-06-06] MEDS: INSULIN LISPRO 1 UNIT/0.01 ML UNIT SQ SCH ×4 (07:27→22:06)
[2021-06-06] MEDS: DOCUSATE SODIUM 100 MG CAPSULE PO SCH ×2 (08:26→21:13)
[2021-06-06] MEDS: Fluticasone-Umeclidin-Vilanter [Trelegy Ellipta] Inhaler INH SCH (08:26)
[2021-06-06] MEDS: LISINOPRIL 20 MG TABLET PO SCH (08:26)
[2021-06-06] MEDS: ENOXAPARIN 40 MG/0.4 ML SYRINGE SQ SCH (08:27)
[2021-06-06] MEDS: LORazepam 0.5 MG TABLET PO PRN ×3 (09:27→21:59)
--- NOTE | 2021-06-06 09:44 | General Surgery Progress Note ---
SUBJECTIVE Subjective Patient information: Note initiated : 06/06/21 at 9:39 am Service Date, if different from initiated Date: [] Patient: Georgina Isaacs 81 y/o F admitted on 05/27/21 for Abdominal pain. Chief Complaint: [] Principal diagnosis: SBO Interval history: Patient with NG tube clamped since Monday afternoon, no nausea, vomiting fevers or chills. She is had mild return of bowel movement, plain film yesterday without evidence of bowel obstruction. Constitutional Vitals: Vital Signs Temp Pulse Resp BP Pulse Ox 98.8 F 102 H 22 134/76 97 06/06/21 07:56 06/06/21 07:56 06/06/21 07:56 06/06/21 07:56 06/06/21 07:56 Period Temp Pulse Resp BP Sys/Helm Pulse Ox Last 24 Hr 97.3 F-98.8 F 90-114 20-30 119-137/71-95 92-98 Intake and Output 06/05/21 06/06/21 06/06/21 21:59 05:59 13:59 Intake Total 92 450 Output Total 750 651 250 Balance -658 -201 -250 Weight 101 lb 12.8 oz Intake & Output: Intake & Output 06/05/21 06/06/21 06/06/21 21:59 05:59 13:59 Intake Total 92 450 Output Total 750 651 250 Balance -658 -201 -250 Weight 101 lb 12.8 oz Intake: IV 92 Dextrose 5%-1/2Ns W/20Meq KCl 1 92 ,000 ml @ 10 mls/hr IV .Q24H [facility] Rx#:[id number] Oral 450 Tube Feeding 0 Output: Void Amount 300 200 250 # of times incontinent of urine 1 Urine/Stool Mix 450 300 Stool 150 Other: Urine Appearance Clear Clear Urine Color Bright Yellow Bright Yellow Stool Size Small Stool Color Brown Brown Stool Consistency Watery Watery General appearance: cooperative and no acute distress A/P Assessment and plan (1) Small bowel obstruction: Status: Acute Plan Okay to DC NG tube. Sips of clears. Time Spent With Patient Time: Total time spent is greater than 50% in coordination of care (as documented) at patient's floor/unit and/or counseling patient:
[2021-06-06] MEDS: BENZOCAINE/MENTHOL 1 LOZENGE PO PRN (10:57)
--- NOTE | 2021-06-06 10:58 | Internal Med Progress Note ---
SUBJECTIVE Subjective Patient information: Note initiated : 06/06/21 at 10:56 am Service Date, if different from initiated Date: [] Patient: Georgina Isaacs 81 y/o F admitted on 05/27/21 for Abdominal pain. Chief Complaint: [] Principal diagnosis: SBO Interval history: Ms. Isaacs is a 81 year old female with a history of partial colectomy, hysterectomy, oxygen dependent COPD, hypertension who presented to the emergency department for abdominal pain was found to have a small bowel obstruction on CT scan showing a transitional point in the right lower quadrant. General surgery recommended that the patient be transferred to a higher level of care, the emergency room department provider consulted with [facility] however transfer was refused at that facility. The patient did not want to transfer out of the [facility], instead wanted to try conservative management at [facility]. The concern is the patient's severe oxygen dependent COPD, if she required surgery it is unlikely we would be able to extubate the patient after surgery leading to prolonged ventilator weaning and possible requirement for tracheostomy. With the understanding that we would not provide operative intervention at [place] instead only conservative management, in keeping with the patient's wishes to remain in the [facility] medicine agreed to admit the patient for conservative management of the small bowel obstruction. 05/29 Passing gas, NG tube suctioned 200 mL, SBO likely beginning to resolve. Surgery following, on Zosyn. 05/30 Passing more gas today and no bowel movement yet. Abdominal x-ray showed mechanical small bowel obstruction, no significant interval change since 05/28/2021. 05/31 Yesterday abdominal x-ray no improvement. Patient did states she had a BM this morning. NG tube in place with significant output. Small bowel follow-through pending 06/01 Patient states she is feeling okay this morning. No worse. She says she had a small bowel movement last night but per nursing note there is no bowel movements. Small bowel follow-through showed high-grade small bowel obstruction. Will await plan once surgery discussion with patient family. 06/02 Patient reports having several moderate BMs overnight and this morning. NG output seems to be better. TPN ordered for today. 06/03 Patient states she is feeling okay. Says she had several BMs overnight. No nausea or vomiting. NG tube still putting out fluid. 06/04 Patient says she had passed a lot of gas lately. No nausea vomiting or abdominal abdominal pain. 06/05: Patient had a bowel movement earlier this morning. TPN clamped. Continue TPN. On clear liquid diet. Denies any nausea or vomiting. Denies abdominal pain. On 2.5L/min oxygen, denies shortness of breath, cough, or respiratory wheezing. 06/06: Patient had multiple bowel movements overnight. Still on TPN. On clear liquid diet. Denies any nausea or vomiting. Denies abdominal pain. On 3L/min oxygen, denies shortness of breath, cough, or respiratory wheezing. d/c NG tube according to Dr. Schmidt. Family would like patient to go to SNF for 1-2 week upon hospital discharge, will talk to assistant case manager tomorrow. Constitutional Vitals: Vital Signs Temp Pulse Resp BP Pulse Ox 37.1 C 102 H 22 134/76 97 06/06/21 07:56 06/06/21 07:56 06/06/21 07:56 06/06/21 07:56 06/06/21 07:56 Period Temp Pulse Resp BP Sys/Helm Pulse Ox Last 24 Hr 36.3 C-37.1 C 90-114 20-30 119-137/71-95 92-98 Intake and Output 06/05/21 06/06/21 06/06/21 21:59 05:59 13:59 Intake Total 92 450 Output Total 750 651 250 Balance -658 -201 -250 Weight 46.176 kg Intake & Output: Intake & Output 06/05/21 06/06/21 06/06/21 21:59 05:59 13:59 Intake Total 92 450 Output Total 750 651 250 Balance -658 -201 -250 Weight 46.176 kg Intake: IV 92 Dextrose 5%-1/2Ns W/20Meq KCl 1 92 ,000 ml @ 10 mls/hr IV .Q24H [facility] Rx#:[id number] Oral 450 Tube Feeding 0 Output: Void Amount 300 200 250 # of times incontinent of urine 1 Urine/Stool Mix 450 300 Stool 150 Other: Urine Appearance Clear Clear Urine Color Bright Yellow Bright Yellow Stool Size Small Stool Color Brown Brown Stool Consistency Watery Watery General appearance: cooperative, no acute distress and thin Head Head exam: Present atraumatic and normal inspection Eye Eye exam: Present normal appearance ENT ENT exam: Present mucous membranes moist, normal exam and normal external ear exam Additional comments: NG tube and nasal cannula in place Neck Neck exam: Present normal inspection Respiratory Respiratory exam: Present decreased breath sounds Cardiovascular Cardiovascular exam: Present normal rate and rhythm GI/Abdominal GI/Abdominal exam: Present normal bowel sounds Back Exam Back exam: Present normal inspection Neurological Exam Neurological exam: Present alert and oriented X3 Skin Skin exam: Present intact and warm OBJ DATA Labs CBC & Chem 7: 06/06/21 05:20 06/06/21 05:20 Labs: Abnormal Lab Results 06/06/21 06/06/21 06/06/21 05:20 05:20 05:20 WBC 11.7 H MCV 100.6 H MCHC 30.9 L MPV 13.4 H Neut % (Auto) 89.0 H Lymph % (Auto) 3.8 L Lymph # (Auto) 0.44 L Absolute Neutrophils 10.37 H POC pH POC pCO2 POC HCO3 POC Total CO2 POC ABG Base Excess Sodium 132 L Anion Gap 5.0 L BUN Creatinine 0.4 L Glucose 131 H Uric Acid AST 36 H ALT 53 H Lactate Dehydrogenase Total Protein 5.7 L Globulin 2.0 L Prealbumin 15.3 L 06/05/21 06/05/21 06/05/21 16:16 05:54 05:36 WBC MCV MCHC MPV Neut % (Auto) Lymph % (Auto) Lymph # (Auto) Absolute Neutrophils POC pH 7.32 L POC pCO2 62.3 H* POC HCO3 31.7 H POC Total CO2 34.0 H POC ABG Base Excess 6.0 H Sodium Anion Gap BUN Creatinine 0.5 L Glucose 125 H Uric Acid AST 63 H ALT 69 H Lactate Dehydrogenase Total Protein Globulin Prealbumin 14.6 L 06/05/21 06/04/21 05:36 05:20 WBC MCV 100.5 H MCHC MPV 12.8 H Neut % (Auto) 83.0 H Lymph % (Auto) 6.4 L Lymph # (Auto) 0.67 L Absolute Neutrophils 8.67 H POC pH POC pCO2 POC HCO3 POC Total CO2 POC ABG Base Excess Sodium Anion Gap 7.0 L BUN 7 L Creatinine 0.5 L Glucose 137 H Uric Acid 1.3 L AST 54 H ALT 48 H Lactate Dehydrogenase 293 H Total Protein 5.5 L Globulin 1.8 L Prealbumin Meds: Medications Acetaminophen (Acetaminophen 325 Mg Tablet) 650 mg PO Q6HP PRN; Protocol PRN Reason: Per Pain Protocol/Fever > 101 Last Admin: 06/06/21 03:41 Dose: 650 mg Documented by: Hydrocodone Bitart/Acetaminophen (Hydrocodone/Apap 5/325mg Tablet) 1 tab PO Q4HP PRN; Protocol PRN Reason: Per Pain Protocol Last Admin: 05/28/21 10:36 Dose: 1 tab Documented by: Albuterol/Ipratropium (Ipratropium/Albuterol 3 Ml Ampul.Neb) 3 ml NEB Q4HP PRN PRN Reason: Shortness Of Breath Last Admin: 06/05/21 19:36 Dose: 3 ml Documented by: Benzocaine (Benzocaine 1 [place] Bottle) 1 spray TOPICAL PRN PRN PRN Reason: Sore Throat Last Admin: 06/05/21 13:44 Dose: 1 spray Documented by: Diagnostic Test (Pha) (Accu-Chek 1 Each Strip) 1 each FS ACHS [facility] Last Admin: 06/06/21 07:24 Dose: 1 each Documented by: Docusate Sodium (Docusate Sodium 100 Mg Capsule) 100 mg PO BID [facility] Last Admin: 06/06/21 08:26 Dose: 100 mg Documented by: Enoxaparin Sodium (Enoxaparin 40 Mg/0.4 Ml Syringe) 40 mg SQ DAILY [facility] Last Admin: 06/06/21 08:27 Dose: 40 mg Documented by: Heparin Sodium (Porcine) (Heparin Flush 10 Units/Ml 5 Ml Syringe) 2 ml IV Q12 [facility] Last Admin: 06/06/21 08:26 Dose: 2 ml Documented by: Hydralazine HCl (Hydralazine 20 Mg/Ml Vial) 0 mg IV Q2HP PRN PRN Reason: Hypertension Hydromorphone HCl (Hydromorphone 0.5 Mg/0.5 Ml Syringe) 0.5 mg IV Q2HP PRN; Protocol PRN Reason: Per Pain Protocol Last Admin: 05/28/21 20:28 Dose: 0.5 mg Documented by: Fat Emulsion Intravenous 250 (ml/ Premix) 250 mls @ 25 mls/hr IV Q48@1600 [facility] Last Infusion: 06/05/21 02:19 Dose: Infused Documented by: Calcium Gluconate 10 meq/Magnesium Sulfate 16.24 meq/Sodium Chloride 40 meq/Potassium Chloride 80 meq/Potassium Phosphate 60 meq/Amino Acids 2,089.1417 mls @ 60 mls/hr IV Q24H [facility] Stop: 06/06/21 11:59 Last Admin: 06/05/21 12:13 Dose: 60 mls/hr Documented by: Calcium Gluconate 10 meq/Magnesium Sulfate 16.24 meq/Sodium Chloride 40 meq/Potassium Chloride 60 meq/Potassium Phosphate 60 meq/Amino Acids 2,079.1417 mls @ 60 mls/hr IV Q24H [facility] Insulin Human Lispro (Insulin Lispro 1 Unit/0.01 Ml Unit) 0 unit SQ ACHS [facility]; Protocol Last Admin: 06/06/21 07:27 Dose: Not Given Documented by: Lisinopril (Lisinopril 20 Mg Tablet) 20 mg PO DAILY [facility] Last Admin: 06/06/21 08:26 Dose: 20 mg Documented by: Lorazepam (Lorazepam 0.5 Mg Tablet) 0.5 mg PO Q6HP PRN PRN Reason: ANXIETY/SEDATION Last Admin: 06/06/21 09:27 Dose: 0.5 mg Documented by: Ondansetron HCl (Ondansetron 4 Mg/2 Ml Vial) 4 mg IV Q6HP PRN PRN Reason: Nausea And Vomiting Last Admin: 05/31/21 10:41 Dose: 4 mg Documented by: Fluticasone- Umeclidin-Vilanter [ Trelegy Ellipta] Inhaler 1 dose INH Q24H [facility] Last Admin: 06/06/21 08:26 Dose: 1 dose Documented by: Senna (Sennosides 1 Tablet) 2 tab PO HS [facility] Last Admin: 06/05/21 20:26 Dose: 2 tab Documented by: Sodium Chloride (0.9 % Sodium Chloride 10 Ml Syringe) 10 ml IV Q8 [facility] Last Admin: 06/06/21 05:33 Dose: 10 ml Documented by: Sodium Chloride (0.9 % Sodium Chloride 10 Ml Syringe) 10 ml IV UD PRN PRN Reason: FLUSH Sodium Chloride (0.9 % Sodium Chloride 10 Ml Syringe) 10 ml IV Q12 [facility] Last Admin: 06/06/21 08:26 Dose: 10 ml Documented by: Throat Lozenges (Benzocaine/Menthol 1 Lozenge) 1 lozenge PO PRN PRN PRN Reason: Sore Throat Last Admin: 06/05/21 19:49 Dose: 1 lozenge Documented by: A/P Assessment and plan (1) Small bowel obstruction: Status: Acute (2) COPD (chronic obstructive pulmonary disease): Status: Acute Qualifiers: COPD type: emphysema Emphysema type: unspecified Qualified Code(s): J43.9 - Emphysema, unspecified (3) HTN (hypertension): Status: Chronic Comment: Well-controlled at rest Continue lisinopril 20 mg daily Low-sodium diet Qualifiers: Hypertension type: essential hypertension Qualified Code(s): I10 - Essential (primary) hypertension Narrative A/P Narrative: Assessment and Plans: 1. Small bowel obstruction: Inpatient med surg Consulting general surgeons Dr. Almaguer and Dr. Schmidt, recs. appreciated Continue TPN d/c NG tube according to Dr. Schmidt Clear liquid diet Serial abdominal imaging as seen fit by surgeons [place] PRN moderate pain Dilaudid IV PRN severe pain Zofran IV PRN nausea vomiting 2. Stable COPD: Supplemental oxygen therapy, currently at 3L/min, baseline Trelegy Ellipta DuoNEB NEB PRN wheezing 3. Essential HTN: Currently normotensive Continue Lisinopril GI ppx: not currently indicated DVT ppx: Lovenox Code status: Full Prognosis: stable Disposition: inpatient med surg; Family would like patient to go to SNF for 1-2 week upon hospital discharge, will talk to assistant case manager tomorrow Time Spent With Patient Time: Total time spent is greater than 50% in coordination of care (as documented) at patient's floor/unit and/or counseling patient: Total time spent with greater than 50% in coordination of care (as documented) at patient's floor/unit and/or counseling patient:: 25 - 35 minutes QUALITY VTE Deep Vein Thrombosis/Pulmonary Embolism Present on Admission: No
[2021-06-06] MEDS ORDERED: CALCIUM GLUCONATE IV SCH (12:00)
[2021-06-06] MEDS ORDERED: [UNRECOGNIZED DRUG - OTHER] IV SCH (12:00)
[2021-06-06] MEDS ORDERED: MAGNESIUM SULFATE IV SCH (12:00)
[2021-06-06] MEDS ORDERED: SODIUM CHLORIDE IV SCH (12:00)
[2021-06-06] MEDS: IPRATROPIUM/ALBUTEROL 3 ML AMPUL.NEB NEB PRN ×2 (13:05→19:00)
--- NOTE | 2021-06-06 15:24 | EKG ---
[facility] Test Date: 2021-06-05 Pat Name: Georgina Isaacs Department: [facility] Room: 129 Gender: Female [employer] Mail [employer]rier: : 1940 Requested By: Max Hough Order Number: [id number] Reading MD: Bobby Rodriguez Measurements Intervals [place] Rate: 113 P: 78 VA: 180 QRS: 80 QRSD: 124 T: 52 QT: 293 QTc: 402 Interpretive Statements Sinus tachycardia Electronically Signed On 06-06-2021 15:23:59 PDT by Bobby Rodriguez /[id number]/[id number]
[2021-06-06] MEDS: FAT EMULSION 20% 250 ML in PREMIX 1 BAG IV SCH (15:29)
[2021-06-06] MEDS: guaiFENesin 600 MG TAB.SR.12H PO PRN (15:36)
[2021-06-06] MEDS: SENNOSIDES 1 TABLET PO SCH (21:13)
[2021-06-06] MEDS: HYDROmorphone 0.5 MG/0.5 ML SYRINGE IV PRN (22:39)
[2021-06-07 07:35] LABS: Basophils # (Auto) 0.08 K/mcL (0.00-0.30); Basophils % (Auto) 0.2 % (0.0-2.0); Eosinophils # (Auto) 0.01 K/mcL (0.00-0.70); Eosinophils % (Auto) 0 % (0.0-7.0); Hematocrit 37.8 % (34.1-44.9); Hemoglobin 11.8 g/dL (11.2-15.7); Lymphocytes # (Auto) 0.55 K/mcL (1.50-4.80); Lymphocytes % (Auto) 1.6 % (15.5-49.0); Mean Cell Volume 101.3 fL (80.0-100.0); Mean Corpuscular HGB Conc 31.2 g/dL (31.0-36.0); Mean Platelet Volume 12.7 fL (7.4-10.4); Monocytes % (Auto) 4.5 % (1.0-12.0); Neutrophils % (Auto) 93.7 % (38.0-78.0); Platelet Count 190 K/mcL (140-440); RBC 3.73 M/mcL (3.59-5.38); Red Cell Distribution Width 12.8 % (11.5-14.5); WBC 33.7 K/mcL (4.5-11.0)
[2021-06-07 08:09] LABS: Phosphorous 2.4 mg/dL (2.5-4.5)
[2021-06-07] MEDS: DOCUSATE SODIUM 100 MG CAPSULE PO SCH ×2 (08:11→20:30)
[2021-06-07] MEDS: LISINOPRIL 20 MG TABLET PO SCH (08:12)
[2021-06-07] MEDS: ENOXAPARIN 40 MG/0.4 ML SYRINGE SQ SCH (08:12)
[2021-06-07] MEDS: 0.9 % SODIUM CHLORIDE 10 ML SYRINGE IV SCH ×2 (08:13→20:22)
[2021-06-07] MEDS: Fluticasone-Umeclidin-Vilanter [Trelegy Ellipta] Inhaler INH SCH (08:13)
[2021-06-07 08:40] LABS: Basophils # (Auto) 0.06 K/mcL (0.00-0.30); Basophils % (Auto) 0.2 % (0.0-2.0); Eosinophils # (Auto) 0 K/mcL (0.00-0.70); Eosinophils % (Auto) 0 % (0.0-7.0); Hematocrit 37.6 % (34.1-44.9); Hemoglobin 11.9 g/dL (11.2-15.7); Lymphocytes # (Auto) 0.39 K/mcL (1.50-4.80); Lymphocytes % (Auto) 1.2 % (15.5-49.0); Mean Cell Volume 100.8 fL (80.0-100.0); Mean Corpuscular HGB Conc 31.6 g/dL (31.0-36.0); Mean Platelet Volume 12.7 fL (7.4-10.4); Monocytes # (Auto) 1.24 K/mcL (0.10-0.90); Monocytes % (Auto) 3.7 % (1.0-12.0); Neutrophils % (Auto) 94.9 % (38.0-78.0); Platelet Count 198 K/mcL (140-440); RBC 3.73 M/mcL (3.59-5.38); Red Cell Distribution Width 12.9 % (11.5-14.5); WBC 33.1 K/mcL (4.5-11.0)
[2021-06-07 08:43] LABS: ALT/SGPT 60 U/L (<40); AST/SGOT 34 U/L (<32); Albumin 3.7 gm/dL (3.2-5.2); Albumin/Globulin Ratio 1.5 (1.0-2.3); Alkaline Phosphatase 59 U/L (39-117); Bilirubin,Total 0.3 mg/dL (0.1-1.0); Blood Urea Nitrogen 29 mg/dL (8-23); Calcium 9.4 mg/dL (8.6-10.4); Carbon Dioxide 28 mmol/L (22-30); Chloride 95 mmol/L (96-108); Globulin 2.4 gm/dL (2.2-3.7); Glomerular Filtration Rate 98; Glucose 154 mg/dL (70-105)
[2021-06-07] MEDS ORDERED: FUROSEMIDE 40 MG/4 ML VIAL IV ONE (08:43)
[2021-06-07] MEDS ORDERED: VANCOMYCIN PER PHARMACY IV SCH (08:44)
[2021-06-07] MEDS: LORazepam 0.5 MG TABLET PO PRN ×2 (09:12→20:21)
--- NOTE | 2021-06-07 09:22 | Internal Med Progress Note ---
SUBJECTIVE Subjective Patient information: Note initiated : 06/07/21 at 9:17 am Service Date, if different from initiated Date: [] Patient: Georgina Isaacs 81 y/o F admitted on 05/27/21 for Abdominal pain. Chief Complaint: [] Principal diagnosis: SBO Interval history: Ms. Isaacs is a 81 year old female with a history of partial colectomy, hysterectomy, oxygen dependent COPD, hypertension who presented to the emergency department for abdominal pain was found to have a small bowel obstruction on CT scan showing a transitional point in the right lower quadrant. General surgery recommended that the patient be transferred to a higher level of care, the emergency room department provider consulted with [facility] however transfer was refused at that facility. The patient did not want to transfer out of the [facility], instead wanted to try conservative management at [facility]. The concern is the patient's severe oxygen dependent COPD, if she required surgery it is unlikely we would be able to extubate the patient after surgery leading to prolonged ventilator weaning and possible requirement for tracheostomy. With the understanding that we would not provide operative intervention at [facility] instead only conservative management, in keeping with the patient's wishes to remain in the [facility] medicine agreed to admit the patient for conservative management of the small bowel obstruction. 05/29 Passing gas, NG tube suctioned 200 mL, SBO likely beginning to resolve. Surgery following, on Zosyn. 05/30 Passing more gas today and no bowel movement yet. Abdominal x-ray showed mechanical small bowel obstruction, no significant interval change since 05/28/2021. 05/31 Yesterday abdominal x-ray no improvement. Patient did states she had a BM this morning. NG tube in place with significant output. Small bowel follow-through pending 06/01 Patient states she is feeling okay this morning. No worse. She says she had a small bowel movement last night but per nursing note there is no bowel movements. Small bowel follow-through showed high-grade small bowel obstruction. Will await plan once surgery discussion with patient family. 06/02 Patient reports having several moderate BMs overnight and this morning. NG output seems to be better. TPN ordered for today. 06/03 Patient states she is feeling okay. Says she had several BMs overnight. No nausea or vomiting. NG tube still putting out fluid. 06/04 Patient says she had passed a lot of gas lately. No nausea vomiting or abdominal abdominal pain. 06/05: Patient had a bowel movement earlier this morning. TPN clamped. Continue TPN. On clear liquid diet. Denies any nausea or vomiting. Denies abdominal pain. On 2.5L/min oxygen, denies shortness of breath, cough, or respiratory wheezing. 06/06: Patient had multiple bowel movements overnight. Still on TPN. On clear liquid diet. Denies any nausea or vomiting. Denies abdominal pain. On 3L/min oxygen, denies shortness of breath, cough, or respiratory wheezing. d/c NG tube according to Dr. Schmidt. Family would like patient to go to SNF for 1-2 week upon hospital discharge, will talk to caser tomorrow. 06/07: Afebrile overnight. Bowel movement overnight. Current oxygen requirement 4 L/min. Patient has increasing degree of shortness of breath but denies cough or wheezing. She is complaining of anxiety. She denies any chest pain or abdominal pain or palpitations. WBC 33 this morning. Serum potassium level 5.9. We are going to repeat chest x-ray and KUB this morning to look for any signs of new infections or other complications. Start broad-spectrum antibiotics vancomycin and Zosyn. Lasix IV. Blood culture x2. Repeat chemistry at noon. Constitutional Vitals: Vital Signs Temp Pulse Resp BP Pulse Ox 36.4 C 102 H 26 H 117/57 94 06/07/21 08:00 06/07/21 08:52 06/07/21 08:52 06/07/21 08:52 06/07/21 08:52 Period Temp Pulse Resp BP Sys/Helm Pulse Ox Last 24 Hr 36.3 C-37.2 C 87-114 16-32 111-166/57-97 91-95 Intake and Output 06/06/21 06/07/21 06/07/21 21:59 05:59 13:59 Intake Total 600 600 100 Output Total 700 300 150 Balance -100 300 -50 Weight 45.87 kg Intake & Output: Intake & Output 06/06/21 06/07/21 06/07/21 21:59 05:59 13:59 Intake Total 600 600 100 Output Total 700 300 150 Balance -100 300 -50 Weight 45.87 kg Intake: IV 250 Intralipid 20% 250 ml In Premix 250 1 Bag @ 25 mls/hr IV Q48@1600 [facility] Rx#:[id number] Oral 360 350 100 GI Tube Flush 240 Output: Void Amount 350 300 150 Urine/Stool Mix 350 Other: Urine Color Straw General appearance: cooperative, mild distress and thin Head Head exam: Present atraumatic and normal inspection Eye Eye exam: Present normal appearance ENT ENT exam: Present mucous membranes moist, normal exam and normal external ear e xam Additional comments: Nasal cannula in place Neck Neck exam: Present normal inspection Respiratory Respiratory exam: Present decreased breath sounds and wheezes Cardiovascular Cardiovascular exam: Present tachycardia GI/Abdominal GI/Abdominal exam: Present normal bowel sounds Back Exam Back exam: Present normal inspection Neurological Exam Neurological exam: Present alert and oriented X3 Skin Skin exam: Present intact and warm OBJ DATA Labs CBC & Chem 7: 06/07/21 08:06 06/07/21 06:33 Labs: Abnormal Lab Results 06/07/21 06/07/21 06/07/21 08:06 06:33 06:33 WBC 33.1 H* 33.7 H* MCV 100.8 H 101.3 H MCHC MPV 12.7 H 12.7 H Neut % (Auto) 94.9 H 93.7 H Lymph % (Auto) 1.2 L 1.6 L Lymph # (Auto) 0.[address] [place] # (Auto) 1.24 H 1.50 H Absolute Neutrophils 31.41 H 31.55 H POC pH POC pCO2 POC HCO3 POC Total CO2 POC ABG Base Excess Sodium 128 L Potassium 5.9 H* Chloride 95 L Anion Gap 5.0 L BUN 29 H Creatinine 0.4 L Glucose 154 H Phosphorus 2.4 L AST 34 H ALT 60 H Total Protein Globulin Prealbumin 06/07/21 06/06/21 06/06/21 06:33 05:20 05:20 WBC 11.7 H MCV 100.6 H MCHC 30.9 L MPV 13.4 H Neut % (Auto) 89.0 H Lymph % (Auto) 3.8 L Lymph # (Auto) 0.[address] [place] # (Auto) Absolute Neutrophils 10.37 H POC pH POC pCO2 POC HCO3 POC Total CO2 POC ABG Base Excess Sodium 132 L Potassium Chloride Anion Gap 5.0 L BUN Creatinine 0.4 L Glucose 131 H Phosphorus AST 36 H ALT 53 H Total Protein 5.7 L Globulin 2.0 L Prealbumin 15.7 L 06/06/21 06/05/21 06/05/21 05:20 16:16 05:54 WBC MCV MCHC MPV Neut % (Auto) Lymph % (Auto) Lymph # (Auto) [place] # (Auto) Absolute Neutrophils POC pH 7.32 L POC pCO2 62.3 H* POC HCO3 31.7 H POC Total CO2 34.0 H POC ABG Base Excess 6.0 H Sodium Potassium Chloride Anion Gap BUN Creatinine Glucose Phosphorus AST ALT Total Protein Globulin Prealbumin 15.3 L 14.6 L 06/05/21 06/05/21 05:36 05:36 WBC MCV 100.5 H MCHC MPV 12.8 H Neut % (Auto) 83.0 H Lymph % (Auto) 6.4 L Lymph # (Auto) 0.[address] [place] # (Auto) Absolute Neutrophils 8.67 H POC pH POC pCO2 POC HCO3 POC Total CO2 POC ABG Base Excess Sodium Potassium Chloride Anion Gap BUN Creatinine 0.5 L Glucose 125 H Phosphorus AST 63 H ALT 69 H Total Protein Globulin Prealbumin Meds: Medications Acetaminophen (Acetaminophen 325 Mg Tablet) 650 mg PO Q6HP PRN; Protocol PRN Reason: Per Pain Protocol/Fever > 101 Last Admin: 06/06/21 03:41 Dose: 650 mg Documented by: Hydrocodone Bitart/Acetaminophen (Hydrocodone/Apap 5/325mg Tablet) 1 tab PO Q4HP PRN; Protocol PRN Reason: Per Pain Protocol Last Admin: 05/28/21 10:36 Dose: 1 tab Documented by: Albuterol/Ipratropium (Ipratropium/Albuterol 3 Ml Ampul.Neb) 3 ml NEB Q4HP PRN PRN Reason: Shortness Of Breath Last Admin: 06/06/21 19:00 Dose: 3 ml Documented by: Benzocaine (Benzocaine 1 Vancleve Bottle) 1 spray TOPICAL PRN PRN PRN Reason: Sore Throat Last Admin: 06/05/21 13:44 Dose: 1 spray Documented by: Docusate Sodium (Docusate Sodium 100 Mg Capsule) 100 mg PO BID [facility] Last Admin: 06/07/21 08:11 Dose: 100 mg Documented by: Enoxaparin Sodium (Enoxaparin 40 Mg/0.4 Ml Syringe) 40 mg SQ DAILY [facility] Last Admin: 06/07/21 08:12 Dose: 40 mg Documented by: Guaifenesin (Guaifenesin 600 Mg Tab.Sr.12h) 600 mg PO BIDP PRN PRN Reason: Congestion Last Admin: 06/06/21 15:36 Dose: 600 mg Documented by: Heparin Sodium (Porcine) (Heparin Flush 10 Units/Ml 5 Ml Syringe) 2 ml IV Q12 [facility] Last Admin: 06/07/21 08:12 Dose: 2 ml Documented by: Hydralazine HCl (Hydralazine 20 Mg/Ml Vial) 0 mg IV Q2HP PRN PRN Reason: Hypertension Last Admin: 06/06/21 21:13 Dose: 10 mg Documented by: Hydromorphone HCl (Hydromorphone 0.5 Mg/0.5 Ml Syringe) 0.5 mg IV Q2HP PRN; Protocol PRN Reason: Per Pain Protocol Last Admin: 06/06/21 22:39 Dose: 0.5 mg Documented by: Fat Emulsion Intravenous 250 (ml/ Premix) 250 mls @ 25 mls/hr IV Q48@1600 [facility] Last Infusion: 06/07/21 01:37 Dose: Infused Documented by: Calcium Gluconate 10 meq/Magnesium Sulfate 16.24 meq/Sodium Chloride 40 meq/Potassium Chloride 60 meq/Potassium Phosphate 60 meq/Amino Acids 2,079.1417 mls @ 60 mls/hr IV Q24H [facility] Last Admin: 06/06/21 13:09 Dose: 60 mls/hr Documented by: Piperacillin Sod/Tazobactam (Sod 3.375 gm/ Dextrose) 50 mls @ 100 mls/hr IV Q8H [facility]; Protocol Vancomycin HCl 1,000 mg/ (Sodium Chloride) 250 mls @ 250 mls/hr IV 1000 ONE Stop: 06/07/21 10:59 Vancomycin HCl 500 mg/ Sodium (Chloride) 100 mls @ 100 mls/hr IV Q24H [facility] Insulin Human Lispro (Insulin Lispro 1 Unit/0.01 Ml Unit) 0 unit SQ ACHS [facility]; Protocol Last Admin: 06/06/21 22:06 Dose: Not Given Documented by: Lisinopril (Lisinopril 20 Mg Tablet) 20 mg PO DAILY [facility] Last Admin: 06/07/21 08:12 Dose: 20 mg Documented by: Lorazepam (Lorazepam 0.5 Mg Tablet) 0.5 mg PO Q6HP PRN PRN Reason: ANXIETY/SEDATION Last Admin: 06/07/21 09:12 Dose: 0.5 mg Documented by: Ondansetron HCl (Ondansetron 4 Mg/2 Ml Vial) 4 mg IV Q6HP PRN PRN Reason: Nausea And Vomiting Last Admin: 05/31/21 10:41 Dose: 4 mg Documented by: Fluticasone- Umeclidin-Vilanter [ Trelegy Ellipta] Inhaler 1 dose INH Q24H [facility] Last Admin: 06/07/21 08:13 Dose: 1 dose Documented by: Senna (Sennosides 1 Tablet) 2 tab PO HS [facility] Last Admin: 06/06/21 21:13 Dose: 2 tab Documented by: Sodium Chloride (0.9 % Sodium Chloride 10 Ml Syringe) 10 ml IV UD PRN PRN Reason: FLUSH Sodium Chloride (0.9 % Sodium Chloride 10 Ml Syringe) 10 ml IV Q12 [facility] Last Admin: 06/07/21 08:13 Dose: 10 ml Documented by: Throat Lozenges (Benzocaine/Menthol 1 Lozenge) 1 lozenge PO PRN PRN PRN Reason: Sore Throat Last Admin: 06/06/21 10:57 Dose: 1 lozenge Documented by: Vancomycin HCl (Vancomycin Per Pharmacy) 1 order IV UD [facility]; Protocol A/P Assessment and plan (1) Small bowel obstruction: Status: Acute (2) COPD (chronic obstructive pulmonary disease): Status: Acute Qualifiers: COPD type: emphysema Emphysema type: unspecified Qualified Code(s): J43.9 - Emphysema, unspecified (3) HTN (hypertension): Status: Chronic Comment: Well-controlled at rest Continue lisinopril 20 mg daily Low-sodium diet Qualifiers: Hypertension type: essential hypertension Qualified Code(s): I10 - Essential (primary) hypertension (4) Hyperkalemia: Status: Acute Narrative A/P Narrative: Assessment and Plans: 1. Small bowel obstruction: Inpatient med surg Consulting general surgeons Dr. Almaguer and Dr. Schmidt, recs. appreciated Continue TPN d/c NG tube according to Dr. Schmidt NPO Serial abdominal imaging as seen fit by surgeons [place] PRN moderate pain Dilaudid IV PRN severe pain Zofran IV PRN nausea vomiting 2. h/o COPD, with worsening dyspnea: Supplemental oxygen therapy, currently at 4L/min Trelegy Ellipta DuoNEB NEB PRN wheezing CXR to look for infiltrates, pleural effusion, (tension)pneumothorax, etc Broad spectrum antibiotics Vancomycin and Zosyn Blood culture X2 3. Essential HTN: Currently normotensive d/c Lisinopril given hyperkalemia 4. Hyperkalemia: d/c Lisinopril given hyperkalemia Lasix 40mg IV once Repeat BMP at noon to trend serum potassium level GI ppx: not currently indicated DVT ppx: Lovenox Code status: Full Prognosis: guarded Disposition: inpatient med surg; Family would like patient to go to SNF for 1-2 week upon hospital discharge, will talk to caser tomorrow Time Spent With Patient Time: Total time spent is greater than 50% in coordination of care (as documented) at patient's floor/unit and/or counseling patient: Total time spent with greater than 50% in coordination of care (as documented) at patient's floor/unit and/or counseling patient:: 35 - 50 minutes QUALITY VTE Deep Vein Thrombosis/Pulmonary Embolism Present on Admission: No
--- NOTE | 2021-06-07 09:32 | XRay Report ---
CLINICAL INFORMATION: reevaluate bowel obstruction COMPARISON: None. FINDINGS: Few loops of mildly dilated small bowel central abdomen appreciated. The colon is relatively decompressed. Findings suggestive of partial distal small bowel obstruction. There is no free air or soft tissue mass. A cluster of four calcifications, ranging between eight and 17 mm calcifications, in the right upper quadrant represents a known multilobulated saccular right middle artery aneurysm seen on a prior CT from 05/27/2021. There is no free air, soft tissue mass IMPRESSION: Partial distal small bowel obstruction pattern. Calcified right renal artery aneurysm longtime stable Interpreted and Authenticated by: Darell Weber 06/07/21
--- NOTE | 2021-06-07 09:34 | XRay Report ---
CLINICAL INFORMATION: Chest pain COMPARISON: Portable chest 06/05/2021. Chest CT 11/24/2019 TECHNIQUE: Portable FINDINGS: The heart size, mediastinum and pulmonary vessels are unremarkable. Severe centrilobular emphysema is again noted. Moderate interstitial infiltrate has developed in the right base. There is a new small interstitial infiltrate left base. Left subclavian central catheter tip overlies the SVC in stable position. NG tube now out.. There are no effusions. The bones and soft tissues are within normal limits. IMPRESSION: Moderate interstitial infiltrate right base and small patchy infiltrate interstitial infiltrate in the left base. Suspect aspiration Severe centrilobular emphysema Interpreted and Authenticated by: Darell Weber 06/07/21
[2021-06-07] MEDS: PIPERACILLIN SODIUM/TAZOBACTAM 3.375 GM in DEXTROSE 5% IN WATER 50 ML IV SCH ×3 (09:35→21:57)
[2021-06-07] MEDS: INSULIN LISPRO 1 UNIT/0.01 ML UNIT SQ SCH ×4 (09:36→20:30)
[2021-06-07] MEDS ORDERED: VANCOMYCIN 1,000 MG in 0.9 % SODIUM CHLORIDE 250 ML IV ONE (10:00)
[2021-06-07] MEDS ORDERED: IOPAMIDOL 100 ML BOTTLE IV ONE (11:36)
--- NOTE | 2021-06-07 11:37 | General Surgery Progress Note ---
SUBJECTIVE Subjective Patient information: Note initiated : 06/07/21 at 8:29 am Service Date, if different from initiated Date: [] Patient: Georgina Isaacs 81 y/o F admitted on 05/27/21 for Abdominal pain. Chief Complaint: [] Appears SOB this am, struggling to breath, only able to talk in very short phrases. Denies abdominal pain, has not been vomiting and adamant she continues to pass gas, stool. NGT was apparently removed over the weekend Principal diagnosis: SBO Constitutional Vitals: Vital Signs Temp Pulse Resp BP Pulse Ox 97.5 F 102 H 26 H 117/57 94 06/07/21 08:00 06/07/21 08:52 06/07/21 08:52 06/07/21 08:52 06/07/21 08:52 Period Temp Pulse Resp BP Sys/Helm Pulse Ox Last 24 Hr 97.4 F-99 F 87-114 16-32 111-166/57-97 91-95 Intake and Output 06/06/21 06/07/21 06/07/21 21:59 05:59 13:59 Intake Total 600 600 150 Output Total 700 300 350 Balance -100 300 -200 Weight 101 lb 2 oz Intake & Output: Intake & Output 06/06/21 06/07/21 06/07/21 21:59 05:59 13:59 Intake Total 600 600 150 Output Total 700 300 350 Balance -100 300 -200 Weight 101 lb 2 oz Intake: IV 250 50 Intralipid 20% 250 ml In Premix 250 1 Bag @ 25 mls/hr IV Q48@1600 [facility] Rx#:[id number] Zosyn 3.375 gm In Dextrose 5% 50 in Water 50 ml @ 100 mls/hr IV Q8H [facility] Rx#:[id number] Oral 360 350 100 GI Tube Flush 240 Output: Void Amount 350 300 350 Urine/Stool Mix 350 Other: Percent of Meal Consumed 0% Urine Color Bright Yellow Urine Odor Normal Exam: appears awake and conversant but continues to have some apparent resp distress Respiratory Additional comments: labored breathing with decreased air movement GI/Abdominal Additional comments: belly seems soft and non tender, remains minimally distended A/P Assessment and plan (1) Small bowel obstruction: Assessment and plan: Prior SOB ? resolved - NGT was removed over weekend, patient felt to be doing well with diet at that time Does not look good this AM and seems to be a predominantly respiratory issue - check stat CXR and Abdominal plain films ? Acute event: PE, Aspiration vs Pneumonia, etc Its not clear if the SBO has fully resolved given some ongoing mild distension - will make NPO for now and check plain films but her abdomen seems overall benign Continue TPN and agree with addition of IV ABs for now Will discuss further with medicine team Status: Acute Time Spent With Patient Time: Total time spent is greater than 50% in coordination of care (as documented) at patient's floor/unit and/or counseling patient:
--- NOTE | 2021-06-07 11:57 | Cat Scan Report ---
CLINICAL INFORMATION: Dyspnea COMPARISON: Chest CT with contrast 11/24/2019 TECHNIQUE: ml of Isovue-370 were injected intravenously. Using SmartPrep to maximize pulmonary artery opacification, .625mm helical slices were obtained from the lung apices through the lung bases. Following reconstruction, 2.5 mm sagittal, coronal, and axial reformations were processed. The exam was reviewed at mediastinal, lung, and bone windows. The exam was performed using radiation dose optimization techniques including, but not limited to, automated exposure control, adjustment of the mA and/or kV according to patient size and use of iterative reconstruction technique. FINDINGS: Pulmonary parenchymal windows again show severe centrilobular emphysema featuring chronic bronchitis with elevated lung volumes and dilatation/wall thickening the bronchi. Multiple bullae nearly replace the upper lobes and also scattered throughout both lower and middle lobes. Scattered scarring is again seen in the periphery of both lungs. Moderate consolidated infiltrate in the posterior right lower lobe has increased and is superimposed upon underlying interstitial fibrosis. Small patchy infiltrate posterior peripheral left lower lobe is new. Suspect aspiration. Small right pleural effusion noted. Mediastinal windows show the pulmonary arteries are well-opacified - no evidence of embolus. Central pulmonary arteries are mildly enlarged: the main pulmonary diameter 3.3 cm. This is suggestive of pulmonary hypertension. The heart is normal in size and is only minimal soft plaque in the coronary arteries. Thoracic aorta is normal diameter with scattered fibrofatty calcific plaque. There is no adenopathy in the mediastinal, hilar or axillary region. The esophagus is grossly normal. 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 Thyroid is diminutive. Mild old compression fractures in the upper midthoracic spine are unchanged. Images of the superior abdomen show no abnormality. IMPRESSION: 1. No evidence of pulmonary embolism. 2. Severe centrilobular emphysema. Mild enlargement central pulmonary arteries is suggestive of associated pulmonary hypertension. 3. Moderate infiltrate posterior right lower lobe smaller. Posterior left lower lobe or small right pleural effusion. Suspect aspiration 4. 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
[2021-06-07] MEDS ORDERED: [UNRECOGNIZED DRUG - OTHER] IV SCH (12:00)
[2021-06-07] MEDS ORDERED: MAGNESIUM SULFATE IV SCH (12:00)
[2021-06-07] MEDS ORDERED: CALCIUM GLUCONATE IV SCH (12:00)
[2021-06-07] MEDS ORDERED: SODIUM PHOSPHATE IV SCH (12:00)
[2021-06-07 12:54] LABS: Blood Urea Nitrogen 29 mg/dL (8-23); Calcium 9.2 mg/dL (8.6-10.4); Carbon Dioxide 29 mmol/L (22-30); Chloride 92 mmol/L (96-108); Glomerular Filtration Rate 91; Glucose 119 mg/dL (70-105)
[2021-06-07] MEDS: SENNOSIDES 1 TABLET PO SCH (20:30)
[2021-06-08] MEDS: IPRATROPIUM/ALBUTEROL 3 ML AMPUL.NEB NEB PRN ×3 (02:10→19:07)
[2021-06-08] MEDS: INSULIN LISPRO 1 UNIT/0.01 ML UNIT SQ SCH ×4 (03:56→22:09)
[2021-06-08] MEDS: PIPERACILLIN SODIUM/TAZOBACTAM 3.375 GM in DEXTROSE 5% IN WATER 50 ML IV SCH ×3 (06:01→22:08)
[2021-06-08 07:46] LABS: Basophils # (Auto) 0.02 K/mcL (0.00-0.30); Basophils % (Auto) 0.1 % (0.0-2.0); Eosinophils # (Auto) 0.01 K/mcL (0.00-0.70); Eosinophils % (Auto) 0.1 % (0.0-7.0); Hematocrit 34.3 % (34.1-44.9); Hemoglobin 10.6 g/dL (11.2-15.7); Lymphocytes # (Auto) 0.31 K/mcL (1.50-4.80); Mean Cell Volume 101.2 fL (80.0-100.0); Mean Corpuscular HGB Conc 30.9 g/dL (31.0-36.0); Mean Platelet Volume 12.8 fL (7.4-10.4); Monocytes # (Auto) 0.71 K/mcL (0.10-0.90); Monocytes % (Auto) 4.5 % (1.0-12.0); Neutrophils % (Auto) 93.3 % (38.0-78.0); Platelet Count 178 K/mcL (140-440); RBC 3.39 M/mcL (3.59-5.38); WBC 15.6 K/mcL (4.5-11.0)
[2021-06-08] MEDS: DOCUSATE SODIUM 100 MG CAPSULE PO SCH ×2 (08:32→21:46)
[2021-06-08] MEDS: ENOXAPARIN 40 MG/0.4 ML SYRINGE SQ SCH (08:32)
[2021-06-08 08:33] LABS: ALT/SGPT 54 U/L (<40); AST/SGOT 35 U/L (<32); Albumin 3.2 gm/dL (3.2-5.2); Albumin/Globulin Ratio 1.4 (1.0-2.3); Alkaline Phosphatase 56 U/L (39-117); Bilirubin,Total 0.3 mg/dL (0.1-1.0); Blood Urea Nitrogen 32 mg/dL (8-23); Calcium 9.1 mg/dL (8.6-10.4); Carbon Dioxide 30 mmol/L (22-30); Chloride 91 mmol/L (96-108); Globulin 2.3 gm/dL (2.2-3.7); Glomerular Filtration Rate 91; Glucose 149 mg/dL (70-105); Phosphorous 2.3 mg/dL (2.5-4.5)
[2021-06-08] MEDS: Fluticasone-Umeclidin-Vilanter [Trelegy Ellipta] Inhaler INH SCH (08:36)
[2021-06-08] MEDS: 0.9 % SODIUM CHLORIDE 10 ML SYRINGE IV SCH ×2 (08:36→21:58)
[2021-06-08] MEDS ORDERED: VANCOMYCIN 500 MG in 0.9 % SODIUM CHLORIDE 100 ML IV SCH (10:00)
[2021-06-08] MEDS ORDERED: SODIUM PHOSPHATE IV SCH ×2 (12:00)
[2021-06-08] MEDS ORDERED: MAGNESIUM SULFATE IV SCH ×2 (12:00)
[2021-06-08] MEDS ORDERED: [UNRECOGNIZED DRUG - OTHER] IV SCH ×2 (12:00)
[2021-06-08] MEDS ORDERED: CALCIUM GLUCONATE IV SCH ×2 (12:00)
--- NOTE | 2021-06-08 12:18 | Internal Med Progress Note ---
SUBJECTIVE Subjective Patient information: Note initiated : 06/08/21 at 12:12 pm Service Date, if different from initiated Date: [] Patient: Georgina Isaacs 81 y/o F admitted on 05/27/21 for Abdominal pain. Chief Complaint: [] Principal diagnosis: SBO Interval history: Ms. Isaacs is a 81 year old female with a history of partial colectomy, hysterectomy, oxygen dependent COPD, hypertension who presented to the emergency department for abdominal pain was found to have a small bowel obstruction on CT scan showing a transitional point in the right lower quadrant. General surgery recommended that the patient be transferred to a higher level of care, the emergency room department provider consulted with [facility] however transfer was refused at that facility. The patient did not want to transfer out of the [facility], instead wanted to try conservative management at [facility]. The concern is the patient's severe oxygen dependent COPD, if she required surgery it is unlikely we would be able to extubate the patient after surgery leading to prolonged ventilator weaning and possible requirement for tracheostomy. With the understanding that we would not provide operative intervention at [place] instead only conservative management, in keeping with the patient's wishes to remain in the [facility] medicine agreed to admit the patient for conservative management of the small bowel obstruction. 05/29 Passing gas, NG tube suctioned 200 mL, SBO likely beginning to resolve. Surgery following, on Zosyn. 05/30 Passing more gas today and no bowel movement yet. Abdominal x-ray showed mechanical small bowel obstruction, no significant interval change since 05/28/2021. 05/31 Yesterday abdominal x-ray no improvement. Patient did states she had a BM this morning. NG tube in place with significant output. Small bowel follow-through pending 06/01 Patient states she is feeling okay this morning. No worse. She says she had a small bowel movement last night but per nursing note there is no bowel movements. Small bowel follow-through showed high-grade small bowel obstruction. Will await plan once surgery discussion with patient family. 06/02 Patient reports having several moderate BMs overnight and this morning. NG output seems to be better. TPN ordered for today. 06/03 Patient states she is feeling okay. Says she had several BMs overnight. No nausea or vomiting. NG tube still putting out fluid. 06/04 Patient says she had passed a lot of gas lately. No nausea vomiting or abdominal abdominal pain. 06/05: Patient had a bowel movement earlier this morning. TPN clamped. Continue TPN. On clear liquid diet. Denies any nausea or vomiting. Denies abdominal pain. On 2.5L/min oxygen, denies shortness of breath, cough, or respiratory wheezing. 06/06: Patient had multiple bowel movements overnight. Still on TPN. On clear liquid diet. Denies any nausea or vomiting. Denies abdominal pain. On 3L/min oxygen, denies shortness of breath, cough, or respiratory wheezing. d/c NG tube according to Dr. Schmidt. Family would like patient to go to SNF for 1-2 week upon hospital discharge, will talk to human services case manager tomorrow. 06/07: Afebrile overnight. Bowel movement overnight. Current oxygen requirement 4 L/min. Patient has increasing degree of shortness of breath but denies cough or wheezing. She is complaining of anxiety. She denies any chest pain or abdominal pain or palpitations. WBC 33 this morning. Serum potassium level 5.9. We are going to repeat chest x-ray and KUB this morning to look for any signs of new infections or other complications. Start broad-spectrum antibiotics vancomycin and Zosyn. Lasix IV. Blood culture x2. Repeat chemistry at noon. 06/08: On 4L/min oxygen. WBC 15.6. Seen by [facility], recs. level 4 dysphagia diet. Had one BM earlier today according to patient. c/o same degree of SOB. Minimal cough. P ositive for respiratory wheezing. Denies any fever or chills. Denies abdominal pain. Denies nausea or vomiting. MRSA screening negative-->d/c Vancomycin. Continue Zosyn. Continue supplemental oxygen. Level 4 dysphagia diet according to [facility]T recs. Continue TPN and general surgeon recs. Constitutional Vitals: Vital Signs Temp Pulse Resp BP Pulse Ox 36.7 C 96 H 20 129/81 94 06/08/21 08:00 06/08/21 08:38 06/08/21 08:38 06/08/21 08:00 06/08/21 08:38 Period Temp Pulse Resp BP Sys/Helm Pulse Ox Last 24 Hr 36.5 C-37.0 C 96-109 20-28 90-129/59-81 94-97 Intake and Output 06/07/21 06/08/21 06/08/21 21:59 05:59 13:59 Intake Total 50 50 50 Output Total 575 400 150 Balance -525 -350 -100 Weight 47.582 kg Intake & Output: Intake & Output 06/07/21 06/08/21 06/08/21 21:59 05:59 13:59 Intake Total 50 50 50 Output Total 575 400 150 Balance -525 -350 -100 Weight 47.582 kg Intake: IV 50 50 50 Zosyn 3.375 gm In Dextrose 5% 50 50 50 in Water 50 ml @ 100 mls/hr IV Q8H [facility] Rx#:[id number] Oral 0 Output: Void Amount 575 275 150 Urine/Stool Mix 125 Other: Urine Appearance Clear Clear Urine Color Bright Yellow Bright Yellow Urine Odor Normal General appearance: cooperative, mild distress and thin Head Head exam: Present atraumatic and normal inspection Eye Eye exam: Present normal appearance ENT ENT exam: Present mucous membranes moist, normal exam and normal external ear exam Additional comments: Nasal cannula in place Neck Neck exam: Present normal inspection Respiratory Respiratory exam: Present decreased breath sounds Cardiovascular Cardiovascular exam: Present normal rate and rhythm GI/Abdominal GI/Abdominal exam: Present normal bowel sounds Back Exam Back exam: Present normal inspection Neurological Exam Neurological exam: Present alert and oriented X3 Skin Skin exam: Present intact and warm OBJ DATA Labs CBC & Chem 7: 06/08/21 06:22 06/08/21 06:22 Labs: Abnormal Lab Results 06/08/21 06/08/21 06/07/21 06:22 06:22 11:49 WBC 15.6 H RBC 3.39 L Hgb 10.6 L MCV 101.2 H MCHC 30.9 L MPV 12.8 H Neut % (Auto) 93.3 H Lymph % (Auto) 2.0 L Lymph # (Auto) 0.31 L [place] # (Auto) Absolute Neutrophils 14.58 H POC pH POC pCO2 POC HCO3 POC Total CO2 POC ABG Base Excess Sodium 128 L 129 L Potassium 5.8 H Chloride 91 L 92 L Anion Gap 7.0 L BUN 32 H 29 H Creatinine 0.5 L 0.5 L Glucose 149 H 119 H Phosphorus 2.3 L AST 35 H ALT 54 H Total Protein 5.5 L Globulin Prealbumin 06/07/21 06/07/21 06/07/21 08:06 06:33 06:33 WBC 33.1 H* 33.7 H* RBC Hgb MCV 100.8 H 101.3 H MCHC MPV 12.7 H 12.7 H Neut % (Auto) 94.9 H 93.7 H Lymph % (Auto) 1.2 L 1.6 L Lymph # (Auto) 0.39 L 0.55 L [place] # (Auto) 1.24 H 1.50 H Absolute Neutrophils 31.41 H 31.55 H POC pH POC pCO2 POC HCO3 POC Total CO2 POC ABG Base Excess Sodium 128 L Potassium 5.9 H* Chloride 95 L Anion Gap 5.0 L BUN 29 H Creatinine 0.4 L Glucose 154 H Phosphorus 2.4 L AST 34 H ALT 60 H Total Protein Globulin Prealbumin 06/07/21 06/06/21 06/06/21 06:33 05:20 05:20 WBC 11.7 H RBC Hgb MCV 100.6 H MCHC 30.9 L MPV 13.4 H Neut % (Auto) 89.0 H Lymph % (Auto) 3.8 L Lymph # (Auto) 0.44 L [place] # (Auto) Absolute Neutrophils 10.37 H POC pH POC pCO2 POC HCO3 POC Total CO2 POC ABG Base Excess Sodium 132 L Potassium Chloride Anion Gap 5.0 L BUN Creatinine 0.4 L Glucose 131 H Phosphorus AST 36 H ALT 53 H Total Protein 5.7 L Globulin 2.0 L Prealbumin 15.7 L 06/06/21 06/05/21 05:20 16:16 WBC RBC Hgb MCV MCHC MPV Neut % (Auto) Lymph % (Auto) Lymph # (Auto) [place] # (Auto) Absolute Neutrophils POC pH 7.32 L POC pCO2 62.3 H* POC HCO3 31.7 H POC Total CO2 34.0 H POC ABG Base Excess 6.0 H Sodium Potassium Chloride Anion Gap BUN Creatinine Glucose Phosphorus AST ALT Total Protein Globulin Prealbumin 15.3 L Meds: Medications Acetaminophen (Acetaminophen 325 Mg Tablet) 650 mg PO Q6HP PRN; Protocol PRN Reason: Per Pain Protocol/Fever > 101 Last Admin: 06/06/21 03:41 Dose: 650 mg Documented by: Hydrocodone Bitart/Acetaminophen (Hydrocodone/Apap 5/325mg Tablet) 1 tab PO Q4HP PRN; Protocol PRN Reason: Per Pain Protocol Last Admin: 05/28/21 10:36 Dose: 1 tab Documented by: Albuterol/Ipratropium (Ipratropium/Albuterol 3 Ml Ampul.Neb) 3 ml NEB Q4HP PRN PRN Reason: Shortness Of Breath Last Admin: 06/08/21 08:38 Dose: 3 ml Documented by: Benzocaine (Benzocaine 1 [place] Bottle) 1 spray TOPICAL PRN PRN PRN Reason: Sore Throat Last Admin: 06/05/21 13:44 Dose: 1 spray Documented by: Diagnostic Test (Pha) (Accu-Chek 1 Each Strip) 1 each FS Q6H [facility] Last Admin: 06/08/21 09:24 Dose: 1 each Documented by: Docusate Sodium (Docusate Sodium 100 Mg Capsule) 100 mg PO BID [facility] Last Admin: 06/08/21 08:32 Dose: 100 mg Documented by: Enoxaparin Sodium (Enoxaparin 40 Mg/0.4 Ml Syringe) 40 mg SQ DAILY [facility] Last Admin: 06/08/21 08:32 Dose: 40 mg Documented by: Guaifenesin (Guaifenesin 600 Mg Tab.Sr.12h) 600 mg PO BIDP PRN PRN Reason: Congestion Last Admin: 06/06/21 15:36 Dose: 600 mg Documented by: Heparin Sodium (Porcine) (Heparin Flush 10 Units/Ml 5 Ml Syringe) 2 ml IV Q12 [facility] Last Admin: 06/08/21 08:32 Dose: 2 ml Documented by: Hydralazine HCl (Hydralazine 20 Mg/Ml Vial) 0 mg IV Q2HP PRN PRN Reason: Hypertension Last Admin: 06/06/21 21:13 Dose: 10 mg Documented by: Hydromorphone HCl (Hydromorphone 0.5 Mg/0.5 Ml Syringe) 0.5 mg IV Q2HP PRN; Protocol PRN Reason: Per Pain Protocol Last Admin: 06/06/21 22:39 Dose: 0.5 mg Documented by: Fat Emulsion Intravenous 250 (ml/ Premix) 250 mls @ 25 mls/hr IV Q48@1600 [facility] Last Infusion: 06/07/21 01:37 Dose: Infused Documented by: Piperacillin Sod/Tazobactam (Sod 3.375 gm/ Dextrose) 50 mls @ 100 mls/hr IV Q8H [facility]; Protocol Last Infusion: 06/08/21 07:03 Dose: Infused Documented by: Calcium Gluconate 5 meq/Magnesium Sulfate 16.24 meq/Sodium Phosphate 30 mmol/Sodium Chloride 40 meq/Potassium Chloride 20 meq/Multivitamins/Minerals 10 ml/Amino Acids 2,054.7526 mls @ 60 mls/hr IV Q24H [facility] Insulin Human Lispro (Insulin Lispro 1 Unit/0.01 Ml Unit) 0 unit SQ Q6H [facility]; Protocol Last Admin: 06/08/21 09:25 Dose: Not Given Documented by: Lorazepam (Lorazepam 0.5 Mg Tablet) 0.5 mg PO Q6HP PRN PRN Reason: ANXIETY/SEDATION Last Admin: 06/07/21 20:21 Dose: 0.5 mg Documented by: Ondansetron HCl (Ondansetron 4 Mg/2 Ml Vial) 4 mg IV Q6HP PRN PRN Reason: Nausea And Vomiting Last Admin: 05/31/21 10:41 Dose: 4 mg Documented by: Fluticasone- Umeclidin-Vilanter [ Trelegy Ellipta] Inhaler 1 dose INH Q24H [facility] Last Admin: 06/08/21 08:36 Dose: 1 dose Documented by: Senna (Sennosides 1 Tablet) 2 tab PO HS [facility] Last Admin: 06/07/21 20:30 Dose: Not Given Documented by: Sodium Chloride (0.9 % Sodium Chloride 10 Ml Syringe) 10 ml IV UD PRN PRN Reason: FLUSH Last Admin: 06/08/21 06:02 Dose: 10 ml Documented by: Sodium Chloride (0.9 % Sodium Chloride 10 Ml Syringe) 10 ml IV Q12 [facility] Last Admin: 06/08/21 08:36 Dose: 10 ml Documented by: Throat Lozenges (Benzocaine/Menthol 1 Lozenge) 1 lozenge PO PRN PRN PRN Reason: Sore Throat Last Admin: 06/06/21 10:57 Dose: 1 lozenge Documented by: A/P Assessment and plan (1) Small bowel obstruction: Status: Acute (2) COPD (chronic obstructive pulmonary disease): Status: Acute Qualifiers: COPD type: emphysema Emphysema type: unspecified Qualified Code(s): J43.9 - Emphysema, unspecified (3) HTN (hypertension): Status: Chronic Comment: Well-controlled at rest Continue lisinopril 20 mg daily Low-sodium diet Qualifiers: Hypertension type: essential hypertension Qualified Code(s): I10 - Essential (primary) hypertension (4) Hyperkalemia: Status: Acute (5) Aspiration pneumonia: Status: Acute Narrative A/P Narrative: Assessment and Plans: 1. Small bowel obstruction: Inpatient med surg Consulting general surgeons Dr. Almaguer and Dr. Schmidt, recs. appreciated Continue TPN [facility]T-->level 4 dysphagia diet Serial abdominal imaging as seen fit by surgeons [place] PRN moderate pain Dilaudid IV PRN severe pain Zofran IV PRN nausea vomiting 2. h/o COPD, with worsening dyspnea, complicated by aspiration pneumonia: Supplemental oxygen therapy, currently at 4L/min Trelegy Ellipta DuoNEB NEB PRN wheezing CXR to look for infiltrates, pleural effusion, (tension)pneumothorax, etc MRSA screening negative, d/c Vancomycin Continue Zosyn Blood culture X2, no growth to date 3. Essential HTN: Currently normotensive d/c Lisinopril given hyperkalemia 4. Hyperkalemia: RESOLVED d/c Lisinopril given hyperkalemia s/p Lasix CMP daily to trend serum potassium level GI ppx: not currently indicated DVT ppx: Lovenox Code status: Full Prognosis: guarded Disposition: inpatient med surg; Family would like patient to go to SNF for 1-2 week upon hospital discharge, will talk to human services case manager tomorrow Time Spent With Patient Time: Total time spent is greater than 50% in coordination of care (as documented) at patient's floor/unit and/or counseling patient: Total time spent with greater than 50% in coordination of care (as documented) at patient's floor/unit and/or counseling patient:: 25 - 35 minutes QUALITY VTE Deep Vein Thrombosis/Pulmonary Embolism Present on Admission: No
[2021-06-08] MEDS: FAT EMULSION 20% 250 ML in PREMIX 1 BAG IV SCH (15:20)
--- NOTE | 2021-06-08 20:03 | General Surgery Progress Note ---
SUBJECTIVE Subjective Patient information: Note initiated : 06/08/21 at 12:30 pm Service Date, if different from initiated Date: [] Patient: Georgina Isaacs 81 y/o F admitted on 05/27/21 for Abdominal pain. Chief Complaint: [] Has improved from a pulmonary standpoint since yesterday and on current ABs. Tolerating a diet and denies any abdominal pain at this time. Passing what she describes as large amounts of gas and stool Principal diagnosis: SBO Constitutional Vitals: Vital Signs Temp Pulse Resp BP Pulse Ox 97.5 F 105 H 22 137/76 94 06/08/21 16:00 06/08/21 19:10 06/08/21 19:10 06/08/21 16:00 06/08/21 19:10 Period Temp Pulse Resp BP Sys/Helm Pulse Ox Last 24 Hr 97.5 F-98.6 F 96-109 20-28 90-137/52-81 94-97 Intake and Output 06/08/21 06/08/21 06/08/21 05:59 13:59 21:59 Intake Total 50 50 300 Output Total 400 275 Balance -350 -225 300 Weight 104 lb 14.4 oz Patient Weight 06/09/21 05:59 Weight 104 lb 14.4 oz Intake & Output: Intake & Output 06/08/21 06/08/21 06/08/21 05:59 13:59 21:59 Intake Total 50 50 300 Output Total 400 275 Balance -350 -225 300 Weight 104 lb 14.4 oz Intake: IV 50 50 50 Zosyn 3.375 gm In Dextrose 5% 50 50 50 in Water 50 ml @ 100 mls/hr IV Q8H [facility] Rx#:[id number] Oral 0 250 Output: Void Amount 275 275 Urine/Stool Mix 125 Other: Urine Appearance Clear Urine Color Bright Yellow Dark Yellow Urine Odor Normal Stool Size Small Stool Consistency Soft Liquid # Bowel Movements 1 Exam: Looks well, NAD GI/Abdominal Additional comments: belly is soft, flat and seems entirely non tender A/P Narrative A/P Narrative: Clinically resolved SBO No operative indications at this time Will continue to follow with you Time Spent With Patient Time: Total time spent is greater than 50% in coordination of care (as documented) at patient's floor/unit and/or counseling patient:
[2021-06-08] MEDS: LORazepam 0.5 MG TABLET PO PRN (21:46)
[2021-06-08] MEDS: SENNOSIDES 1 TABLET PO SCH (21:59)
[2021-06-09] MEDS: IPRATROPIUM/ALBUTEROL 3 ML AMPUL.NEB NEB PRN (00:50)
[2021-06-09] MEDS: LORazepam 0.5 MG TABLET PO PRN ×3 (02:24→23:59)
[2021-06-09] MEDS: INSULIN LISPRO 1 UNIT/0.01 ML UNIT SQ SCH ×4 (03:59→21:48)
[2021-06-09] MEDS: PIPERACILLIN SODIUM/TAZOBACTAM 3.375 GM in DEXTROSE 5% IN WATER 50 ML IV SCH ×3 (06:01→21:13)
[2021-06-09 06:56] LABS: Basophils # (Auto) 0 K/mcL (0.00-0.30); Basophils % (Auto) 0 % (0.0-2.0); Eosinophils # (Auto) 0.11 K/mcL (0.00-0.70); Eosinophils % (Auto) 1.1 % (0.0-7.0); Hematocrit 33.2 % (34.1-44.9); Hemoglobin 10.5 g/dL (11.2-15.7); Lymphocytes # (Auto) 0.41 K/mcL (1.50-4.80); Lymphocytes % (Auto) 4.1 % (15.5-49.0); Mean Cell Volume 99.4 fL (80.0-100.0); Mean Corpuscular HGB Conc 31.6 g/dL (31.0-36.0); Mean Platelet Volume 12.7 fL (7.4-10.4); Monocytes # (Auto) 1.21 K/mcL (0.10-0.90); Neutrophils % (Auto) 82.8 % (38.0-78.0); Platelet Count 199 K/mcL (140-440); RBC 3.34 M/mcL (3.59-5.38); Red Cell Distribution Width 12.8 % (11.5-14.5); WBC 10.1 K/mcL (4.5-11.0)
[2021-06-09 08:02] LABS: ALT/SGPT 44 U/L (<40); AST/SGOT 23 U/L (<32); Albumin 3.2 gm/dL (3.2-5.2); Albumin/Globulin Ratio 1.4 (1.0-2.3); Alkaline Phosphatase 55 U/L (39-117); Bilirubin,Total 0.2 mg/dL (0.1-1.0); Blood Urea Nitrogen 33 mg/dL (8-23); Calcium 9.2 mg/dL (8.6-10.4); Carbon Dioxide 33 mmol/L (22-30); Chloride 90 mmol/L (96-108); Globulin 2.3 gm/dL (2.2-3.7); Glomerular Filtration Rate 91; Glucose 125 mg/dL (70-105); Phosphorous 2.9 mg/dL (2.5-4.5)
[2021-06-09] MEDS: Fluticasone-Umeclidin-Vilanter [Trelegy Ellipta] Inhaler INH SCH (10:23)
[2021-06-09] MEDS: DOCUSATE SODIUM 100 MG CAPSULE PO SCH ×2 (10:24→21:13)
[2021-06-09] MEDS: ENOXAPARIN 40 MG/0.4 ML SYRINGE SQ SCH (10:25)
[2021-06-09] MEDS: 0.9 % SODIUM CHLORIDE 10 ML SYRINGE IV SCH ×2 (10:30→21:14)
--- NOTE | 2021-06-09 11:13 | Internal Med Progress Note ---
SUBJECTIVE Subjective Patient information: Note initiated : 06/09/21 at 11:09 am Service Date, if different from initiated Date: [] Patient: Georgina Isaacs 81 y/o F admitted on 05/27/21 for Abdominal pain. Chief Complaint: [] Principal diagnosis: SBO Interval history: Ms. Isaacs is a 81 year old female with a history of partial colectomy, hysterectomy, oxygen dependent COPD, hypertension who presented to the emergency department for abdominal pain was found to have a small bowel obstruction on CT scan showing a transitional point in the right lower quadrant. General surgery recommended that the patient be transferred to a higher level of care, the emergency room department provider consulted with [facility] however transfer was refused at that facility. The patient did not want to transfer out of the [facility], instead wanted to try conservative management at [facility]. The concern is the patient's severe oxygen dependent COPD, if she required surgery it is unlikely we would be able to extubate the patient after surgery leading to prolonged ventilator weaning and possible requirement for tracheostomy. With the understanding that we would not provide operative intervention at [place] instead only conservative management, in keeping with the patient's wishes to remain in the [facility] medicine agreed to admit the patient for conservative management of the small bowel obstruction. 05/29 Passing gas, NG tube suctioned 200 mL, SBO likely beginning to resolve. Surgery following, on Zosyn. 05/30 Passing more gas today and no bowel movement yet. Abdominal x-ray showed mechanical small bowel obstruction, no significant interval change since 05/28/2021. 05/31 Yesterday abdominal x-ray no improvement. Patient did states she had a BM this morning. NG tube in place with significant output. Small bowel follow-through pending 06/01 Patient states she is feeling okay this morning. No worse. She says she had a small bowel movement last night but per nursing note there is no bowel movements. Small bowel follow-through showed high-grade small bowel obstruction. Will await plan once surgery discussion with patient family. 06/02 Patient reports having several moderate BMs overnight and this morning. NG output seems to be better. TPN ordered for today. 06/03 Patient states she is feeling okay. Says she had several BMs overnight. No nausea or vomiting. NG tube still putting out fluid. 06/04 Patient says she had passed a lot of gas lately. No nausea vomiting or abdominal abdominal pain. 06/05: Patient had a bowel movement earlier this morning. TPN clamped. Continue TPN. On clear liquid diet. Denies any nausea or vomiting. Denies abdominal pain. On 2.5L/min oxygen, denies shortness of breath, cough, or respiratory wheezing. 06/06: Patient had multiple bowel movements overnight. Still on TPN. On clear liquid diet. Denies any nausea or vomiting. Denies abdominal pain. On 3L/min oxygen, denies shortness of breath, cough, or respiratory wheezing. d/c NG tube according to Dr. Schmidt. Family would like patient to go to SNF for 1-2 week upon hospital discharge, will talk to rehabilitation case coordinator tomorrow. 06/07: Afebrile overnight. Bowel movement overnight. Current oxygen requirement 4 L/min. Patient has increasing degree of shortness of breath but denies cough or wheezing. She is complaining of anxiety. She denies any chest pain or abdominal pain or palpitations. WBC 33 this morning. Serum potassium level 5.9. We are going to repeat chest x-ray and KUB this morning to look for any signs of new infections or other complications. Start broad-spectrum antibiotics vancomycin and Zosyn. Lasix IV. Blood culture x2. Repeat chemistry at noon. 06/08: On 4L/min oxygen. WBC 15.6. Seen by SLT, recs. level 4 dysphagia diet. Had one BM earlier today according to patient. c/o same degree of SOB. Minimal cough. P ositive for respiratory wheezing. Denies any fever or chills. Denies abdominal pain. Denies nausea or vomiting. MRSA screening negative-->d/c Vancomycin. Continue Zosyn. Continue supplemental oxygen. Level 4 dysphagia diet according to SLT recs. Continue TPN and general surgeon recs. 06/09: Afebrile overnight. Currently on room air. WBC 10.1. Have increasing degree of dysphagia. Same degree of shortness of breath with productive cough and respiratory wheezing. Denies any fever or chills. Denies abdominal pain. Denies nausea or vomiting. Continue Zosyn for aspiration pneumonia. Continue to work with SLT for swallowing evaluation. Continue TPN and general surgeon recs. Constitutional Vitals: Vital Signs Temp Pulse Resp BP Pulse Ox 36.3 C 95 H 20 92/62 98 06/09/21 07:32 06/09/21 07:32 06/09/21 07:32 06/09/21 07:32 06/09/21 07:32 Period Temp Pulse Resp BP Sys/Helm Pulse Ox Last 24 Hr 36.3 C-36.8 C 95-109 18-30 86-137/49-76 94-98 Intake and Output 06/08/21 06/09/21 06/09/21 21:59 05:59 13:59 Intake Total 300 500 50 Output Total 150 150 250 Balance 150 350 -200 Weight 47.582 kg Intake & Output: Intake & Output 06/08/21 06/09/21 06/09/21 21:59 05:59 13:59 Intake Total 300 500 50 Output Total 150 150 250 Balance 150 350 -200 Weight 47.582 kg Intake: IV 50 300 50 Intralipid 20% 250 ml In Premix 250 1 Bag @ 25 mls/hr IV Q48@1600 BRIAN Rx#:[id number] Zosyn 3.375 gm In Dextrose 5% 50 50 50 in Water 50 ml @ 100 mls/hr IV Q8H BRIAN Rx#:[id number] Oral 250 200 Output: Void Amount 150 150 Urine/Stool Mix 250 Other: Meal Dinner Percent of Meal Consumed 25% Feeding Ability Independent Urine Appearance Clear Urine Color Bright Yellow Stool Color Brown Stool Consistency Soft Liquid General appearance: cooperative, no acute distress and thin Head Head exam: Present atraumatic and normal inspection Eye Eye exam: Present normal appearance ENT ENT exam: Present mucous membranes moist, normal exam and normal external ear exam Neck Neck exam: Present normal inspection Respiratory Respiratory exam: Present decreased breath sounds and rhonchi Cardiovascular Cardiovascular exam: Present normal rate and rhythm GI/Abdominal GI/Abdominal exam: Present normal bowel sounds Back Exam Back exam: Present normal inspection Neurological Exam Neurological exam: Present alert and oriented X3 Skin Skin exam: Present intact and warm OBJ DATA Labs CBC & Chem 7: 06/09/21 05:27 06/09/21 05:27 Labs: Abnormal Lab Results 06/09/21 06/09/21 06/08/21 05:27 05:27 06:22 WBC RBC 3.34 L Hgb 10.5 L Hct 33.2 L MCV MCHC MPV 12.7 H Neut % (Auto) 82.8 H Lymph % (Auto) 4.1 L Lymph # (Auto) 0.41 L [place] # (Auto) 1.21 H Absolute Neutrophils 8.38 H Sodium 127 L 128 L Potassium Chloride 90 L 91 L Carbon Dioxide 33 H Anion Gap 4.0 L 7.0 L BUN 33 H 32 H Creatinine 0.5 L 0.5 L Glucose 125 H 149 H Phosphorus 2.3 L AST 35 H ALT 44 H 54 H Total Protein 5.5 L 5.5 L Prealbumin 06/08/21 06/07/21 06/07/21 06:22 11:49 08:06 WBC 15.6 H 33.1 H* RBC 3.39 L Hgb 10.6 L Hct MCV 101.2 H 100.8 H MCHC 30.9 L MPV 12.8 H 12.7 H Neut % (Auto) 93.3 H 94.9 H Lymph % (Auto) 2.0 L 1.2 L Lymph # (Auto) 0.31 L 0.39 L [place] # (Auto) 1.24 H Absolute Neutrophils 14.58 H 31.41 H Sodium 129 L Potassium 5.8 H Chloride 92 L Carbon Dioxide Anion Gap BUN 29 H Creatinine 0.5 L Glucose 119 H Phosphorus AST ALT Total Protein Prealbumin 06/07/21 06/07/21 06/07/21 06:33 06:33 06:33 WBC 33.7 H* RBC Hgb Hct MCV 101.3 H MCHC MPV 12.7 H Neut % (Auto) 93.7 H Lymph % (Auto) 1.6 L Lymph # (Auto) 0.55 L [place] # (Auto) 1.50 H Absolute Neutrophils 31.55 H Sodium 128 L Potassium 5.9 H* Chloride 95 L Carbon Dioxide Anion Gap 5.0 L BUN 29 H Creatinine 0.4 L Glucose 154 H Phosphorus 2.4 L AST 34 H ALT 60 H Total Protein Prealbumin 15.7 L Meds: Medications Acetaminophen (Acetaminophen 325 Mg Tablet) 650 mg PO Q6HP PRN; Protocol PRN Reason: Per Pain Protocol/Fever > 101 Last Admin: 06/06/21 03:41 Dose: 650 mg Documented by: Hydrocodone Bitart/Acetaminophen (Hydrocodone/Apap 5/325mg Tablet) 1 tab PO Q4HP PRN; Protocol PRN Reason: Per Pain Protocol Last Admin: 05/28/21 10:36 Dose: 1 tab Documented by: Albuterol/Ipratropium (Ipratropium/Albuterol 3 Ml Ampul.Neb) 3 ml NEB Q4HP PRN PRN Reason: Shortness Of Breath Last Admin: 06/09/21 00:50 Dose: 3 ml Documented by: Benzocaine (Benzocaine 1 [place] Bottle) 1 spray TOPICAL PRN PRN PRN Reason: Sore Throat Last Admin: 06/05/21 13:44 Dose: 1 spray Documented by: Diagnostic Test (Pha) (Accu-Chek 1 Each Strip) 1 each FS Q6H [facility] Last Admin: 06/09/21 09:54 Dose: 1 each Documented by: Docusate Sodium (Docusate Sodium 100 Mg Capsule) 100 mg PO BID [facility] Last Admin: 06/09/21 10:24 Dose: 100 mg Documented by: Enoxaparin Sodium (Enoxaparin 40 Mg/0.4 Ml Syringe) 40 mg SQ DAILY [facility] Last Admin: 06/09/21 10:25 Dose: 40 mg Documented by: Guaifenesin (Guaifenesin 600 Mg Tab.Sr.12h) 600 mg PO BIDP PRN PRN Reason: Congestion Last Admin: 06/06/21 15:36 Dose: 600 mg Documented by: Heparin Sodium (Porcine) (Heparin Flush 10 Units/Ml 5 Ml Syringe) 2 ml IV Q12 [facility] Last Admin: 06/09/21 10:26 Dose: 2 ml Documented by: Hydralazine HCl (Hydralazine 20 Mg/Ml Vial) 0 mg IV Q2HP PRN PRN Reason: Hypertension Last Admin: 06/06/21 21:13 Dose: 10 mg Documented by: Hydromorphone HCl (Hydromorphone 0.5 Mg/0.5 Ml Syringe) 0.5 mg IV Q2HP PRN; Pr otocol PRN Reason: Per Pain Protocol Last Admin: 06/06/21 22:39 Dose: 0.5 mg Documented by: Fat Emulsion Intravenous 250 (ml/ Premix) 250 mls @ 25 mls/hr IV Q48@1600 [facility] Last Infusion: 06/09/21 02:26 Dose: Infused Documented by: Piperacillin Sod/Tazobactam (Sod 3.375 gm/ Dextrose) 50 mls @ 100 mls/hr IV Q8H [facility]; Protocol Last Infusion: 06/09/21 06:32 Dose: Infused Documented by: Calcium Gluconate 5 meq/Magnesium Sulfate 16.24 meq/Sodium Phosphate 30 mmol/Sodium Chloride 40 meq/Potassium Chloride 20 meq/Multivitamins/Minerals 10 ml/Amino Acids 2,054.7526 mls @ 60 mls/hr IV Q24H [facility] Stop: 06/09/21 11:59 Last Admin: 06/08/21 12:24 Dose: 60 mls/hr Documented by: Calcium Gluconate 5 meq/Magnesium Sulfate 16.24 meq/Sodium Phosphate 30 mmol/Sodium Chloride 80 meq/Potassium Chloride 20 meq/Multivitamins/Minerals 10 ml/Amino Acids 2,064.7526 mls @ 60 mls/hr IV Q24H [facility] Insulin Human Lispro (Insulin Lispro 1 Unit/0.01 Ml Unit) 0 unit SQ Q6H [facility]; Protocol Last Admin: 06/09/21 09:55 Dose: Not Given Documented by: Lorazepam (Lorazepam 0.5 Mg Tablet) 0.5 mg PO Q6HP PRN PRN Reason: ANXIETY/SEDATION Last Admin: 06/09/21 02:24 Dose: 0.5 mg Documented by: Ondansetron HCl (Ondansetron 4 Mg/2 Ml Vial) 4 mg IV Q6HP PRN PRN Reason: Nausea And Vomiting Last Admin: 05/31/21 10:41 Dose: 4 mg Documented by: Fluticasone- Umeclidin-Vilanter [ Trelegy Ellipta] Inhaler 1 dose INH Q24H [facility] Last Admin: 06/09/21 10:23 Dose: 1 dose Documented by: Senna (Sennosides 1 Tablet) 2 tab PO HS [facility] Last Admin: 06/08/21 21:59 Dose: Not Given Documented by: Sodium Chloride (0.9 % Sodium Chloride 10 Ml Syringe) 10 ml IV UD PRN PRN Reason: FLUSH Last Admin: 06/08/21 06:02 Dose: 10 ml Documented by: Sodium Chloride (0.9 % Sodium Chloride 10 Ml Syringe) 10 ml IV Q12 [facility] Last Admin: 06/09/21 10:30 Dose: 10 ml Documented by: Throat Lozenges (Benzocaine/Menthol 1 Lozenge) 1 lozenge PO PRN PRN PRN Reason: Sore Throat Last Admin: 06/06/21 10:57 Dose: 1 lozenge Documented by: A/P Assessment and plan (1) Small bowel obstruction: Status: Acute (2) COPD (chronic obstructive pulmonary disease): Status: Acute Qualifiers: COPD type: emphysema Emphysema type: unspecified Qualified Code(s): J43.9 - Emphysema, unspecified (3) HTN (hypertension): Status: Chronic Comment: Well-controlled at rest Continue lisinopril 20 mg daily Low-sodium diet Qualifiers: Hypertension type: essential hypertension Qualified Code(s): I10 - Essential (primary) hypertension (4) Hyperkalemia: Status: Acute (5) Aspiration pneumonia: Status: Acute Narrative A/P Narrative: Assessment and Plans: 1. Small bowel obstruction: Inpatient med surg Consulting general surgeons Dr. Almaguer and Dr. Schmidt, recs. appreciated Continue TPN SLT evaluation for worsening dysphagia Serial abdominal imaging as seen fit by surgeons [place] PRN moderate pain Dilaudid IV PRN severe pain Zofran IV PRN nausea vomiting 2. h/o COPD, with worsening dyspnea, complicated by aspiration pneumonia: Supplemental oxygen therapy, currently on room air Trelegy Ellipta DuoNEB NEB PRN wheezing Continue Zosyn Blood culture X2, no growth to date 3. Essential HTN: Currently normotensive d/c Lisinopril given hyperkalemia 4. Hyperkalemia: RESOLVED d/c Lisinopril given hyperkalemia s/p Lasix CMP daily to trend serum potassium level GI ppx: not currently indicated DVT ppx: Lovenox Code status: Full Prognosis: guarded Disposition: inpatient med surg; Family would like patient to go to SNF for 1-2 week upon hospital discharge, will talk to rehabilitation case coordinator tomorrow Time Spent With Patient Time: Total time spent is greater than 50% in coordination of care (as documented) at patient's floor/unit and/or counseling patient: Total time spent with greater than 50% in coordination of care (as documented) at patient's floor/unit and/or counseling patient:: 35 - 50 minutes QUALITY VTE Deep Vein Thrombosis/Pulmonary Embolism Present on Admission: No
[2021-06-09] MEDS ORDERED: [UNRECOGNIZED DRUG - OTHER] IV SCH (12:00)
[2021-06-09] MEDS ORDERED: SODIUM PHOSPHATE IV SCH (12:00)
[2021-06-09] MEDS ORDERED: MAGNESIUM SULFATE IV SCH (12:00)
[2021-06-09] MEDS ORDERED: CALCIUM GLUCONATE IV SCH (12:00)
--- NOTE | 2021-06-09 13:27 | XRay Report ---
CLINICAL INFORMATION: Shortness of breath COMPARISON: 06/07/2021 TECHNIQUE: PA and Lateral views FINDINGS: The heart size, mediastinum and pulmonary vessels are unremarkable. COPD changes again noted. Moderate right basilar interstitial infiltrate has improved. Left basilar infiltrate is resolved. Small bilateral pleural effusions noted.. Left PICC line in satisfactory position. IMPRESSION: Modest improvement in right basilar infiltrate. Interval resolution of left basilar infiltrate COPD Small bilateral pleural effusions Interpreted and Authenticated by: Darell Weber 06/09/21
--- NOTE | 2021-06-09 14:12 | Internal Med Progress Note ---
SUBJECTIVE Subjective Patient information: Note initiated : 06/09/21 at 2:04 pm Service Date, if different from initiated Date: [] Patient: Georgina Isaacs 81 y/o F admitted on 05/27/21 for Abdominal pain. Chief Complaint: [] Principal diagnosis: SBO Interval history: Ms. Isaacs is a 81 year old female with a history of partial colectomy, hysterectomy, oxygen dependent COPD, hypertension who presented to the emergency department for abdominal pain was found to have a small bowel obstruction on CT scan showing a transitional point in the right lower quadrant. General surgery recommended that the patient be transferred to a higher level of care, the emergency room department provider consulted with [facility] however transfer was refused at that facility. The patient did not want to transfer out of the [facility], instead wanted to try conservative management at [facility]. The concern is the patient's severe oxygen dependent COPD, if she required surgery it is unlikely we would be able to extubate the patient after surgery leading to prolonged ventilator weaning and possible requirement for tracheostomy. With the understanding that we would not provide operative intervention at [place] instead only conservative management, in keeping with the patient's wishes to remain in the [facility] medicine agreed to admit the patient for conservative management of the small bowel obstruction. 05/29 Passing gas, NG tube suctioned 200 mL, SBO likely beginning to resolve. Surgery following, on Zosyn. 05/30 Passing more gas today and no bowel movement yet. Abdominal x-ray showed mechanical small bowel obstruction, no significant interval change since 05/28/2021. 05/31 Yesterday abdominal x-ray no improvement. Patient did states she had a BM this morning. NG tube in place with significant output. Small bowel follow-through pending 06/01 Patient states she is feeling okay this morning. No worse. She says she had a small bowel movement last night but per nursing note there is no bowel movements. Small bowel follow-through showed high-grade small bowel obstruction. Will await plan once surgery discussion with patient family. 06/02 Patient reports having several moderate BMs overnight and this morning. NG output seems to be better. TPN ordered for today. 06/03 Patient states she is feeling okay. Says she had several BMs overnight. No nausea or vomiting. NG tube still putting out fluid. 06/04 Patient says she had passed a lot of gas lately. No nausea vomiting or abdominal abdominal pain. 06/05: Patient had a bowel movement earlier this morning. TPN clamped. Continue TPN. On clear liquid diet. Denies any nausea or vomiting. Denies abdominal pain. On 2.5L/min oxygen, denies shortness of breath, cough, or respiratory wheezing. 06/06: Patient had multiple bowel movements overnight. Still on TPN. On clear liquid diet. Denies any nausea or vomiting. Denies abdominal pain. On 3L/min oxygen, denies shortness of breath, cough, or respiratory wheezing. d/c NG tube according to Dr. Schmidt. Family would like patient to go to SNF for 1-2 week upon hospital discharge, will talk to rn case mgr tomorrow. 06/07: Afebrile overnight. Bowel movement overnight. Current oxygen requirement 4 L/min. Patient has increasing degree of shortness of breath but denies cough or wheezing. She is complaining of anxiety. She denies any chest pain or abdominal pain or palpitations. WBC 33 this morning. Serum potassium level 5.9. We are going to repeat chest x-ray and KUB this morning to look for any signs of new infections or other complications. Start broad-spectrum antibiotics vancomycin and Zosyn. Lasix IV. Blood culture x2. Repeat chemistry at noon. 06/08: On 4L/min oxygen. WBC 15.6. Seen by SLT, recs. level 4 dysphagia diet. Had one BM earlier today according to patient. c/o same degree of SOB. Minimal cough. Po sitive for respiratory wheezing. Denies any fever or chills. Denies abdominal pain. Denies nausea or vomiting. MRSA screening negative-->d/c Vancomycin. Continue Zosyn. Continue supplemental oxygen. Level 4 dysphagia diet according to SLT recs. Continue TPN and general surgeon recs. 06/09: Afebrile overnight. Currently on room air. WBC 10.1. Have increasing degree of dysphagia. Same degree of shortness of breath with productive cough and respiratory wheezing. Denies any fever or chills. Denies abdominal pain. Denies nausea or vomiting. Continue Zosyn for aspiration pneumonia. Continue to work with SLT for swallowing evaluation. Continue TPN and general surgeon recs. 06/10 Rapid response was called for respiratory failure, patient was transferred to the PCU. Chest x-ray showed a moderate vague right basilar infiltrate. Zosyn continued for pneumonia. The patient recovered back to her baseline oxygen requirement. Goals of care discussed with the patient and family, discussed guarded prognosis and CODE STATUS. CODE STATUS was changed to DNR in accordance with the patient's and family's wishes. Family requested the patient be transferred back to medical surgical unit due to anxiety in the PCU from prior experience with a family member's . Physical exam Head: Atraumatic, normal inspection. Eyes: normal appearance, no scleral icterus. Neck: full ROM Respiratory: 4 L/min oxygen supplementation via oxime mask, accessory muscle use, diminished breath sounds bilaterally. Cardiovascular: normal rate and rhythm, S1, S2. GI/Abdominal: soft, nontender, no guarding. Extremities: full range of motion, nontender. Neurological: CN II-XII intact, intact motor, intact sensation. Psychiatric: normal mood. Skin: warm, normal color Constitutional Vitals: Vital Signs Temp Pulse Resp BP Pulse Ox 97.6 F 101 H 22 93/61 98 06/09/21 12:00 06/09/21 12:00 06/09/21 12:00 06/09/21 12:00 06/09/21 07:32 Period Temp Pulse Resp BP Sys/Helm Pulse Ox Last 24 Hr 97.3 F-98.2 F 95-109 18-30 86-137/49-76 94-98 Intake and Output 06/09/21 06/09/21 06/09/21 05:59 13:59 21:59 Intake Total 2524.7526 530 Output Total 150 510 Balance 2374.7526 20 Intake & Output: Intake & Output 06/09/21 06/09/21 06/09/21 05:59 13:59 21:59 Intake Total 2524.7526 530 Output Total 150 510 Balance 2374.7526 20 Intake: IV 2324.7526 50 Calcium Gluconate 5 Meq 2023.75 Magnesium Sulfate 16.24 Meq Sodium Phosphate 30 Mmol In Clinimix 5%-20% Solution 2,000 ml @ 60 mls/hr IV Q24H [facility] Rx#: [id number] Intralipid 20% 250 ml In Premix 250 1 Bag @ 25 mls/hr IV Q48@1600 [facility] Rx#:[id number] Zosyn 3.375 gm In Dextrose 5% 50 50 in Water 50 ml @ 100 mls/hr IV Q8H [facility] Rx#:[id number] Oral 200 480 Output: Void Amount 150 Urine/Stool Mix 510 Other: Meal Breakfast Percent of Meal Consumed 75% Feeding Ability Assist with Tray Set Up Urine Appearance Clear Urine Color Dark Mignon Urine Odor Foul Stool Size Small Stool Color Brown Stool Consistency Soft Loose # Bowel Movements 1 OBJ DATA Labs CBC & Chem 7: 06/09/21 05:27 06/10/21 07:45 Labs: Abnormal Lab Results 06/09/21 06/09/21 06/08/21 05:27 05:27 06:22 WBC RBC 3.34 L Hgb 10.5 L Hct 33.2 L MCV MCHC MPV 12.7 H Neut % (Auto) 82.8 H Lymph % (Auto) 4.1 L Lymph # (Auto) 0.41 L [place] # (Auto) 1.21 H Absolute Neutrophils 8.38 H Sodium 127 L 128 L Potassium Chloride 90 L 91 L Carbon Dioxide 33 H Anion Gap 4.0 L 7.0 L BUN 33 H 32 H Creatinine 0.5 L 0.5 L Glucose 125 H 149 H Phosphorus 2.3 L AST 35 H ALT 44 H 54 H Total Protein 5.5 L 5.5 L Prealbumin 06/08/21 06/07/21 06/07/21 06:22 11:49 08:06 WBC 15.6 H 33.1 H* RBC 3.39 L Hgb 10.6 L Hct MCV 101.2 H 100.8 H MCHC 30.9 L MPV 12.8 H 12.7 H Neut % (Auto) 93.3 H 94.9 H Lymph % (Auto) 2.0 L 1.2 L Lymph # (Auto) 0.31 L 0.39 L [place] # (Auto) 1.24 H Absolute Neutrophils 14.58 H 31.41 H Sodium 129 L Potassium 5.8 H Chloride 92 L Carbon Dioxide Anion Gap BUN 29 H Creatinine 0.5 L Glucose 119 H Phosphorus AST ALT Total Protein Prealbumin 06/07/21 06/07/21 06/07/21 06:33 06:33 06:33 WBC 33.7 H* RBC Hgb Hct MCV 101.3 H MCHC MPV 12.7 H Neut % (Auto) 93.7 H Lymph % (Auto) 1.6 L Lymph # (Auto) 0.55 L [place] # (Auto) 1.50 H Absolute Neutrophils 31.55 H Sodium 128 L Potassium 5.9 H* Chloride 95 L Carbon Dioxide Anion Gap 5.0 L BUN 29 H Creatinine 0.4 L Glucose 154 H Phosphorus 2.4 L AST 34 H ALT 60 H Total Protein Prealbumin 15.7 L Meds: Medications Acetaminophen (Acetaminophen 325 Mg Tablet) 650 mg PO Q6HP PRN; Protocol PRN Reason: Per Pain Protocol/Fever > 101 Last Admin: 06/06/21 03:41 Dose: 650 mg Documented by: Hydrocodone Bitart/Acetaminophen (Hydrocodone/Apap 5/325mg Tablet) 1 tab PO Q4HP PRN; Protocol PRN Reason: Per Pain Protocol Last Admin: 05/28/21 10:36 Dose: 1 tab Documented by: Albuterol/Ipratropium (Ipratropium/Albuterol 3 Ml Ampul.Neb) 3 ml NEB Q4HP PRN PRN Reason: Shortness Of Breath Last Admin: 06/09/21 00:50 Dose: 3 ml Documented by: Benzocaine (Benzocaine 1 [place] Bottle) 1 spray TOPICAL PRN PRN PRN Reason: Sore Throat Last Admin: 06/05/21 13:44 Dose: 1 spray Documented by: Diagnostic Test (Pha) (Accu-Chek 1 Each Strip) 1 each FS Q6H [facility] Last Admin: 06/09/21 09:54 Dose: 1 each Documented by: Docusate Sodium (Docusate Sodium 100 Mg Capsule) 100 mg PO BID [facility] Last Admin: 06/09/21 10:24 Dose: 100 mg Documented by: Enoxaparin Sodium (Enoxaparin 40 Mg/0.4 Ml Syringe) 40 mg SQ DAILY [facility] Last Admin: 06/09/21 10:25 Dose: 40 mg Documented by: Guaifenesin (Guaifenesin 600 Mg Tab.Sr.12h) 600 mg PO BIDP PRN PRN Reason: Congestion Last Admin: 06/06/21 15:36 Dose: 600 mg Documented by: Heparin Sodium (Porcine) (Heparin Flush 10 Units/Ml 5 Ml Syringe) 2 ml IV Q12 [facility] Last Admin: 06/09/21 10:26 Dose: 2 ml Documented by: Hydralazine HCl (Hydralazine 20 Mg/Ml Vial) 0 mg IV Q2HP PRN PRN Reason: Hypertension Last Admin: 06/06/21 21:13 Dose: 10 mg Documented by: Hydromorphone HCl (Hydromorphone 0.5 Mg/0.5 Ml Syringe) 0.5 mg IV Q2HP PRN; Protocol PRN Reason: Per Pain Protocol Last Admin: 06/06/21 22:39 Dose: 0.5 mg Documented by: Fat Emulsion Intravenous 250 (ml/ Premix) 250 mls @ 25 mls/hr IV Q48@1600 [facility] Last Infusion: 06/09/21 02:26 Dose: Infused Documented by: Piperacillin Sod/Tazobactam (Sod 3.375 gm/ Dextrose) 50 mls @ 100 mls/hr IV Q8H [facility]; Protocol Last Infusion: 06/09/21 06:32 Dose: Infused Documented by: Calcium Gluconate 5 meq/Magnesium Sulfate 16.24 meq/Sodium Phosphate 30 mmol/Sodium Chloride 80 meq/Potassium Chloride 20 meq/Multivitamins/Minerals 10 ml/Amino Acids 2,064.7526 mls @ 60 mls/hr IV Q24H [facility] Last Admin: 06/09/21 12:36 Dose: 60 mls/hr Documented by: Insulin Human Lispro (Insulin Lispro 1 Unit/0.01 Ml Unit) 0 unit SQ Q6H [facility]; Protocol Last Admin: 06/09/21 09:55 Dose: Not Given Documented by: Lorazepam (Lorazepam 0.5 Mg Tablet) 0.5 mg PO Q6HP PRN PRN Reason: ANXIETY/SEDATION Last Admin: 06/09/21 02:24 Dose: 0.5 mg Documented by: Ondansetron HCl (Ondansetron 4 Mg/2 Ml Vial) 4 mg IV Q6HP PRN PRN Reason: Nausea And Vomiting Last Admin: 05/31/21 10:41 Dose: 4 mg Documented by: Fluticasone- Umeclidin-Vilanter [ Trelegy Ellipta] Inhaler 1 dose INH Q24H [facility] Last Admin: 06/09/21 10:23 Dose: 1 dose Documented by: Senna (Sennosides 1 Tablet) 2 tab PO [facility] Last Admin: 06/08/21 21:59 Dose: Not Given Documented by: Sodium Chloride (0.9 % Sodium Chloride 10 Ml Syringe) 10 ml IV UD PRN PRN Reason: FLUSH Last Admin: 06/08/21 06:02 Dose: 10 ml Documented by: Sodium Chloride (0.9 % Sodium Chloride 10 Ml Syringe) 10 ml IV Q12 [facility] Last Admin: 06/09/21 10:30 Dose: 10 ml Documented by: Throat Lozenges (Benzocaine/Menthol 1 Lozenge) 1 lozenge PO PRN PRN PRN Reason: Sore Throat Last Admin: 06/06/21 10:57 Dose: 1 lozenge Documented by: A/P Narrative A/P Narrative: Assessment:81-year-old female with a history of partial colectomy, hysterectomy, oxygen dependent COPD, hypertension initially admitted for a small bowel obstruction on 05/27/2021. Small bowel obstruction essentially resolved however the hospitalization was complicated by worsening dyspnea probably secondary to aspiration pneumonia, generalized weakness secondary to the prolonged hospitalization, and malnourishment requiring TPN. #Aspiration pneumonia #Generalized weakness #Dysphagia #Oxygen dependent COPD #Malnourishment on TPN #Essential hypertension #Resolved small bowel obstruction #Guarded prognosis Plan -Continue Zosyn, treat aspiration pneumonia for 5 to 7 days. -Oxygen supplementation, monitor respiratory status. -General surgery following for recent SBO. -Speech therapy following for dysphagia. -Nutrition following. -TPN per pharmacy. -PT following. -DVT prophylaxis: Lovenox -CODE STATUS: DNR/DNI -Disposition: If the patient survives to discharge then plan will be SNF for rehab. If the patient's clinical status deteriorates will likely transition to comfort cares. Time Spent With Patient Time: Total time spent is greater than 50% in coordination of care (as documented) at patient's floor/unit and/or counseling patient: QUALITY VTE Deep Vein Thrombosis/Pulmonary Embolism Present on Admission: No
[2021-06-09] MEDS: guaiFENesin 600 MG TAB.SR.12H PO PRN (21:13)
[2021-06-09] MEDS: SENNOSIDES 1 TABLET PO SCH (21:13)
[2021-06-10] MEDS: INSULIN LISPRO 1 UNIT/0.01 ML UNIT SQ SCH ×3 (04:46→17:10)
[2021-06-10] MEDS: PIPERACILLIN SODIUM/TAZOBACTAM 3.375 GM in DEXTROSE 5% IN WATER 50 ML IV SCH ×3 (05:28→22:24)
[2021-06-10 08:46] LABS: ALT/SGPT 43 U/L (<40); AST/SGOT 27 U/L (<32); Albumin 3.4 gm/dL (3.2-5.2); Albumin/Globulin Ratio 1.4 (1.0-2.3); Alkaline Phosphatase 61 U/L (39-117); Bilirubin,Direct < 0.2 mg/dL (0-0.3); Bilirubin,Total 0.4 mg/dL (0.1-1.0); Blood Urea Nitrogen 28 mg/dL (8-23); Calcium 9.2 mg/dL (8.6-10.4); Carbon Dioxide 31 mmol/L (22-30); Chloride 90 mmol/L (96-108); Globulin 2.4 gm/dL (2.2-3.7); Glomerular Filtration Rate 91; Glucose 141 mg/dL (70-105); Lactate Dehydrogenase 252 U/L (135-225); Phosphorous 3.1 mg/dL (2.5-4.5); Triglycerides 76 mg/dL (<150); Uric Acid 1.5 mg/dL (2.5-8.0)
[2021-06-10] MEDS: DOCUSATE SODIUM 100 MG CAPSULE PO SCH ×2 (08:47→21:12)
[2021-06-10] MEDS: Fluticasone-Umeclidin-Vilanter [Trelegy Ellipta] Inhaler INH SCH (08:47)
[2021-06-10] MEDS: guaiFENesin 600 MG TAB.SR.12H PO PRN (08:47)
[2021-06-10] MEDS: 0.9 % SODIUM CHLORIDE 10 ML SYRINGE IV SCH ×2 (08:47→21:21)
[2021-06-10] MEDS: ENOXAPARIN 40 MG/0.4 ML SYRINGE SQ SCH (08:48)
--- NOTE | 2021-06-10 10:00 | General Surgery Progress Note ---
SUBJECTIVE Subjective Patient information: Note initiated : 06/10/21 at 9:57 am Service Date, if different from initiated Date: [] Patient: Georgina Isaacs 81 y/o F admitted on 05/27/21 for Abdominal pain. Chief Complaint: [] Continues to feel well. Denies any abdominal pain and feels she is doing well with oral intake - passing large amounts of gas and stool per her history Principal diagnosis: SBO Constitutional Vitals: Vital Signs Temp Pulse Resp BP Pulse Ox 97.8 F 95 H 20 97/65 95 06/10/21 07:58 06/10/21 07:58 06/10/21 07:58 06/10/21 07:58 06/10/21 07:58 Period Temp Pulse Resp BP Sys/Helm Pulse Ox Last 24 Hr 97.4 F-98.4 F 94-101 - 80-101/51-65 95-96 Intake and Output 06/09/21 06/10/21 06/10/21 21:59 05:59 13:59 Intake Total 100 200 Output Total 325 300 Balance -225 -100 Weight 107 lb 1.6 oz Intake & Output: Intake & Output 06/09/21 06/10/21 06/10/21 21:59 05:59 13:59 Intake Total 100 200 Output Total 325 300 Balance -225 -100 Weight 107 lb 1.6 oz Intake: IV 100 50 Zosyn 3.375 gm In Dextrose 5% 100 50 in Water 50 ml @ 100 mls/hr IV Q8H [facility] Rx#:[id number] Oral 150 Output: Void Amount 325 300 Other: Meal Breakfast Percent of Meal Consumed 10 Feeding Ability Assist with Tray Set Up Urine Appearance Clear Clear Urine Color Bright Yellow Bright Yellow Urine Odor Normal Exam: She looks well, NAD GI/Abdominal Additional comments: belly seems soft and flat, non tender, non distended, no mass A/P Narrative A/P Narrative: Clinically resolved SBO Benign abdominal exam at this time No current operative indications Time Spent With Patient Time: Total time spent is greater than 50% in coordination of care (as documented) at patient's floor/unit and/or counseling patient:
[2021-06-10] MEDS ORDERED: SODIUM PHOSPHATE IV SCH ×2 (11:15→12:00)
[2021-06-10] MEDS ORDERED: [UNRECOGNIZED DRUG - OTHER] IV SCH ×2 (11:15→12:00)
[2021-06-10] MEDS ORDERED: CALCIUM GLUCONATE IV SCH ×2 (11:15→12:00)
[2021-06-10] MEDS ORDERED: MAGNESIUM SULFATE IV SCH ×2 (11:15→12:00)
[2021-06-10] MEDS: LORazepam 0.5 MG TABLET PO PRN (11:27)
--- NOTE | 2021-06-10 12:02 | XRay Report ---
CLINICAL INFORMATION: Persistent cough COMPARISON: 06/09/2021 TECHNIQUE: PA and Lateral views FINDINGS: The heart size, mediastinum and pulmonary vessels are unremarkable. Left PICC line tip overlies the SVC. Chronic bronchitis changes noted. Moderate vague right basilar infiltrate is unchanged. Minor atelectasis in the left base stable. Tiny right pleural effusion noted. IMPRESSION: Moderate vague right basilar infiltrate stable. Chronic bronchitis. Interpreted and Authenticated by: Darell Weber 06/10/21
[2021-06-10] MEDS ORDERED: IPRATROPIUM/ALBUTEROL 3 ML AMPUL.NEB NEB PRN (13:36)
[2021-06-10] MEDS: FAT EMULSION 20% 250 ML in PREMIX 1 BAG IV SCH (16:38)
[2021-06-10] MEDS ORDERED: INSULIN LISPRO 1 UNIT/0.01 ML UNIT SQ SCH (18:00)
[2021-06-10] MEDS: ONDANSETRON 4 MG/2 ML VIAL IV PRN (19:01)
[2021-06-10] MEDS ORDERED: LORazepam 2 MG/ML VIAL IV PRN ×2 (20:31→20:38)
[2021-06-10] MEDS ORDERED: morphine 4 MG/ML VIAL IV PRN (20:38)
[2021-06-10] MEDS: SENNOSIDES 1 TABLET PO SCH (21:12)
[2021-06-10] MEDS ORDERED: 0.9 % SODIUM CHLORIDE 10 ML SYRINGE IV SCH (22:00)
--- NOTE | 2021-06-11 07:28 | EKG ---
[facility] Test Date: 2021-06-10 Pat Name: Georgina Mcgrawer Department: [facility] Room: 129 Gender: Female [employer]el [employer]: : 1940 Requested By: Celestino Jo Order Number: [id number] Reading MD: Bobby Rodriguez Measurements Intervals [place] Rate: 97 P: 89 IA: 156 QRS: 87 QRSD: 152 T: 54 QT: 302 QTc: 384 Interpretive Statements Age not entered, assumed to be 51 years old for purpose of ECG interpretation Sinus rhythm Electronically Signed On 06-11-2021 7:28:23 PDT by Bobby Rodriguez [id number]
--- NOTE | 2021-06-12 14:13 | Death Note ---
Discharge Sum: Prov Provider Patient information: Note initiated : 06/12/21 at 2:11 pm Service Date, if different from initiated Date: [] Patient: Georgina Isaacs 81 y/o F admitted on 05/27/21 for Abdominal pain. Chief Complaint: [] Primary care physician: Darell Leo DO Consults: 05/27/21 Consult to Physician [CONS] Stat Comment: Consulting Provider: Celestino Jo Reason For Exam: Physician to Consult 05/27/21 21:00 Consult to Physician [CONS] Stat Comment: Consulting Provider: Familia Almaguer Reason For Exam: Physician to Consult Discharge Sum: Diag Contributing Factors (1) Small bowel obstruction: (2) COPD (chronic obstructive pulmonary disease): (3) HTN (hypertension): (4) Hyperkalemia: (5) Aspiration pneumonia: Discharge Sum: Summary Date and Time Date of admission: 05/27/21 23:23 Summary Details: Ms. Isaacs is a 81 year old female with a history of partial colectomy, hysterectomy, oxygen dependent COPD, hypertension who presented to the emergency department for abdominal pain was found to have a small bowel obstruction on CT scan showing a transitional point in the right lower quadrant. General surgery recommended that the patient be transferred to a higher level of care, the emergency room department provider consulted with [facility] however transfer was refused at that facility. The patient did not want to transfer out of the [facility], instead wanted to try conservative management at [facility]. The concern is the patient's severe oxygen dependent COPD, if she required surgery it is unlikely we would be able to extubate the patient after surgery leading to prolonged ventilator weaning and possible requirement for tracheostomy. With the understanding that we would not provide operative intervention at [place] instead only conservative management, in keeping with the patient's wishes to remain in the [facility] medicine agreed to admit the patient for conservative management of the small bowel obstruction. 05/29 Passing gas, NG tube suctioned 200 mL, SBO likely beginning to resolve. Surgery following, on Zosyn. 05/30 Passing more gas today and no bowel movement yet. Abdominal x-ray showed mechanical small bowel obstruction, no significant interval change since 05/28/2021. 05/31 Yesterday abdominal x-ray no improvement. Patient did states she had a BM this morning. NG tube in place with significant output. Small bowel follow-through pending 06/01 Patient states she is feeling okay this morning. No worse. She says she had a small bowel movement last night but per nursing note there is no bowel movements. Small bowel follow-through showed high-grade small bowel obstruction. Will await plan once surgery discussion with patient family. 06/02 Patient reports having several moderate BMs overnight and this morning. NG output seems to be better. TPN ordered for today. 06/03 Patient states she is feeling okay. Says she had several BMs overnight. No nausea or vomiting. NG tube still putting out fluid. 06/04 Patient says she had passed a lot of gas lately. No nausea vomiting or abdominal abdominal pain. 06/05: Patient had a bowel movement earlier this morning. TPN clamped. Continue TPN. On clear liquid diet. Denies any nausea or vomiting. Denies abdominal pain. On 2.5L/min oxygen, denies shortness of breath, cough, or respiratory wheezing. 06/06: Patient had multiple bowel movements overnight. Still on TPN. On clear liquid diet. Denies any nausea or vomiting. Denies abdominal pain. On 3L/min oxygen, denies shortness of breath, cough, or respiratory wheezing. d/c NG tube according to Dr. Schmidt. Family would like patient to go to SNF for 1-2 week upon hospital discharge, will talk to manager case tomorrow. 06/07: Afebrile overnight. Bowel movement overnight. Current oxygen requirement 4 L/min. Patient has increasing degree of shortness of breath but denies cough or wheezing. She is complaining of anxiety. She denies any chest pain or abdominal pain or palpitations. WBC 33 this morning. Serum potassium level 5.9. We are going to repeat chest x-ray and KUB this morning to look for any signs of new infections or other complications. Start broad-spectrum antibiotics vancomycin and Zosyn. Lasix IV. Blood culture x2. Repeat chemistry at noon. 06/08: On 4L/min oxygen. WBC 15.6. Seen by familia JARAMILLO. level 4 dysphagia diet. Had one BM earlier today according to patient. c/o same degree of SOB. Minimal cough. Positive for respiratory wheezing. Denies any fever or chills. Denies abdominal pain. Denies nausea or vomiting. MRSA screening negative-->d/c Vancomycin. Continue Zosyn. Continue supplemental oxygen. Level 4 dysphagia diet according to SLT recs. Continue TPN and general surgeon recs. 06/09: Afebrile overnight. Currently on room air. WBC 10.1. Have increasing degree of dysphagia. Same degree of shortness of breath with productive cough and respirat ory wheezing. Denies any fever or chills. Denies abdominal pain. Denies nausea or vomiting. Continue Zosyn for aspiration pneumonia. Continue to work with SLT for swallowing evaluation. Continue TPN and general surgeon recs. 06/10 Rapid response was called for respiratory failure, patient was transferred to the PCU. Chest x-ray showed a moderate vague right basilar infiltrate. Zosyn continued for pneumonia. The patient recovered back to her baseline oxygen requirement. Goals of care discussed with the patient and family, discussed guarded prognosis and CODE STATUS. CODE STATUS was changed to DNR in accordance with the patient's and family's wishes. Family requested the patient be transferred back to medical surgical unit due to anxiety in the PCU from prior experience with a family member's . The patient later developed increasing respiratory distress. Comfort cares started, the patient later that night. Additional Data Attending physician: Celestino Jo MD
== END 2021-06-11 00:04 | disposition expired | DRG 388 ==
LOC: ED 18:54 → MEDSUR 23:23 → ICU 06-10 14:05 → MEDSUR 06-10 15:56
PROVIDERS: ADMIT Internal Medicine; ATTEND Internal Medicine